=== PATIENT | female | born 1960 ===

== ENCOUNTER 2017-01-06 17:02 | Observation (INO) | payer MEDICARE, MEDICAID ==
[~2017-01-06] VITALS: Ht 175.3 cm; Wt 175.3 kg
[~2017-01-06 17:02] MED LIST: ALBU18HF INH; ARIP20TA10 PO; ARIP30TA PO; DOCU240C41 PO; EPIN0.3P2 IM; FLUT16SP NASAL; FRSM80T PO; HYDR50TA76 PO; INSU100I18 SQ; INSU100V7 SUBQ; IPRA3AMP IH; LAMO200T2 PO; MOME13HF IH; MONT10TA23 PO; NITR0.4T SL; OMEP40CA36 PO; ONDA-53 PO; OXYC1TAB24 PO; PRAM0.5T3 PO; PRAZ1CAP2 PO; PRAZ5CAP3 PO; PRE10 PO; PREG200C PO; PROC10TA PO; SIMV40TA5 PO; SPIR50TA2 PO; TOPI50TA88 PO; TRAZ-115 PO; VENL37.587 PO
[2017-01-06 17:08] VITALS: PULSE 104; RESP 22; O2SAT 100
--- NOTE | 2017-01-06 17:59 | ED.REPORT ---
HPI-Dyspnea / Wheezing Date of Service Jan 06, 2017 ED Provider: Brendan Huang DO A 56 year old female with a medical history including diabetes, COPD, CVA, and sleep apnea on BiPAP presents to the ED with shortness of breath onset just prior to arrival. Associated symptoms include wheeze, cough, chest congestion, chills, nausea, vomiting, and diarrhea. The patient denies fever. She used a double dose of nebulizer at home with no improvement. Nursing Notes Stated Complaint: SHORTNESS OF BREATH Chief Complaint: Respiratory Distress Nursing Notes Reviewed: Yes Allergies: Coded Allergies: Penicillins (Verified Allergy, Severe, Anaphylaxis/SWELLING, 10/12/16) fluoxetine (Verified Allergy, Severe, MOOD ALTERATION, 10/12/16) haloperidol (Verified Allergy, Severe, body jerks, 10/12/16) lithium (Verified Allergy, Severe, SWELLING, 10/12/16) morphine (Verified Allergy, Severe, Hallucinations, 10/12/16) pramipexole (Verified Allergy, Severe, 10/12/16) hypertension propoxyphene (Verified Allergy, Severe, NAUSEA, 10/12/16) sumatriptan (Verified Allergy, Severe, 10/12/16) HIGH BLOOD PRESSURE tyropanic acid (Verified Allergy, Severe, Nausea, 10/12/16) erythromycin base (Verified Allergy, Intermediate, severe abd pain, ) propranolol (Verified Allergy, Intermediate, hypotension, 01/06/17) cephalexin (Verified Allergy, Unknown, 10/12/16) Uncoded Allergies: ASPARAGUS (Allergy, Mild, UNKNOWN, 10/12/16) STRAWBERRIES (Allergy, Unknown, UNKNOWN, 09/22/12) Scheduled Aripiprazole (Aripiprazole) 15 Mg Tablet 15 MG PO DAILY HydrOXYzine HCl (HydrOXYzine HCl) 10 Mg Tablet 50 MG PO HS Insulin Aspart (NovoLOG U100 Insulin Vial) 100 U/Ml U 30-50 UNIT SUBQ TIDAC Insulin Glargine (Lantus U100 Insulin Vial) 100 Unit/Ml Vial 40 SUBQ BID Omeprazole (Omeprazole) 40 Mg Capsule.dr 40 MG PO BID Prazosin (Prazosin) 5 Mg Capsule 5 MG PO HS Pregabalin (Lyrica) 200 Mg Capsule 200 MG PO TID Simvastatin (Simvastatin) 40 Mg Tablet 40 MG PO HS Spironolactone (Spironolactone) 50 Mg Tablet 50 MG PO BID Topiramate (Topiramate) 100 Mg Tablet 100 MG PO BID Trazodone (Trazodone) 50 Mg Tablet 75 MG PO HS Venlafaxine ER (Venlafaxine ER) 75 Mg Tab.er.24 75 MG PO DAILY Scheduled PRN Albuterol Sulfate (Ventolin HFA Inhaler) 200 Puff/18 Gm Inhaler 2 PUFFS INH PRN For Shortness of Breath Epinephrine (Epipen 2-Ipetro) 0.3 Mg/0.3 Ml Auto.injct 0.3 MG IM PRN For Anaphyllaxis Ipratropium/Albuterol Sulfate (Iprat-Albut 0.5-3(2.5) mg/3 mL Inhalant Soln) 3 Ml Ampul.neb 3 ML IH TID-QID PRN PRN For Shortness of Breath Nitroglycerin SL (Nitrostat) 0.4 Mg Tab.subl 0.4 MG SL Q5MIN PRN PRN For Chest Pain oxyCODONE-Acetaminophen 5-325 mg (oxyCODONE-Acetaminophen 5-325 mg) 1 Each Tablet 1 TAB PO QID PRN PRN For Pain Miscellaneous Medications Docusate Sodium (Docusate Sodium) 250 Mg Capsule 500 MG PO General Time Seen by MD: 17:58 Chief Complaint Shortness of breath Hx Obtained From: Patient Arrived By: Walk-in Sudden in Onset?: No Onset Occurred: Just prior to arrival Symptom Duration: Since onset Location: : None Severity: Current: No pain currently Severity: Maximum: No pain Associated with: Reports: Cough, Nausea, Vomiting, Wheeze, Denies: Fever Pertinent Negative: Relieved by nothing Context Related History: Reports: COPD Asthma History: Asthma diagnosed Recent Healthcare: No recent doctor visit Similar Sx Previous: Yes Past Medical History Past Medical History Notes: Past Medical History Fibromyalgia Type 2 diabetes COPD Asthma Restless leg Bipolar disorder Depression CVA Sleep apnea-On BIPAP arthritis GERD Past Surgical History Right ankle ORIF and hardware removal Exostectomy an Achilles tendon lengthening. Left eye surgery. She has a prosthetic left eye. Arthroscopic knee and shoulder surgery. Family History Mother: CHF, CKD, DM, stroke, breast cancer Father: Cardiovascular disease, CKD, alcoholic Brother: Cardiovascular disease (7 stents), alcoholic Smoking History Former Smoker Social History Alcohol Use: "Social" Drug Use: Denies drug use Other Social History: Good social support, Local resident Ambulatory Status Independent Review of Systems Review of Systems Note: + chest congestion Constitutional: Reports: Chills, Denies: Fever Respiratory: Reports: Non-productive cough, Shortness of breath, Wheezing Complete sys rev & neg: except as marked. GI: Reports: Diarrhea, Nausea, Vomiting Physical Exam Initial Vital Signs Vital Signs (First) Date Time Temp Pulse Resp B/P Pulse Ox O2 Delivery O2 Flow Rate FiO2 01/06/17 17:08 37 104 22 100 Room Air Initial VS: Reviewed Head / Eyes: Atraumatic, Normocephalic Skin: Warm, Dry Neurologic: Alert, Oriented, Nonfocal Psychiatric: Mood/affect normal, Behavior normal, Normal thought content General/Constitutional: Awake, Alert Distress / Hydration: Positive: Distress moderate Appearance / Presentation: Positive: Obese Neck: Supple, Full range of motion, No JVD Respiratory / Chest: Breath sounds = bilat Resp Distress / Stridor: Positive: Resp distress moderate Wheezing / Retractions: Positive: Wheezing moderate (Diffuse) Tachypneic Cardiovascular: Regular rhythm, Heart sounds NL Heart Rate / Rhythm: Positive: Tachycardia Lower Ext Edema: Positive: Pitting (Bilateral) Interpretation & Diagnostics INFLUENZA NEGATIVE Lab Results Interpretation Result Diagram: 01/06/178 01/06/178 Test 01/06/17 18:38 White Blood Count 9.0th/mm3 (3.8-10.1) Red Blood Count 4.93mil/mm3 (3.90-5.20) Hemoglobin 13.8g/dL (12.0-15.6) Hematocrit 42.4% (35.0-46.0) Mean Corpuscular Volume 86.0fL (81-100) Mean Corpuscular Hemoglobin 28.0pg (27.0-35.0) Mean Corpuscular Hemoglobin Concent 32.5% (32.0-37.0) Red Cell Distribution Width 13.9% (12.3-15.4) Platelet Count 204bil/L (150-400) Neutrophils (%) (Auto) 66.8% (40-74) Lymphocytes (%) (Auto) 23.0% (14-46) Monocytes (%) (Auto) 7.7% (4-12) Eosinophils (%) (Auto) 1.9% (0-5) Basophils (%) (Auto) 0.3% (0-3) Sodium Level 139mEq/L (134-144) Potassium Level 3.8mEq/L (3.5-5.2) Chloride Level 101mEq/L (97-108) Carbon Dioxide Level 23mmol/L (18-29) Blood Urea Nitrogen 11mg/dL (6-24) Creatinine 0.87mg/dL (0.57-1.00) Estimat Glomerular Filtration Rate 96mL/min (>59) Glucose Level 155mg/dL (60-99) Calcium Level 9.0mg/dL (8.5-10.1) Magnesium Level 2.0mg/dL (1.6-2.6) Total Bilirubin 0.2mg/dL (0.0-1.2) Aspartate Amino Transf (AST/SGOT) 19U/L (0-50) Alanine Aminotransferase (ALT/SGPT) 18U/L (0-32) Alkaline Phosphatase 119U/L (25-150) Troponin T < 0.010ug/L (0.0-0.011) Pro-B-Type Natriuretic Peptide 30.08pg/mL (0-287) Total Protein 7.5g/dL (6.4-8.4) Albumin 4.1g/dL (3.4-5.0) Procalcitonin 0.05ng/mL (0.00-0.08) Hold Byrd Top Tube Received (Received) ECG Interpretation ECG Interpretation: Sinus rhythm rate 91 Time: 18:31 Interpreted by: ED physician X-Ray Chest Interpretation Chest Xray Interpretation: IMPRESSION: No acute cardiopulmonary disease. Dictated by: Oscar Vazquez M.D. on 01/06/2017 at 17:56 View: AP & lat Interpretation / Wet Read by: Interpret - Radiologist Re-Eval/Medical Decision Source of Hx: Old records Re-Evaluation/Progress #1: Time of Eval: 19:07 Patient Status: Condition improved Re-Evaluation/Progress Note: Discussed with patient x-ray and lab results, diagnosis, and plan for admit. Patient agrees with plan for care and all questions were addressed. Re-Evaluation/Progress #2: Time of Eval: 20:14 Patient Status: Condition improved Re-Evaluation/Progress Note: Patient is breathing significantly better but is actively coughing and vomiting in the ED. Consultation : Referral / Consult Name: Jerrod Jerome MD Call Returned at: 20:35 Pegger Dobby Looms: Agrees with eval, Agrees with plan, Accepts admit Counseled Regarding: Diagnosis, Lab results, Need for admission Discharge & Departure Impression: Primary Impression: Respiratory distress Additional Impression: COPD with acute exacerbation Disposition: ADMITTED TO HOSPITAL Discharge Condition All VS Reviewed: Yes Condition: Stable Referrals: David Stephen MD (PCP) Scribe Attestation Portions of this note were transcribed by Kristen Jaime. Dr. Reina Arreguin, personally performed the history, physical exam, and medical decision-making; I reviewed and confirmed the accuracy of the information in the transcribed note. Signed by: Tal Steele, 01/06/2017, 21:47 copies to: David Stephen MD, Todd P DO Jan 06, 2017 17:59 KRISTEN JAIME Jan 06, 2017 18:51 Referrals: David Stephen MD (PCP) Scribe Attestation Portions of this note were transcribed by Kristen Jaime. Dr. Reina Arreguin, personally performed the history, physical exam, and medical decision-making; I reviewed and confirmed the accuracy of the information in the transcribed note. Signed by: Tal Steele, 01/06/2017, 21:47 copies to: David Stephen MD, Todd P DO Jan 06, 2017 17:59 KRISTEN JAIME Jan 06, 2017 18:51
--- NOTE | 2017-01-06 18:03 | DRSVH ---
PROCEDURE: X-RAY CHEST, TWO VIEWS ([id number]) INDICATIONS: 56 year-old female with shortness of breath. TECHNIQUE: 2 views of the chest were acquired. COMPARISON: [facility], CR, XR CHEST 1VW (PORTABLE), 10/12/2016, 8:48. [facility], CR, XR CHEST 2V AP/PA AND LAT, 10/10/2016, 7:43 PM. [facility], CR, XR CHEST 2 V AP/PA AND LAT, 06/10/2016, 7:50 PM. FINDINGS: Surgical changes and devices: Thoracic spine stimulator electrodes are again noted. Lungs and pleura: No pleural effusions or pneumothorax. Lungs are clear. Mediastinum: Mediastinal contours are normal. Heart size is normal. Bones and chest wall: No suspicious bony abnormalities. Soft tissues appear unremarkable. IMPRESSION: No acute cardiopulmonary disease. Dictated by: Oscar Vazquez M.D. on 01/06/2017 at 17:56 Approved by: Oscar Vazquez M.D. on 01/06/2017 at 17:57
[2017-01-06] MEDS ORDERED: Albuterol 2.5 mg/3 mL Inhalation Solution NEB ONE ×2 (18:10→18:25)
[2017-01-06] MEDS ORDERED: Albuterol-Ipratropium 3 mL Inhalation Solution NEB ONE (18:25)
[2017-01-06] MEDS ORDERED: MethylprednisoLONE Sodium Succinate 62.5 mg/mL 2 mL Inj IVPUSH ONE (18:25)
[2017-01-06 18:46] LABS: BASOPHILS % (AUTO) 0.3 % (0-3); EOSINOPHILS % (AUTO) 1.9 % (0-5); MONOCYTES % (AUTO) 7.7 % (4-12); NEUTROPHILS % (AUTO) 66.8 % (40-74); Platelet Count 204 bil/L (150-400)
[2017-01-06 19:18] LABS: TROPONIN T < 0.010 ug/L (0.0-0.011)
[2017-01-06] MEDS ORDERED: Lidocaine PF 2% 5 mL Inhalation Solution INHALATION ONE (19:25)
[2017-01-06 19:33] VITALS: PULSE 100; RESP 22; O2SAT 91
[2017-01-06] MEDS ORDERED: Ondansetron 2 mg/mL 2 mL Inj IVPUSH PRN (20:15)
[2017-01-06] MEDS ORDERED: Doxycycline Inj 100 MG in Dextrose 5% Minibag Plus 100 ML IV ONE (20:30)
[2017-01-06] MEDS ORDERED: Polyethylene Glycol (PEG) 17 Gm Powder PO PRN (20:40)
[2017-01-06] MEDS ORDERED: Alum-Mag Hydrox-Simeth 30 mL Suspension PO PRN (20:40)
[2017-01-06] MEDS ORDERED: Glucose 40% Oral Gel 15 Gm Tube PO PRN (21:05)
[2017-01-06 21:28] VITALS: BP 134/70; PULSE 102; RESP 20; O2SAT 91
[2017-01-06 22:26] VITALS: BP 119/76; PULSE 99; RESP 24; O2SAT 94
[2017-01-06] MEDS: Insulin LISPRO 300 Unit/3 mL Inj SUBQ SCH (23:03)
[2017-01-06] MEDS ORDERED: DOCU250C2 PO (23:59)
[2017-01-07] VITALS (13 sets, daily range): BP systolic 108–143; BP diastolic 51–83; PULSE 67–89; RESP 15–24; O2SAT 90–97
[2017-01-07] MEDS ORDERED: INSU100V7 SUBQ
[2017-01-07] MEDS ORDERED: INSU100C8 SUBQ (00:02)
[2017-01-07] MEDS ORDERED: VENL75TA87 PO (00:05)
[2017-01-07] MEDS ORDERED: HYDR-3605 PO (00:07)
[2017-01-07] MEDS ORDERED: ARIP15TA7 PO (00:09)
[2017-01-07] MEDS ORDERED: TOPI-31 PO (00:12)
[2017-01-07] MEDS ORDERED: 0.9% Sodium Chloride 250 ML ONE (00:25)
[2017-01-07] MEDS: Heparin 5,000 Unit/mL Inj SUBQ SCH ×3 (00:34→17:43)
[2017-01-07] MEDS: Albuterol-Ipratropium 3 mL Inhalation Solution NEB SCH ×6 (01:55→22:02)
[2017-01-07] MEDS: Nystatin 100,000 Unit/Gm 15 Gm Powder TOPICAL SCH ×3 (02:06→21:40)
--- NOTE | 2017-01-07 02:40 | PCM.HPMED ---
Subjective Date of Service Jan 06, 2017 Primary Provider: Admitting Physician: Primary Care Physician: David Stephen MD Attending Physician: Chief Complaint: Acute shortness of breathe History of Present Illness: Janet Pat is a 56 year old female with Diabetes, COPD, Stroke, and sleep apnea on BiPAP presents to [facility] emergency department with shortness of breath onset just prior to arrival. Patient reporting symptoms have been ongoing for 4 days. Associated symptoms include wheeze, dry cough, chest congestion, chills, nausea, vomiting, and diarrhea. The patient denies fever. She used a double dose of nebulizer at home with no improvement earlier today. Her room mate was coughing last week. She continues to smoke Patient was hospitalized for similar issues in September. He had her flu vaccination last year Case discussed with Dr Huang, patient will be admitted with persistent symptoms despite intervention in the ED. Review of Systems: Pertinent positives as noted in HPI. All other systems were reviewed and are negative Allergies Coded Allergies: Penicillins (Verified Allergy, Severe, Anaphylaxis/SWELLING, 10/12/16) fluoxetine (Verified Allergy, Severe, MOOD ALTERATION, 10/12/16) haloperidol (Verified Allergy, Severe, body jerks, 10/12/16) lithium (Verified Allergy, Severe, SWELLING, 10/12/16) morphine (Verified Allergy, Severe, Hallucinations, 10/12/16) pramipexole (Verified Allergy, Severe, 10/12/16) hypertension propoxyphene (Verified Allergy, Severe, NAUSEA, 10/12/16) sumatriptan (Verified Allergy, Severe, 10/12/16) HIGH BLOOD PRESSURE tyropanic acid (Verified Allergy, Severe, Nausea, 10/12/16) erythromycin base (Verified Allergy, Intermediate, severe abd pain, ) propranolol (Verified Allergy, Intermediate, hypotension, 01/06/17) cephalexin (Verified Allergy, Unknown, 10/12/16) Uncoded Allergies: ASPARAGUS (Allergy, Mild, UNKNOWN, 10/12/16) STRAWBERRIES (Allergy, Unknown, UNKNOWN, 09/22/12) Home Medications From [facility], not yet confirmed Janet Pat. [id number] 1960 12/27/2016 04:00 PM 12/03 Abilify 20 mg tablet take 1 tablet by oral route every day albuterol sulfate HFA 90 mcg/actuation aerosol inhaler inhale 2 puff by inhalation route every 4 - 6 hours as needed DuoNeb 0.5 mg-3 mg(2.5 mg base)/3 mL solution for nebulization inhale 1 vial by nebulizer every 3 hours while awake and every 1 hours as needed for shortness of breath EpiPen 0.3 mg/0.3 mL (1:1,000) IM Injector inject (0.3MG) by intramuscular route once as needed for anaphylaxis Fioricet 50 mg-325 mg-40 mg tablet take 1 tablet by oral route every 4 hours as needed not to exceed 6 tablets per 24hrs; no more than 2xweek fluticasone 50 mcg/actuation nasal spray,suspension INHALE 1 SPRAY BY INTRANASAL ROUTE 2 TIMES EVERY DAY IN EACH NOSTRIL Lantus Solostar 100 unit/mL (3 mL) subcutaneous insulin pen inject by subcutaneous route as per insulin protocol 60 units in am and 60 units in pm every day Lasix 80 mg tablet TAKE 2 TABLETS ORALLY TWICE DAILY. lidocaine 5 % topical patch apply 1 patch by transdermal route every day (May wear up to 12hours.) Lyrica 200 mg capsule take 1 capsule by oral route 3 times every day magnesium 250 mg tablet as needed meclizine 25 mg tablet take 1 tablet by oral route 3 times every day as needed melatonin 5 mg capsule 1-2 at bedtime as needed Mirapex 0.5 mg tablet TAKE ONE TABLET BY MOUTH 2-3 HRS BEFORE BEDTIME MONTELUKAST 10MG TABLETS TAKE 1 TABLET BY MOUTH EVERY NIGHT AT BEDTIME Nitrostat 0.[address] 1 tablet by sublingual route at the 1st sign of attack; may repeat every 5 min until relief; if pain persists after 3 tablets in 15 min, prompt medical attention is recommended Novolog Flexpen 100 unit/mL subcutaneous inject by subcutaneous route per prescriber's instructions. Insulin dosing requires individualization. nystatin 100,000 unit/gram topical cream apply by topical route 2 times every day to the affected area(s) omeprazole 40 mg capsule,delayed release Take 1 capsule by mouth every morning about 30 minutes before breakfast and 30 minutes before dinner oxycodone-acetaminophen 5 mg-325 mg tablet take 1 tablet by oral route every 6 hours as needed prochlorperazine maleate 10 mg tablet take 1 tablet for nausea with migraine up to 3 times daily simvastatin 40 mg tablet TAKE ONE TABLET BY MOUTH EACH EVENING for high cholesterol. spironolactone 50 mg tablet TAKE 1 TABLET (50MG) BY ORAL ROUTE TWICE EVERY DAY topiramate 100 mg tablet TAKE 1 TABLET BY ORAL ROUTE 2 TIMES EVERY DAY trazodone 50 mg tablet take 1.5 tablet by oral route every day after meals Vitamin C 1,000 mg tablet Taking 1 tablets daily Vitamin D3 1,000 unit tablet take 2 tablet a day Voltaren 1 % topical gel apply (2G) by topical route 4 times every day to the affected area(s) PMH Fibromyalgia Type 2 diabetes COPD Asthma Restless leg Bipolar disorder Depression CVA Sleep apnea-On BIPAP Arthritis GERD . Surgical History Right ankle ORIF and hardware removal Exostectomy an Achilles tendon lengthening. Left eye surgery. She has a prosthetic left eye. Arthroscopic knee and shoulder surgery. Family History Mother: CHF, CKD, DM, stroke, breast cancer Father: Cardiovascular disease, CKD, alcoholic Brother: Cardiovascular disease (7 stents), alcoholic Social History Hx Alcohol Use: Yes ("occasionally") Hx Substance Use: No Hx Tobacco Use: Yes (10 cigarettes/day) Smoking Status: Former Smoker Living Arrangement: with Friends/Roommate Exam Vital Signs Vital Sign - Last Date Time Temp Pulse Resp B/P Pulse Ox O2 Delivery O2 Flow Rate FiO2 01/06/17 19:33 100 22 91 Room Air 01/06/17 17:08 37 Exam General: Alert, Oriented X3, Cooperative, No acute Distress. Talking full sentences Eyes: PERRLA, Scleral Anicteric Mouth: Mouth Normal, Mucous Membranes Moist/[place] Neck: Supple, no Thyromegaly, trachea central. Chest & Lungs: Expiratory wheezing with decreased breathe sounds at bases Cardiovascular: Normal S1, Normal S2, No Murmurs/Rubs/Gallops, Regular Rate/ Rhythm, (No JVD, no peripheral edema) Pulses: Radial (present and equal), Dorsalis Pedi (present and equal) Abdomen: Soft, Non-tender, Non-distended, Normoactive bowel tones. Musculoskeletal: Unremarkable. Normal range of motion, no swollen or erythematous joints Extremities: No edema, no cyanosis, no clubbing. Skin: No rashes. Warm and dry, no erythematous areas Neurological: Grossly neurologically intact, Normal Speech, Sensation Intact Lymphatic: Lymph nodes Cervical and Axillary not palpable. Lab and Diagnostics Labs Laboratory Tests Test 01/06/17 18:38 White Blood Count 9.0th/mm3 (3.8-10.1) Red Blood Count 4.93mil/mm3 (3.90-5.20) Hemoglobin 13.8g/dL (12.0-15.6) Hematocrit 42.4% (35.0-46.0) Mean Corpuscular Volume 86.0fL (81-100) Mean Corpuscular Hemoglobin 28.0pg (27.0-35.0) Mean Corpuscular Hemoglobin Concent 32.5% (32.0-37.0) Red Cell Distribution Width 13.9% (12.3-15.4) Platelet Count 204bil/L (150-400) Neutrophils (%) (Auto) 66.8% (40-74) Lymphocytes (%) (Auto) 23.0% (14-46) Monocytes (%) (Auto) 7.7% (4-12) Eosinophils (%) (Auto) 1.9% (0-5) Basophils (%) (Auto) 0.3% (0-3) Sodium Level 139mEq/L (134-144) Potassium Level 3.8mEq/L (3.5-5.2) Chloride Level 101mEq/L (97-108) Carbon Dioxide Level 23mmol/L (18-29) Blood Urea Nitrogen 11mg/dL (6-24) Creatinine 0.87mg/dL (0.57-1.00) Estimat Glomerular Filtration Rate 96mL/min (>59) Glucose Level 155mg/dL (60-99) Calcium Level 9.0mg/dL (8.5-10.1) Magnesium Level 2.0mg/dL (1.6-2.6) Total Bilirubin 0.2mg/dL (0.0-1.2) Aspartate Amino Transf (AST/SGOT) 19U/L (0-50) Alanine Aminotransferase (ALT/SGPT) 18U/L (0-32) Alkaline Phosphatase 119U/L (25-150) Troponin T < 0.010ug/L (0.0-0.011) Pro-B-Type Natriuretic Peptide 30.08pg/mL (0-287) Total Protein 7.5g/dL (6.4-8.4) Albumin 4.1g/dL (3.4-5.0) Hold Byrd Top Tube Received (Received) Microbiology 01/06/17 Blood Culture, Received Pending 01/06/17 Influenza Screen - Final, Complete Result Diagram: 01/06/17183701/06/171837 X-Rays, CTs and MRIs X-RAY CHEST, TWO VIEWS 01/06 IMPRESSION: No acute cardiopulmonary disease. Dictated by: Oscar Vazquez M.D. on 01/06/2017 at 17:56 Approved by: Oscar Vazquez M.D. on 01/06/2017 at 17:57 Assessment & Plan Janet Pat is a 56 year old female with Diabetes, COPD, Stroke, and sleep apnea on BiPAP presents to [facility] emergency department with shortness of breath 1. COPD with acute exacerbation. Present on admission. Chest X ray showed no infiltrates and procalcitonin not elevated. I doubt patient has a bacterial infection and therefore does not need antibiotics. Patient also has history of Asthma and its difficult to say if the patient also has Asthma attack as well. Last September an echo showed no evidence to suggest patient has Heart failure. With the flu season in full swing a viral PCR will be obtained - Prednisone 40 mg daily x 5 days - DuoNeb scheduled - continue Singulair - continue Fluticasone and Dulera 2. Diabetes Type 2, insulin using with diabetic neuropathy Anticipating some steroid induced hyperglycemia - continue Lantus 60 BID and Lyrica - Lispro medium correction algorithm 3 Obstructive Sleep apnea - On BIPAP for sleep at home. Continue BiPAP at night 4 Asthma - Continue home montelukast 5. Nicotine dependence. ongoing Counseled patient concerning cessation and benefits - Nicotine patch as needed 6. Restless leg syndrome - Continue home Mirapex 7 Hyperlipidemia - Continue home simvastatin - Acetaminophen as needed for mild pain/fever/headache - Bowel regimen as needed - Antiemetic as needed Patient admitted under inpatient status with expected length of stay > 2 midnights for severity of present symptoms, complexities of treatment plan and risk for adverse event . Resuscitation Status: CPR: Attempt Resuscitation Jerrod Jerome MD Jan 06, 2017 20:46
[2017-01-07] MEDS: oxyCODONE-Acetamin 5-325 mg Tablet PO PRN ×2 (03:40→18:19)
--- NOTE | 2017-01-07 06:03 | NUR ---
Progress Note PT was admitted to the floor from the ED around 2300 last [facility]. She presented to ED with SOB and cough. MD reports at bedside it is believed to be viral. CXRAY was negative. She also has a hx of COPD and asthma contributing. She is on 1lNC and sats are in low 90's. Her lung sanchez are extremely tight t/o with audible wheezes noted. We administered IV doxycycline. She was medicated once with prn percocet for chronic pain related issues. SHe has spinal stenosis and a spinal stimulator, resulting in BLE weakness and severe pain. Good relief with medication. She uses a cpap at [facility]. PT also diabetic. BG in 200's. SHe is obese, but able to ambulate with a walker and 1 person SBA. Her skin is grossly intact aside from redness under her bilateral breasts where miconazole was applied. Tessalon pearls given once with good relief of cough. Will CTM. Addendum: 01/07/17 at 0609 by VANESA FERNÁNDEZ RN She is in NSR in the 80's.
[2017-01-07] MEDS: Venlafaxine XR 75 mg ER24 Capsule PO SCH (08:30)
[2017-01-07] MEDS: Pantoprazole 40 mg ER24 Tablet PO SCH ×2 (09:36→21:38)
[2017-01-07] MEDS: predniSONE 20 mg Tablet PO SCH (09:36)
--- NOTE | 2017-01-07 09:37 | NUR ---
Social Work: Initial Assessment D: Per EMR review, pt is a 56 year old female admitted for Acute Exacerbation of COPD. Pt is Medicare with [facility] supplement; pt has no LTC insurance or VA benefits. PCP is David Stephen MD. NOK is Jocelynn Sifuentes, s/o, . Advanced directive and DPOA ppw on file from 2009- pt states to [employer] that this current AD and DPOA is no longer valid and would like it removed from her medical record. Pt provided with a blank copy as she would like to have her s/o named as DPOA. [employer] contacted Medical Records to have 2010 AD and DPOA ppw removed from the pt's EMR, per pt's request. Readmit score is not entered at this time. DATA [employer]NER met with pt at bedside. Sw role explained. See initial assessment. Pt lives at home, is [place]aila [place] with her s/o. Pt states she uses a walker for ambulation in the home and uses an electric scooter for ambulation in the community. Pt also has a Bipap and Nebulizer supplied through [employer]. Pt denies ever having HH but had a short stay at [facility] several years ago. [employer] reviewed possible HH as a discharge referral. Pt can not commit to homebound status and states she would prefer to do outpatient PT if necessary. Pt states that her s/o will transport her home when ready. A: Pt who lives at home with her s/o. P: Anticipate pt to discharge home via POV; Pt declined HH- is not homebound. No social work needs identified at this time. [employer] to continue to follow. PRIYANK Tang Addendum: 01/07/17 at 0946 by CORDELL SANTIAGO SS Amended: Links added.
[2017-01-07] MEDS: Insulin LISPRO 300 Unit/3 mL Inj SUBQ SCH ×4 (10:05→21:41)
[2017-01-07] MEDS: Insulin GLARgine 100 Unit/mL Syringe SUBQ SCH ×2 (10:08→21:51)
--- NOTE | 2017-01-07 12:34 | NUR ---
Coughing Patient at side of bed coughing intermittently, this RN administered Tessalon Pearls. Patient stated it helped, visiting with significant other while sitting on side of bed. Care continues.
--- NOTE | 2017-01-07 12:58 | NUR ---
Case Management: Clarification of patient status: observation per MD order. Ania Ramirez RN
--- NOTE | 2017-01-07 13:27 | NUR ---
Discharge Patient discharged at approximately 1310 to home with son. Patient given discharge packet to include: Two new prescriptions, next dose to be taken for medications clearly written and dated, educational material for Community Acquired Pneumonia and follow up appointment scheduled. Patient's IV's DC'd with both catheters intact, tele DC'd youth nutritional monitor notified. Patient left with all belongings, escorted by DIRECTOR OF PSYCHIATRY in wheelchair with son to the door. Addendum: 01/07/17 at 1525 by SUSU PARKER RN Wrong patient
--- NOTE | 2017-01-07 14:16 | PCM.PNMED ---
Subjective Date of Service Jan 07, 2017 Subjective Patient was examined at bedside today. Patient denies any chest pain, nausea, vomiting, diarrhea. Patient still complains of cough and shortness of breath however she states that this is significantly improved. Exam Vital Signs Vital Sign - Last Date Time Temp Pulse Resp B/P Pulse Ox O2 Delivery O2 Flow Rate FiO2 01/07/17 13:31 88 18 92 Aerosol Mask 01/07/17 12:04 143/71 01/07/17 09:10 36.5 01/07/17 04:07 21 Intake and Output 01/06/17 01/06/17 01/07/17 Cumulative From/Thru 15:00 23:00 07:00 01/06/17 17:08 - 01/07/17 06:20 Intake Total 737 ml 737 ml Output Total 600 ml 600 ml Balance 137 ml 137 ml Intake Oral 637 ml 637 ml IV Total 100 ml 100 ml Output Urine Total 600 ml 600 ml # Voids 2 2 Exam Physical Exam: GEN: Patient was awake, alert, responding appropriately to questions HEENT: PERRLA, EOMI, Neck soft supple, trachea midline, nomocephalic/atraumatic CV: +S1/S2, RRR, no murmurs auscultated Respiratory: Coarse breath sounds, positive wheezing, no rales or rhonchi GI: +bowel sounds x4, soft, compressible, non TTP, obese EXT: no c/c/e Neuro: CN II-XII grossly intact Psych: mood and affect were appropriate IVs and Medications Medications Reviewed: Medications were reviewed in detail Medications Current Medications Ondansetron HCl 4 mg Q15M PRN IVPUSH Last administered on 01/06/17 20:19; Admin Dose 4 MG; Start 01/06/17 at 20:15 Heparin Sodium (Porcine) 5,000 unit Q8 SUBQ Last administered on 01/07/17 10:07 ; Admin Dose 5,000 UNIT; Start 01/07/17 at 00:30 Al Hydrox/Mg Hydrox/Simethicone 30 ml Q6H PRN PO; Start 01/06/17 at 20:40 Senna 17.2 mg BID PRN PO; Start 01/06/17 at 20:40 Polyethylene Glycol 17 gm DAILY PRN PO; Start 01/06/17 at 20:40 Acetaminophen 650 mg Q4H PRN PO; Start 01/06/17 at 20:40 Prednisone 40 mg DAILYWM PO Last administered on 01/07/17 09:36; Admin Dose 40 MG; Start 01/07/17 at 08:00 Albuterol/ Ipratropium 3 ml Q4 NEB Last administered on 01/07/17 13:28; Admin Dose 3 ML; Start 01/07/17 at 00:30 Insulin Human Lispro Nutritional Dose to be given pr... [facility] SUBQ Last administered on 01/07/17 12:41; Admin Dose 1 UNIT; Start 01/06/17 at 22:00 Benzonatate 100 mg TID PRN PO Last administered on 01/07/17 10:08; Admin Dose 100 MG; Start 01/06/17 at 22:30 Nystatin 1 applic BID TOPICAL Last administered on 01/07/17 10:10; Admin Dose 1 APPLIC; Start 01/07/17 at 00:30 Aripiprazole 15 mg DAILY PO Last administered on 01/07/17 09:37; Admin Dose 15 MG; Start 01/07/17 at 08:30 Docusate Sodium 500 mg DAILY PO Last administered on 01/07/17 09:38; Admin Dose 500 MG; Start 01/07/17 at 08:30 Insulin Glargine 60 unit BID SUBQ Last administered on 01/07/17 10:08; Admin Dose 60 UNIT; Start 01/07/17 at 08:30 Nitroglycerin 0.4 mg Q5MIN PRN SL; Start 01/07/17 at 00:30 Oxycodone/ Acetaminophen 1 tab QID PRN PO Last administered on 01/07/17 03:40 ; Admin Dose 1 TAB; Start 01/07/17 at 00:30 Prazosin HCl 5 mg HS PO; Start 01/07/17 at 21:00 Topiramate 100 mg BID PO Last administered on 01/07/17 09:37; Admin Dose 100 MG ; Start 01/07/17 at 08:30 Trazodone HCl 75 mg HS PO; Start 01/07/17 at 21:00 Hydroxyzine HCl 50 mg HS PO; Start 01/07/17 at 21:00 Pantoprazole 40 mg BID PO Last administered on 01/07/17 09:36; Admin Dose 40 MG ; Start 01/07/17 at 08:30 Pregabalin 200 mg TID PO Last administered on 01/07/17 10:08; Admin Dose 200 MG ; Start 01/07/17 at 08:30 Atorvastatin Calcium 20 mg HS PO; Start 01/07/17 at 21:00 Spironolactone 50 mg BID PO Last administered on 01/07/17 09:38; Admin Dose 50 MG; Start 01/07/17 at 08:30 Venlafaxine HCl 75 mg DAILY PO Last administered on 01/07/17 08:30; Admin Dose 75 MG; Start 01/07/17 at 08:30 Lab and Diagnostics Result Diagram: 01/06/17 1838 01/06/17 1838 X-Rays, CTs and MRIs X-RAY CHEST, TWO VIEWS 01/06 IMPRESSION: No acute cardiopulmonary disease. Dictated by: Oscar Vazquez M.D. on 01/06/2017 at 17:56 Approved by: Oscar Vazquez M.D. on 01/06/2017 at 17:57 Assessment & Plan Janet Pat is a 56 year old female with Diabetes, COPD, Stroke, and sleep apnea on BiPAP presents to [facility] emergency department with shortness of breath COPD with acute exacerbation. Present on admission. Chest X ray showed no infiltrates and procalcitonin not elevated. I doubt patient has a bacterial infection and therefore does not need antibiotics. Patient also has history of Asthma and its difficult to say if the patient also has Asthma attack as well. Last September an echo showed no evidence to suggest patient has Heart failure. With the flu season in full swing a viral PCR will be obtained - Prednisone 40 mg daily x 5 days - DuoNeb scheduled - continue Singulair - continue Fluticasone and Dulera -Flu negative - PCR positive for RSV Diabetes Type 2, insulin using with diabetic neuropathy Anticipating some steroid induced hyperglycemia - continue Lantus 60 BID and Lyrica - Lispro medium correction algorithm Obstructive Sleep apnea - On BIPAP for sleep at home. Continue BiPAP at night Asthma - Continue home montelukast Nicotine dependence. ongoing Counseled patient concerning cessation and benefits - Nicotine patch as needed Restless leg syndrome - Continue home Mirapex Hyperlipidemia - Continue home simvastatin - Acetaminophen as needed for mild pain/fever/headache - Bowel regimen as needed - Antiemetic as needed Disposition: Patient is currently progressing well and her oxygen needs are decreasing. Patient has tested positive for RSV and this is most likely precipitated the patient's COPD exacerbation. We will continue with supportive care and if the patient continues to progress well she may be able to be discharged home tomorrow. Resuscitation Status: CPR: Attempt Resuscitation Aydee Donaldson DO Jan 07, 2017 14:16
--- NOTE | 2017-01-07 15:24 | NUR ---
Case Management: Provided Medicare BRYAN information with explanation at 1445- signed by patient and placed in chart. Copy to patient. Ania Ramirez RN
--- NOTE | 2017-01-07 18:37 | NUR ---
Sleepy/SOB Patient sleeping most of day with CPAP machine on after SO left. Patient tachypneic while moving from sitting on edge of bed to lying flat. SPO2 at 94% RA during exertion. Provided 1L NC for comfort for pt. Pt resting comfortably. Care continues.
[2017-01-08] VITALS (7 sets, daily range): BP systolic 113–114; BP diastolic 57–58; PULSE 66–80; RESP 16–18; O2SAT 92–95
[2017-01-08] MEDS: Heparin 5,000 Unit/mL Inj SUBQ SCH ×2 (00:56→08:26)
[2017-01-08] MEDS: Albuterol-Ipratropium 3 mL Inhalation Solution NEB SCH ×3 (01:09→08:35)
--- NOTE | 2017-01-08 01:46 | NUR ---
Positive Blood Culture Lab called to report blood culture positive for gram positive cocci MD italo notified. All vitals stable, pt afebrile, tele SR 70sk, pt appears to be sleeping comfortably between care interventions.
[2017-01-08] MEDS: oxyCODONE-Acetamin 5-325 mg Tablet PO PRN (04:08)
[2017-01-08 05:06] LABS: Mean Corpuscular Hemoglobin 27.9 pg (27.0-35.0); Mean Corpuscular Volume 86.9 fL (81-100)
--- NOTE | 2017-01-08 05:43 | NUR ---
Pain At start of shift pt stated pain at 6/10 in lower back but preferred to wait on additional pain medication after HS meds given. Pt slept very well for most of night and when woken for 4am vitals stated pain was at 7/10, given PRN Percocet which brought pain down to 5/10, pain also located in head w/ congestion. Pt then given Tylenol and is currently sleeping and appears comfortable.
[2017-01-08] MEDS: Insulin LISPRO 300 Unit/3 mL Inj SUBQ SCH (08:00)
[2017-01-08] MEDS: Insulin GLARgine 100 Unit/mL Syringe SUBQ SCH (08:25)
[2017-01-08] MEDS: predniSONE 20 mg Tablet PO SCH (08:26)
[2017-01-08] MEDS: Venlafaxine XR 75 mg ER24 Capsule PO SCH (08:27)
[2017-01-08] MEDS: Pantoprazole 40 mg ER24 Tablet PO SCH (08:27)
[2017-01-08] MEDS: Nystatin 100,000 Unit/Gm 15 Gm Powder TOPICAL SCH (08:27)
--- NOTE | 2017-01-08 10:41 | PCM.DIMED ---
Discharge Instructions Date of Service Jan 08, 2017 Dates of Hospitalization Jan 06, 2017 at 20:58 Discharge Diagnosis Discharge Diagnosis COPD exacerbation Asthma exacerbation RSV positive Diabetes type II Diet Heart Healthy, Diabetic Activity Other (gradually return to normal daily activities) Call your provider Fever or Chills, Shortness of breath, Bleeding, Chest pain, Vomitting, Weakness (unilateral) Patient Instructions Follow-up Provider: David Stephen MD Follow-up with PCP in: 1 week (if an appointment has not already been made please call to make appointment) Aydee Donaldson DO Jan 08, 2017 10:41
[2017-01-08] MEDS ORDERED: BENZ100C8 PO (10:44)
[2017-01-08] MEDS ORDERED: PRED-508 PO (10:44)
--- NOTE | 2017-01-08 10:48 | PCM.DC.MED ---
Discharge Summary Date of Service Jan 08, 2017 Dates of Hospitalization Date of Hospital Admission Jan 06, 2017 at 20:58 Date of Discharge: Jan 08, 2017 Providers: Admitting Physician: Jerrod Jerome MD Primary Care Physician: David Stephen MD Attending Physician: Jerrod Jerome MD Diagnosis at Time of Discharge Diagnosis at Time of Discharge COPD exacerbation Asthma exacerbation RSV positive Diabetes type II Procedures XRay, CTs & MRIs X-RAY CHEST, TWO VIEWS 01/06 IMPRESSION: No acute cardiopulmonary disease. Dictated by: Oscar Vazquez M.D. on 01/06/2017 at 17:56 Approved by: Oscar Vazquez M.D. on 01/06/2017 at 17:57 Brief History Janet Pat is a 56 year old female with Diabetes, COPD, Stroke, and sleep apnea on BiPAP presents to [facility] emergency department with shortness of breath onset just prior to arrival. Patient reporting symptoms have been ongoing for 4 days. Associated symptoms include wheeze, dry cough, chest congestion, chills, nausea, vomiting, and diarrhea. The patient denies fever. She used a double dose of nebulizer at home with no improvement earlier today. Her room mate was coughing last week. She continues to smoke Patient was hospitalized for similar issues in September. He had her flu vaccination last year Case discussed with Dr Huang, patient will be admitted with persistent symptoms despite intervention in the ED. Hospital Course Janet Pat is a 56 year old female with Diabetes, COPD, Stroke, and sleep apnea on BiPAP presents to [facility] emergency department with shortness of breath Patient was admitted to the hospital with a COPD exacerbation and URI symptoms. Patient was found to be RSV positive. Patient seemed to respond well to oxygen therapy, steroids, and supportive care. Azithromycin was not started on this patient as she does have an allergy to this medication. Patient seems to be progressing well and is currently satting at 92% or greater. Patient is to resume the use of her CPAP machine. The patient is being discharged home in stable condition. Ex COPD with acute exacerbation. Present on admission. Chest X ray showed no infiltrates and procalcitonin not elevated. I doubt patient has a bacterial infection and therefore does not need antibiotics. Patient also has history of Asthma and its difficult to say if the patient also has Asthma attack as well. Last September an echo showed no evidence to suggest patient has Heart failure. With the flu season in full swing a viral PCR will be obtained - Prednisone 40 mg daily x 5 days - DuoNeb scheduled - continue Singulair - continue Fluticasone and Dulera -Flu negative - PCR positive for RSV Diabetes Type 2, insulin using with diabetic neuropathy Anticipating some steroid induced hyperglycemia - continue Lantus 60 BID and Lyrica - Lispro medium correction algorithm Obstructive Sleep apnea - On BIPAP for sleep at home. Continue BiPAP at night Asthma - Continue home montelukast Nicotine dependence. ongoing Counseled patient concerning cessation and benefits - Nicotine patch as needed Restless leg syndrome - Continue home Mirapex Hyperlipidemia - Continue home simvastatin - Acetaminophen as needed for mild pain/fever/headache - Bowel regimen as needed - Antiemetic as needed Exam Vital Signs (Last) Date Time Temp Pulse Resp B/P Pulse Ox O2 Delivery O2 Flow Rate FiO2 01/08/17 08:45 80 01/08/17 08:35 18 92 Aerosol Mask 01/08/17 08:11 36.5 113/57 01/08/17 01:09 21 Exam Physical Exam: GEN: Patient was awake, alert, responding appropriately to questions HEENT: PERRLA, EOMI, Neck soft supple, trachea midline, nomocephalic/atraumatic CV: +S1/S2, RRR, no murmurs auscultated Respiratory: Significant wheezing and rhonchi no rales, coarse breath sounds GI: +bowel sounds x4, soft, compressible, non TTP, obese EXT: no c/c/e Neuro: CN II-XII grossly intact Psych: mood and affect were appropriate Test 01/06/17 18:38 01/08/17 04:44 Neutrophils (%) (Auto) 66.8% (40-74) Lymphocytes (%) (Auto) 23.0% (14-46) Monocytes (%) (Auto) 7.7% (4-12) Eosinophils (%) (Auto) 1.9% (0-5) Basophils (%) (Auto) 0.3% (0-3) Magnesium Level 2.0mg/dL (1.6-2.6) Total Bilirubin 0.2mg/dL (0.0-1.2) Aspartate Amino Transf (AST/SGOT) 19U/L (0-50) Alanine Aminotransferase (ALT/SGPT) 18U/L (0-32) Alkaline Phosphatase 119U/L (25-150) Troponin T < 0.010ug/L (0.0-0.011) Pro-B-Type Natriuretic Peptide 30.08pg/mL (0-287) Total Protein 7.5g/dL (6.4-8.4) Albumin 4.1g/dL (3.4-5.0) Procalcitonin 0.05ng/mL (0.00-0.08) Hold Byrd Top Tube Received (Received) White Blood Count 9.1th/mm3 (3.8-10.1) Red Blood Count 4.88mil/mm3 (3.90-5.20) Hemoglobin 13.6g/dL (12.0-15.6) Hematocrit 42.4% (35.0-46.0) Mean Corpuscular Volume 86.9fL (81-100) Mean Corpuscular Hemoglobin 27.9pg (27.0-35.0) Mean Corpuscular Hemoglobin Concent 32.1% (32.0-37.0) Red Cell Distribution Width 14.3% (12.3-15.4) Platelet Count 210bil/L (150-400) Sodium Level 141mEq/L (134-144) Potassium Level 4.0mEq/L (3.5-5.2) Chloride Level 104mEq/L (97-108) Carbon Dioxide Level 25mmol/L (18-29) Blood Urea Nitrogen 20mg/dL (6-24) Creatinine 0.78mg/dL (0.57-1.00) Estimat Glomerular Filtration Rate 109mL/min (>59) Glucose Level 130mg/dL (60-99) Calcium Level 8.8mg/dL (8.5-10.1) Discharge Medications Discharge Medications Aripiprazole (Aripiprazole) 15 Mg Tablet 15 MG PO DAILY (Reported) HydrOXYzine HCl (HydrOXYzine HCl) 10 Mg Tablet 50 MG PO HS (Reported) Insulin Aspart (NovoLOG U100 Insulin Vial) 100 U/Ml U 30-50 UNIT SUBQ TIDAC ( Reported) Insulin Glargine (Lantus U100 Insulin Vial) 100 Unit/Ml Vial 40 SUBQ BID ( Reported) Omeprazole (Omeprazole) 40 Mg Capsule.dr 40 MG PO BID (Reported) Prazosin (Prazosin) 5 Mg Capsule 5 MG PO HS (Reported) Prednisone (Deltasone) 20 Mg Tablet 40 MG PO DAILYWM Prescribed by: MIKE WATTS DO Pregabalin (Lyrica) 200 Mg Capsule 200 MG PO TID (Reported) Simvastatin (Simvastatin) 40 Mg Tablet 40 MG PO HS (Reported) Spironolactone (Spironolactone) 50 Mg Tablet 50 MG PO BID (Reported) Topiramate (Topiramate) 100 Mg Tablet 100 MG PO BID (Reported) Trazodone (Trazodone) 50 Mg Tablet 75 MG PO HS (Reported) Venlafaxine ER (Venlafaxine ER) 75 Mg Tab.er.24 75 MG PO DAILY (Reported) As needed Albuterol Sulfate (Ventolin HFA Inhaler) 200 Puff/18 Gm Inhaler 2 PUFFS INH PRN For Shortness of Breath (Reported) Benzonatate (Benzonatate) 100 Mg Capsule 100 MG PO TID PRN PRN For Cough Prescribed by: MIKE WATTS DO Epinephrine (Epipen 2-Pietro) 0.3 Mg/0.3 Ml Auto.injct 0.3 MG IM PRN For Anaphyllaxis (Reported) Ipratropium/Albuterol Sulfate (Iprat-Albut 0.5-3(2.5) mg/3 mL Inhalant Soln) 3 Ml Ampul.neb 3 ML IH TID-QID PRN PRN For Shortness of Breath (Reported) Nitroglycerin SL (Nitrostat) 0.4 Mg Tab.subl 0.4 MG SL Q5MIN PRN PRN For Chest Pain (Reported) oxyCODONE-Acetaminophen 5-325 mg (oxyCODONE-Acetaminophen 5-325 mg) 1 Each Tablet 1 TAB PO QID PRN PRN For Pain (Reported) Miscellaneous Medications Docusate Sodium (Docusate Sodium) 250 Mg Capsule 500 MG PO (Reported) Followup Plan Discharge Diet: Heart Healthy, Diabetic Discharge Activity: Other (gradually return to normal daily activities) Follow-up Provider: David Stephen MD Follow-up with PCP in: 1 week (if an appointment has not already been made please call to make appointment) copies to: David Stephen MD, Precious L DO Jan 08, 2017 10:48
--- NOTE | 2017-01-08 11:31 | NUR ---
Discharge Pt D/Cd home in stable condition with family. Discharge instructions/Rx/med list and follow up appt reviewed with patient. No questions at this time. TELE and PIV D/Cd intact. Copies of Rx and discharge papers in chart.
== END 2017-01-08 11:47 | disposition home or self-care (01) ==
LOC: SED 17:02 → INTOOBSV 20:58 → PCC 20:58
PROVIDERS: ADMIT Hospitalist; ATTEND Hospitalist
DX: J44.1 Chronic obstructive pulmonary disease with (acute) exacerbation (principal); J45.901 Unspecified asthma with (acute) exacerbation; B97.4 Respiratory syncytial virus as the cause of diseases classified elsewhere; J22 Unspecified acute lower respiratory infection; Z87.891 Personal history of nicotine dependence; E11.9 Type 2 diabetes mellitus without complications; Z79.4 Long term (current) use of insulin; G47.33 Obstructive sleep apnea (adult) (pediatric); Z86.73 Personal history of transient ischemic attack (TIA), and cerebral infarction without residual deficits; Z79.52 Long term (current) use of systemic steroids
CPT/HCPCS: 36415; 71020; 80048; 80053; 82308; 83735; 83880; 84484; 85025; 85027; 87040; 87077; 87186; 87633; 87804; 93005; 94640; 94664; 96374; 96375; 99285; G0378; J1644; J1815; J2405; J2930; J7050; J7613; J7620; Q0177

== ENCOUNTER 2017-01-14 16:02 | Emergency (ER) | payer MEDICARE, MEDICAID ==
[~2017-01-14 16:02] MED LIST changes: +ARIP15TA7 PO; -ARIP20TA10 PO; -ARIP30TA PO; +BENZ100C8 PO; -DOCU240C41 PO; +DOCU250C2 PO; -FLUT16SP NASAL; -FRSM80T PO; +HYDR-3605 PO; -HYDR50TA76 PO; +INSU100C8 SUBQ; -INSU100I18 SQ; -LAMO200T2 PO; -MOME13HF IH; -MONT10TA23 PO; -ONDA-53 PO; -PRAM0.5T3 PO; -PRAZ1CAP2 PO; -PRE10 PO; +PRED-508 PO; -PROC10TA PO; +TOPI-31 PO; -TOPI50TA88 PO; -VENL37.587 PO; +VENL75TA87 PO
[2017-01-14 16:24] VITALS: BP 130/72; PULSE 88; RESP 22; O2SAT 96
[2017-01-14 17:28] LABS: BASOPHILS % (AUTO) 0.2 % (0-3); MONOCYTES % (AUTO) 5.7 % (4-12); Mean Corpuscular Hemoglobin 28.2 pg (27.0-35.0); Mean Corpuscular Volume 84.4 fL (81-100); NEUTROPHILS % (AUTO) 62.6 % (40-74); Platelet Count 236 bil/L (150-400)
--- NOTE | 2017-01-14 17:58 | DRSVH ---
PROCEDURE: X-RAY CHEST ONE VIEW, PORTABLE ([id number]) INDICATIONS: copd TECHNIQUE: One view of the chest was acquired. COMPARISON: [facility], CR, XR CHEST 2VW, 01/06/2017, 17:45. FINDINGS: Surgical changes and devices: Thoracic spine stimulator is unchanged. Lungs and pleura: No pleural effusions or pneumothorax. Lungs are clear. Mediastinum: Mediastinal contours appear normal. Heart size is normal. Bones and chest wall: No suspicious bony lesions. Overlying soft tissues appear unremarkable. IMPRESSION: No acute pulmonary process. Dictated by: Carmen Sanford M.D. on 01/14/2017 at 17:56 Approved by: Carmen Sanford M.D. on 01/14/2017 at 17:56
[2017-01-14 17:59] LABS: TROPONIN T < 0.010 ug/L (0.0-0.011)
--- NOTE | 2017-01-14 18:18 | ED.REPORT ---
HPI-Dyspnea / Wheezing Date of Service Jan 14, 2017 ED Provider: Dulce Maria MontenegroO. A 56 year old female with a medical history including diabetes, COPD, asthma, and sleep apnea on BiPAP presents to the the ED via EMS with worsening shortness of breath and chest pain onset four days ago. The pain is rated 5/10 and exacerbated with deep breathing. Associated symptoms include wheeze, subjective fever, and productive cough. The patient denies hemoptysis. EMS found her with normal vital signs. She was administered 0.4mg Nitro SL and 324mg ASA PO en route with moderate relief. The patient was recently admitted to the hospital for two days on January 06, 2017 with a COPD exacerbation and RSV infection. Nursing Notes Stated Complaint: SOB Chief Complaint: Chest Pain Nursing Notes Reviewed: Yes Allergies: Coded Allergies: Penicillins (Verified Allergy, Severe, Anaphylaxis/SWELLING, 10/12/16) fluoxetine (Verified Allergy, Severe, MOOD ALTERATION, 10/12/16) haloperidol (Verified Allergy, Severe, body jerks, 10/12/16) lithium (Verified Allergy, Severe, SWELLING, 10/12/16) morphine (Verified Allergy, Severe, Hallucinations, 10/12/16) pramipexole (Verified Allergy, Severe, 10/12/16) hypertension propoxyphene (Verified Allergy, Severe, NAUSEA, 10/12/16) sumatriptan (Verified Allergy, Severe, 10/12/16) HIGH BLOOD PRESSURE tyropanic acid (Verified Allergy, Severe, Nausea, 10/12/16) erythromycin base (Verified Allergy, Intermediate, severe abd pain, ) propranolol (Verified Allergy, Intermediate, hypotension, 01/06/17) cephalexin (Verified Allergy, Unknown, 10/12/16) Uncoded Allergies: ASPARAGUS (Allergy, Mild, UNKNOWN, 10/12/16) STRAWBERRIES (Allergy, Unknown, UNKNOWN, 09/22/12) Scheduled Aripiprazole (Aripiprazole) 15 Mg Tablet 15 MG PO DAILY HydrOXYzine HCl (HydrOXYzine HCl) 10 Mg Tablet 50 MG PO HS Insulin Aspart (NovoLOG U100 Insulin Vial) 100 U/Ml U 30-50 UNIT SUBQ TIDAC Insulin Glargine (Lantus U100 Insulin Vial) 100 Unit/Ml Vial 40 SUBQ BID Omeprazole (Omeprazole) 40 Mg Capsule.dr 40 MG PO BID Prazosin (Prazosin) 5 Mg Capsule 5 MG PO HS Prednisone (Deltasone) 20 Mg Tablet 40 MG PO DAILYWM Pregabalin (Lyrica) 200 Mg Capsule 200 MG PO TID Simvastatin (Simvastatin) 40 Mg Tablet 40 MG PO HS Spironolactone (Spironolactone) 50 Mg Tablet 50 MG PO BID Topiramate (Topiramate) 100 Mg Tablet 100 MG PO BID Trazodone (Trazodone) 50 Mg Tablet 75 MG PO HS Venlafaxine ER (Venlafaxine ER) 75 Mg Tab.er.24 75 MG PO DAILY Scheduled PRN Albuterol Sulfate (Ventolin HFA Inhaler) 200 Puff/18 Gm Inhaler 2 PUFFS INH PRN For Shortness of Breath Benzonatate (Benzonatate) 100 Mg Capsule 100 MG PO TID PRN PRN For Cough Epinephrine (Epipen 2-Pietro) 0.3 Mg/0.3 Ml Auto.injct 0.3 MG IM PRN For Anaphyllaxis Ipratropium/Albuterol Sulfate (Iprat-Albut 0.5-3(2.5) mg/3 mL Inhalant Soln) 3 Ml Ampul.neb 3 ML IH TID-QID PRN PRN For Shortness of Breath Nitroglycerin SL (Nitrostat) 0.4 Mg Tab.subl 0.4 MG SL Q5MIN PRN PRN For Chest Pain oxyCODONE-Acetaminophen 5-325 mg (oxyCODONE-Acetaminophen 5-325 mg) 1 Each Tablet 1 TAB PO QID PRN PRN For Pain Miscellaneous Medications Docusate Sodium (Docusate Sodium) 250 Mg Capsule 500 MG PO General Time Seen by MD: 18:17 Chief Complaint Chest pain, Shortness of breath Hx Obtained From: Patient, EMS Arrived By: Ambulance Sudden in Onset?: No Onset Occurred: 4 days ago Symptom Duration: Since onset Location: : Chest left: Chest right Quality: Painful, Pleuritic Severity: Current: Moderate Severity: Maximum: Moderate Associated with: Reports: Cough, Fever (Subjective), Wheeze, Denies: Hemoptysis Exacerbated by: Deep breath Relieved by: Nitro SL Context Related History: Reports: COPD Asthma History: Asthma diagnosed Recent Healthcare: Recent doctor visit, Recent hospitalization Similar Sx Previous: Yes Past Medical History Past Medical History Notes: Past Medical History Fibromyalgia Type 2 diabetes COPD Asthma Restless leg Bipolar disorder Depression CVA Sleep apnea-On BIPAP Arthritis GERD Past Surgical History Right ankle ORIF and hardware removal Exostectomy an Achilles tendon lengthening. Left eye surgery. She has a prosthetic left eye. Arthroscopic knee and shoulder surgery. Family History Mother: CHF, CKD, DM, stroke, breast cancer Father: Cardiovascular disease, CKD, alcoholic Brother: Cardiovascular disease (7 stents), alcoholic Smoking History Former Smoker Social History Alcohol Use: "Social" Drug Use: Denies drug use Other Social History: Good social support, Local resident Ambulatory Status Independent Review of Systems Review of Systems Note: + Productive cough Basic Review of Systems GI: No vomiting Constitutional: Reports: Fever (Subjective) Respiratory: Reports: Pleuritic pain, Shortness of breath, Wheezing, Denies: Hemoptysis Cardiovascular: Reports: Chest pain Complete sys rev & neg: except as marked. GI: Denies: Vomiting Physical Exam Initial Vital Signs Vital Signs (First) Date Time Temp Pulse Resp B/P Pulse Ox O2 Delivery O2 Flow Rate FiO2 01/14/17 16:24 36.8 88 22 130/72 96 Nasal Cannula Initial VS: Reviewed Head / Eyes: Atraumatic, Normocephalic ENT: Conjunctiva normal, No scleral icterus Skin: Warm, Dry, No cyanosis Neurologic: Alert, Oriented, Nonfocal Psychiatric: Mood/affect normal, Behavior normal, Normal thought content General/Constitutional: Awake, Alert Distress / Hydration: Positive: Distress mild Neck: Supple, Full range of motion Respiratory / Chest: Breath sounds = bilat Wheezing / Retractions: Positive: Wheezing expiratory (Diffuse) Cardiovascular: Heart rate NL, Regular rhythm, Heart sounds NL Interpretation & Diagnostics Lab Results Interpretation Result Diagram: 01/14/17 1630 01/14/17 1630 Test 01/14/17 16:30 01/14/17 21:17 White Blood Count 13.3th/mm3 (3.8-10.1) Red Blood Count 5.32mil/mm3 (3.90-5.20) Hemoglobin 15.0g/dL (12.0-15.6) Hematocrit 44.9% (35.0-46.0) Mean Corpuscular Volume 84.4fL (81-100) Mean Corpuscular Hemoglobin 28.2pg (27.0-35.0) Mean Corpuscular Hemoglobin Concent 33.4% (32.0-37.0) Red Cell Distribution Width 13.9% (12.3-15.4) Platelet Count 236bil/L (150-400) Neutrophils (%) (Auto) 62.6% (40-74) Lymphocytes (%) (Auto) 29.3% (14-46) Monocytes (%) (Auto) 5.7% (4-12) Eosinophils (%) (Auto) 2.0% (0-5) Basophils (%) (Auto) 0.2% (0-3) Hold Purple Top Tube Received (Received) D-Dimer < 0.5mg/L (<0.50) Hold Blue Top Tube Received (Received) Sodium Level 138mEq/L (134-144) Potassium Level 4.2mEq/L (3.5-5.2) Chloride Level 100mEq/L (97-108) Carbon Dioxide Level 23mmol/L (18-29) Blood Urea Nitrogen 9mg/dL (6-24) Creatinine 0.86mg/dL (0.57-1.00) Estimat Glomerular Filtration Rate 97mL/min (>59) Glucose Level 148mg/dL (60-99) Calcium Level 9.1mg/dL (8.5-10.1) Magnesium Level 2.0mg/dL (1.6-2.6) Total Bilirubin 0.3mg/dL (0.0-1.2) Aspartate Amino Transf (AST/SGOT) 19U/L (0-50) Alanine Aminotransferase (ALT/SGPT) 21U/L (0-32) Alkaline Phosphatase 111U/L (25-150) Total Protein 7.3g/dL (6.4-8.4) Albumin 4.1g/dL (3.4-5.0) Hold Red Top Tube Received (Received) Hold Jefferson Top Tube Received (Received) Troponin T 0.010ug/L (0.0-0.011) Pulse Oximetry Interpretation Pulse Oximetry Interpretation: On recheck at 22:28 Pulse Oximetry: Pulse Ox normal (97%), On room air ECG Interpretation ECG Interpretation: Sinus rhythm rate [address] segment changes Unchanged from 01/06/17 Time: 17:50 Interpreted by: ED physician X-Ray Chest Interpretation Chest Xray Interpretation: IMPRESSION: No acute pulmonary process. Dictated by: Carmen Sanford M.D. on 01/14/2017 at 17:56 View: Portable, 1 view Interpretation / Wet Read by: Interpret - Radiologist Re-Eval/Medical Decision Med Decision/Clinical Course Ms. Pat did great. Her bronchospasm was aggressively treated and she was discharged with clear lungs. Acute myocardial infarction ruled out based on history, physical examination and serial troponins. EKG is also reassuring. Pulmonary emboli seems very unlikely based on history, physical and diagnostics. Ms. Pat did not feel like she wanted to be admitted to the hospital and I think this is an agreeable plan Her lungs are clear. She looks really good. She will follow-up closely. Re-Evaluation/Progress : Time of Eval: 22:28 )( Re-Eval Resp / Chest: Breath sounds normal Patient Status: Condition improved Re-Evaluation/Progress Note: Patient is much improved after breathing treatment. Discussed with patient x-ray and lab results, diagnosis, and plan for discharge. Follow-up and return to the ER instructions given. Patient agrees with plan for care and all questions were addressed. Counseled Regarding: Diagnosis, Lab results, Need for follow-up, When/why to return to ED Discharge & Departure Shift Change Sign-Out Response to Therapy: Improved Impression: Primary Impression: COPD with acute exacerbation Additional Impressions: Chest pain Chest pain type: chest pain on breathing Qualified Code: R07.1 - Chest pain on breathing Bronchitis Disposition: Home Discharge Condition All VS Reviewed: Yes Condition: Stable Patient Instructions: Acute Bronchitis (ED), Chest Pain (ED) Additional Instructions: Your EKG, heart blood tests, and blood clot test were normal. Your chest x-ray is reassuring. Heart attack, blood clot, and pneumonia seem unlikely. I suspect that you are suffering with bronchitis as well as COPD. Take doxycycline twice daily for 7 days. This is for a lung infection. Take prednisone daily for 3 days. Use your inhalers as instructed. I would like you to call your primary care physician tomorrow morning to set up a follow-up. If tomorrow you have any difficulty breathing or if you develop any new or worsening symptoms come right back to the emergency department. Do not drive tonight as you received sedating medications. Do not take any other sedating medications. It was very nice seeing you again. I think you are going to do very well but do not hesitate to return if any problems or worsening symptoms. Referrals: David Stephen MD (PCP) Scribe Attestation Portions of this note were transcribed by Kristen Jaime. I, Dr. Huang, personally performed the history, physical exam, and medical decision-making; I reviewed and confirmed the accuracy of the information in the transcribed note. Signed by: Tal Steele, 01/14/2017, 23:05 copies to: David Stephen MD, Todd P DO Jan 14, 2017 18:18 KRISTEN JAIME Jan 14, 2017 18:35
[2017-01-14] MEDS ORDERED: MethylprednisoLONE Sodium Succinate 62.5 mg/mL 2 mL Inj IVPUSH ONE (18:50)
[2017-01-14] MEDS ORDERED: Albuterol 2.5 mg/3 mL Inhalation Solution NEB ONE (18:50)
[2017-01-14] MEDS: HYDROmorphone 0.5 mg/0.5 mL iSecure Syringe IVPUSH PRN ×3 (19:28→21:59)
[2017-01-14 19:36] VITALS: PULSE 71; RESP 21; O2SAT 99
[2017-01-14 21:00] VITALS: BP 129/61; RESP 16; O2SAT 98
[2017-01-14 23:07] VITALS: BP 129/61; PULSE 71; RESP 16; O2SAT 98
== END 2017-01-14 22:45 | disposition home or self-care (01) ==
LOC: EDBD 16:02 → SED 16:02 → EDUNIT# 16:02 → SED 22:45
DX: J44.0 Chronic obstructive pulmonary disease with (acute) lower respiratory infection (principal); R07.1 Chest pain on breathing; E11.9 Type 2 diabetes mellitus without complications; Z87.891 Personal history of nicotine dependence; Z79.4 Long term (current) use of insulin; Z79.51 Long term (current) use of inhaled steroids; Z88.0 Allergy status to penicillin; Z88.5 Allergy status to narcotic agent; Z88.8 Allergy status to other drugs, medicaments and biological substances; Z88.1 Allergy status to other antibiotic agents
CPT/HCPCS: 36415; 71010; 80053; 83735; 84484; 85025; 85379; 93005; 94644; 96374; 96375; 96376; 99285; G0463; J1170; J2930; J7613

== ENCOUNTER 2017-03-03 19:45 | Emergency (ER) | payer MEDICARE, MEDICAID ==
[~2017-03-03] VITALS: Ht 175.3 cm; Wt 181.0 kg
[2017-03-03 20:24] VITALS: BP 153/87; PULSE 76; RESP 22; O2SAT 96
--- NOTE | 2017-03-03 21:05 | ED.REPORT ---
HPI-Extremity Problem Lower Date of Service Mar 03, 2017 ED Provider: Radha Edmondson MD 56 year old morbidly obese female with a history of fibromyalgia and type 2 diabetes presents to the ER complaining of worsening right foot pain onset a week ago. Pain is localized in the lateral aspect of the right foot, and is exacerbated with any movement or weightbearing. She denies any known mechanism of injury, fever, chills, loss of function of the right lower extremity. Patient is prescribed oxycodone 5/325 for chronic back pain. Nursing Notes Stated Complaint: RIGHT FOOT PAIN/INJURY Chief Complaint: Extremity Trauma Nursing Notes Reviewed: Yes Allergies: Coded Allergies: Penicillins (Verified Allergy, Severe, Anaphylaxis/SWELLING, 10/12/16) fluoxetine (Verified Allergy, Severe, MOOD ALTERATION, 10/12/16) haloperidol (Verified Allergy, Severe, body jerks, 10/12/16) lithium (Verified Allergy, Severe, SWELLING, 10/12/16) morphine (Verified Allergy, Severe, Hallucinations, 10/12/16) pramipexole (Verified Allergy, Severe, 10/12/16) hypertension propoxyphene (Verified Allergy, Severe, NAUSEA, 10/12/16) sumatriptan (Verified Allergy, Severe, 10/12/16) HIGH BLOOD PRESSURE tyropanic acid (Verified Allergy, Severe, Nausea, 10/12/16) erythromycin base (Verified Allergy, Intermediate, severe abd pain, ) propranolol (Verified Allergy, Intermediate, hypotension, 01/06/17) cephalexin (Verified Allergy, Unknown, 10/12/16) Uncoded Allergies: ASPARAGUS (Allergy, Mild, UNKNOWN, 10/12/16) STRAWBERRIES (Allergy, Unknown, UNKNOWN, 09/22/12) Scheduled Aripiprazole (Aripiprazole) 15 Mg Tablet 15 MG PO DAILY HydrOXYzine HCl (HydrOXYzine HCl) 10 Mg Tablet 50 MG PO HS Insulin Aspart (NovoLOG U100 Insulin Vial) 100 U/Ml U 30-50 UNIT SUBQ TIDAC Insulin Glargine (Lantus U100 Insulin Vial) 100 Unit/Ml Vial 40 SUBQ BID Omeprazole (Omeprazole) 40 Mg Capsule.dr 40 MG PO BID Prazosin (Prazosin) 5 Mg Capsule 5 MG PO HS Prednisone (Deltasone) 20 Mg Tablet 40 MG PO DAILYWM Pregabalin (Lyrica) 200 Mg Capsule 200 MG PO TID Simvastatin (Simvastatin) 40 Mg Tablet 40 MG PO HS Spironolactone (Spironolactone) 50 Mg Tablet 50 MG PO BID Topiramate (Topiramate) 100 Mg Tablet 100 MG PO BID Trazodone (Trazodone) 50 Mg Tablet 75 MG PO HS Venlafaxine ER (Venlafaxine ER) 75 Mg Tab.er.24 75 MG PO DAILY Scheduled PRN Albuterol Sulfate (Ventolin HFA Inhaler) 200 Puff/18 Gm Inhaler 2 PUFFS INH PRN For Shortness of Breath Benzonatate (Benzonatate) 100 Mg Capsule 100 MG PO TID PRN PRN For Cough Epinephrine (Epipen 2-Pietro) 0.3 Mg/0.3 Ml Auto.injct 0.3 MG IM PRN For Anaphyllaxis Ipratropium/Albuterol Sulfate (Iprat-Albut 0.5-3(2.5) mg/3 mL Inhalant Soln) 3 Ml Ampul.neb 3 ML IH TID-QID PRN PRN For Shortness of Breath Nitroglycerin SL (Nitrostat) 0.4 Mg Tab.subl 0.4 MG SL Q5MIN PRN PRN For Chest Pain oxyCODONE-Acetaminophen 5-325 mg (oxyCODONE-Acetaminophen 5-325 mg) 1 Each Tablet 1 TAB PO QID PRN PRN For Pain Miscellaneous Medications Docusate Sodium (Docusate Sodium) 250 Mg Capsule 500 MG PO General Time Seen by MD: 21:04 Chief Complaint Foot injury right Hx Obtained From: Patient Arrived By: Walk-in Onset Occurred: 1 week ago Symptom Duration: Since onset Location: : Foot right Quality: Painful Severity: Current: Mild Severity: Maximum: Moderate Associated with: Reports: Numb extremities, Denies: Fever Pertinent Negative: Pt denies other symptoms Exacerbated by: Range of motion, Movement Pertinent Negative: Relieved by nothing Similar Sx Previous: No Past Medical History Past Medical History Fibromyalgia Type 2 diabetes COPD Asthma Restless leg Bipolar disorder Depression CVA Sleep apnea-On BIPAP Arthritis GERD Past Surgical History Right ankle ORIF and hardware removal Exostectomy an Achilles tendon lengthening. Left eye surgery. She has a prosthetic left eye. Arthroscopic knee and shoulder surgery. Family History Mother: CHF, CKD, DM, stroke, breast cancer Father: Cardiovascular disease, CKD, alcoholic Brother: Cardiovascular disease (7 stents), alcoholic Smoking History Former Smoker Social History Alcohol Use: "Social" Drug Use: Denies drug use Other Social History: Good social support, Local resident Ambulatory Status Independent Review of Systems Constitutional: Denies: Chills, Fever Musculoskeletal: Reports: Extremity pain (Right Foot), Denies: Back pain, Extremity swelling, Joint pain, Lumbar pain, Neck pain, Thoracic pain Neurologic: Reports: Numbness (Right foot) Complete sys rev & neg: except as marked. Physical Exam Initial Vital Signs Vital Signs (First) Date Time Temp Pulse Resp B/P Pulse Ox O2 Delivery O2 Flow Rate FiO2 03/03/17 20:24 36.7 76 22 153/87 96 Room Air Initial VS: Reviewed Head / Eyes: Atraumatic, Normocephalic Neck: Supple, Non-tender, Full range of motion Respiratory: Breath sounds normal, Clear to auscultation, No respiratory distress Cardiovascular: Regular rate & rhythm, Heart sounds normal, Intact distal pulses Upper Extremities: Vascular intact, Neuro intact, No swelling, No tenderness Skin: Warm, Dry, No cyanosis Neurologic: Alert, Oriented, Nonfocal Lower Extremity / Pelvis / MS: Atraumatic, Inspection NL, Full range of motion , No swelling, Non-tender, No erythema, No deformity, Neurologic intact, Vascular intact, No edema Ankle / Foot: Full range of motion, Neurologic intact, Vascular intact 2+ DP PT pulses Tenderness of the Right 3rd/4th metatarsals, dorsal and plantar surfaces. General/Constitutional: Awake, Alert, Well developed Appearance / Presentation: Positive: Obese, morbidly Interpretation & Diagnostics X-Ray Interpretation Xray Interpretation: IMPRESSION: 1. No acute bony abnormality. Dictated by: Bull Saleem M.D. on 03/03/2017 at 21:54 Approved by: Bull Saleem M.D. on 03/03/2017 at 21:55 X-Ray Ordered: Foot right Interpretation / Wet Read by: Interpret - Radiologist Procedures Splint Application - Fx Mgt Time: 22:09 Procedure Performed by: ED physician, Senior Qualitative Researcher Precise Anatomic Location: Right foot Hard sole shoe Definitive Fracture Care: Splint Post-Procedure / Complications: Cap refill normal, Post splint vascular nl, Post splint neuro nl, Condition improved, Tolerated procedure well, Patient stable Splint Post-Application Eval Extremity Condition: Cap refill < 2 sec, Distal sensation intact, Distal motor Intact, No compartment syndrome Re-Eval/Medical Decision Med Decision/Clinical Course 56-year-old female with past medical history of obesity and diabetes center by her primary care physician to rule out foot fracture. Patient has been having right foot pain which is worse with weightbearing. Differential diagnosis includes but is not limited to fracture versus dislocation versus contusion versus plantar fasciitis. Patient's x-ray was negative. She was given a hard soled shoe for comfort and referred back to her primary care physician for further workup. She is aware and amenable to discharge and has been given very strict return precautions. Re-Evaluation/Progress : Time of Eval: 22:09 Re-Evaluation/Progress Note: Discussed imaging results and plan to discharge. Patient is amenable to the plan. Return precautions given. All other questions addressed. Counseled Regarding: Diagnosis, Need for follow-up, When/why to return to ED Discharge & Departure Impression: Primary Impression: Foot pain, right Disposition: Home Discharge Condition All VS Reviewed: Yes Condition: Stable Patient Instructions: Foot Contusion (ED) Additional Instructions: Your evaluation was reassuring. The x-ray of your foot did not show any signs of a fracture. Continue your home medications. Call your primary care provider to arrange a follow-up appointment for next week. Return to the ER if you develop any worsening or concerning symptoms. Referrals: David Stephen MD (PCP) Scribe Attestation Portions of this note were transcribed by Noemi Huitron. I, Dr. Edmondson, personally performed the history, physical exam and medical decision-making; I reviewed and confirmed the accuracy of the information in the transcribed note. Signed by: Tal Maxwell. 03/03/2017 - 22:36 copies to: David Stephen MD, Rebecca A MD Mar 03, 2017 21:05 NOEMI HUITRON Mar 03, 2017 21:25
--- NOTE | 2017-03-03 21:56 | DRSVH ---
PROCEDURE: X-RAY RIGHT FOOT COMPLETE, MINIMUM THREE VIEWS ([id number]) INDICATIONS: pain TECHNIQUE: 3 views of the foot were acquired. COMPARISON: None. FINDINGS: Bones: No fractures or dislocations. No suspicious bony lesions. Soft tissues: No suspicious soft tissue calcifications. IMPRESSION: 1. No acute bony abnormality. Dictated by: Bull Saleem M.D. on 03/03/2017 at 21:54 Approved by: Bull Saleem M.D. on 03/03/2017 at 21:55
[2017-03-03 22:42] VITALS: BP 126/77; PULSE 70; RESP 18; O2SAT 96
== END 2017-03-03 22:41 | disposition home or self-care (01) ==
LOC: SED 19:45
DX: M79.671 Pain in right foot (principal); E11.9 Type 2 diabetes mellitus without complications; J44.9 Chronic obstructive pulmonary disease, unspecified; J45.909 Unspecified asthma, uncomplicated; K21.9 Gastro-esophageal reflux disease without esophagitis; Z88.0 Allergy status to penicillin; Z88.8 Allergy status to other drugs, medicaments and biological substances; Z87.891 Personal history of nicotine dependence; Z86.73 Personal history of transient ischemic attack (TIA), and cerebral infarction without residual deficits; Z88.5 Allergy status to narcotic agent; Z79.4 Long term (current) use of insulin

== ENCOUNTER 2017-03-15 14:50 | Emergency (ER) | payer MEDICARE, MEDICAID ==
[~2017-03-15] VITALS: Ht 175.3 cm; Wt 182.0 kg
[2017-03-15 14:51] VITALS: BP 155/114; PULSE 96; RESP 20; O2SAT 96
--- NOTE | 2017-03-15 15:06 | ED.REPORT ---
HPI-Abd Pain F 40 and Over Date of Service Mar 15, 2017 ED Provider: Domo Ulloa MD 56 year old female with a history of diabetes presents to the ER via EMS complaining of diffuse abdominal pain onset yesterday. Patient was seen at [facility] for similar yesterday, at which time she was diagnosed with UTI, prescribed nitrofurantoin and told to go to the emergency room if pain worsened. Today she developed fever (101F), headache, nausea, vomiting, and diarrhea, which brings her to the department today. She also mentions new onset dizziness and confusion. Nursing Notes Stated Complaint: ABDOMINAL PAIN Chief Complaint: Female Abdominal Pain Nursing Notes Reviewed: Yes Allergies: Coded Allergies: Penicillins (Verified Allergy, Severe, Anaphylaxis/SWELLING, 10/12/16) fluoxetine (Verified Allergy, Severe, MOOD ALTERATION, 10/12/16) haloperidol (Verified Allergy, Severe, body jerks, 10/12/16) lithium (Verified Allergy, Severe, SWELLING, 10/12/16) morphine (Verified Allergy, Severe, Hallucinations, 10/12/16) pramipexole (Verified Allergy, Severe, 10/12/16) hypertension propoxyphene (Verified Allergy, Severe, NAUSEA, 10/12/16) sumatriptan (Verified Allergy, Severe, 10/12/16) HIGH BLOOD PRESSURE tyropanic acid (Verified Allergy, Severe, Nausea, 10/12/16) erythromycin base (Verified Allergy, Intermediate, severe abd pain, ) propranolol (Verified Allergy, Intermediate, hypotension, 01/06/17) acetaminophen (Unverified Allergy, Unknown, 03/15/17) cephalexin (Verified Allergy, Unknown, 10/12/16) Uncoded Allergies: ASPARAGUS (Allergy, Mild, UNKNOWN, 10/12/16) STRAWBERRIES (Allergy, Unknown, UNKNOWN, 09/22/12) Scheduled Aripiprazole (Aripiprazole) 15 Mg Tablet 15 MG PO DAILY Ciprofloxacin (Ciprofloxacin) 500 Mg Tablet 500 MG PO BID HydrOXYzine HCl (HydrOXYzine HCl) 10 Mg Tablet 50 MG PO HS Insulin Aspart (NovoLOG U100 Insulin Vial) 100 U/Ml U 30-50 UNIT SUBQ TIDAC Insulin Glargine (Lantus U100 Insulin Vial) 100 Unit/Ml Vial 40 SUBQ BID Omeprazole (Omeprazole) 40 Mg Capsule.dr 40 MG PO BID Prazosin (Prazosin) 5 Mg Capsule 5 MG PO HS Prednisone (Deltasone) 20 Mg Tablet 40 MG PO DAILYWM Pregabalin (Lyrica) 200 Mg Capsule 200 MG PO TID Simvastatin (Simvastatin) 40 Mg Tablet 40 MG PO HS Spironolactone (Spironolactone) 50 Mg Tablet 50 MG PO BID Topiramate (Topiramate) 100 Mg Tablet 100 MG PO BID Trazodone (Trazodone) 50 Mg Tablet 75 MG PO HS Venlafaxine ER (Venlafaxine ER) 75 Mg Tab.er.24 75 MG PO DAILY Scheduled PRN Albuterol Sulfate (Ventolin HFA Inhaler) 200 Puff/18 Gm Inhaler 2 PUFFS INH PRN For Shortness of Breath Benzonatate (Benzonatate) 100 Mg Capsule 100 MG PO TID PRN PRN For Cough Epinephrine (Epipen 2-Pietro) 0.3 Mg/0.3 Ml Auto.injct 0.3 MG IM PRN For Anaphyllaxis Ipratropium/Albuterol Sulfate (Iprat-Albut 0.5-3(2.5) mg/3 mL Inhalant Soln) 3 Ml Ampul.neb 3 ML IH TID-QID PRN PRN For Shortness of Breath Nitroglycerin SL (Nitrostat) 0.4 Mg Tab.subl 0.4 MG SL Q5MIN PRN PRN For Chest Pain oxyCODONE-Acetaminophen 5-325 mg (oxyCODONE-Acetaminophen 5-325 mg) 1 Each Tablet 1 TAB PO QID PRN PRN For Pain Miscellaneous Medications Docusate Sodium (Docusate Sodium) 250 Mg Capsule 500 MG PO General Time Seen by MD: 15:03 Chief Complaint Abdominal pain Hx Obtained From: Patient Arrived By: Ambulance Sudden in Onset?: No Onset Occurred: Yesterday Symptom Duration: Since onset Location: : Diffuse Quality: Painful Severity: Current: Moderate Severity: Maximum: Moderate Associated with: Reports: Diarrhea, Fever, Nausea, Vomiting Recent Healthcare: Recent doctor visit Similar Sx Previous: Yes Past Medical History Past Medical History Fibromyalgia Type 2 diabetes COPD Asthma Restless leg Bipolar disorder Depression CVA Sleep apnea-On BIPAP Arthritis GERD Past Surgical History Right ankle ORIF and hardware removal Exostectomy an Achilles tendon lengthening. Left eye surgery. She has a prosthetic left eye. Arthroscopic knee and shoulder surgery. Family History Mother: CHF, CKD, DM, stroke, breast cancer Father: Cardiovascular disease, CKD, alcoholic Brother: Cardiovascular disease (7 stents), alcoholic Smoking History Former Smoker Social History Alcohol Use: "Social" Drug Use: Denies drug use Other Social History: Good social support, Local resident Ambulatory Status Independent Review of Systems Constitutional: Reports: Fever Respiratory: Denies: Non-productive cough, Shortness of breath GI: Reports: Abdominal pain, Diarrhea, Nausea, Vomiting, Denies: Constipation, Hematemesis, Hematochezia Female: Denies: Vaginal bleeding - abnl, Vaginal discharge Complete sys rev & neg: except as marked. Neurologic: Reports: Confusion, Dizziness, Headache Physical Exam Vital Signs Vital Signs (First) Date Time Temp Pulse Resp B/P Pulse Ox O2 Delivery O2 Flow Rate FiO2 03/15/17 14:51 38.9 96 20 155/114 96 Room Air Initial VS: Reviewed Head / Eyes: Atraumatic, Normocephalic Neck: Supple, Non-tender, Full range of motion Extremities: Vascular intact, Neuro intact, No swelling, No tenderness Skin: Warm, Dry, No cyanosis Neurologic: Alert, Oriented, Nonfocal General/Constitutional: Awake, Alert, Well developed Appearance / Presentation: Positive: Obese, morbidly Respiratory / Chest: Breath sounds NL, Breath sounds = bilat, No respiratory distress, No rales, No rhonchi, No wheezing, No stridor Cardiovascular: Heart rate NL, Regular rhythm, Heart sounds NL, Peripheral circulation NL Abdomen: Soft, No guarding, No rebound Tenderness/Guarding/Rebound: Positive: Tender diffuse Interpretation & Diagnostics Lab Results Interpretation Result Diagram: 03/15/17 1505 03/15/17 1505 Test 03/15/17 15:05 03/15/17 16:00 White Blood Count 12.3th/mm3 (3.8-10.1) Red Blood Count 4.50mil/mm3 (3.90-5.20) Hemoglobin 12.8g/dL (12.0-15.6) Hematocrit 39.4% (35.0-46.0) Mean Corpuscular Volume 87.6fL (81-100) Mean Corpuscular Hemoglobin 28.4pg (27.0-35.0) Mean Corpuscular Hemoglobin Concent 32.5% (32.0-37.0) Red Cell Distribution Width 14.1% (12.3-15.4) Platelet Count 169bil/L (150-400) Neutrophils (%) (Auto) 78.8% (40-74) Lymphocytes (%) (Auto) 12.7% (14-46) Monocytes (%) (Auto) 7.0% (4-12) Eosinophils (%) (Auto) 1.1% (0-5) Basophils (%) (Auto) 0.2% (0-3) Sodium Level 136mEq/L (134-144) Potassium Level 3.7mEq/L (3.5-5.2) Chloride Level 99mEq/L (97-108) Carbon Dioxide Level 23mmol/L (18-29) Blood Urea Nitrogen 15mg/dL (6-24) Creatinine 1.11mg/dL (0.57-1.00) Estimat Glomerular Filtration Rate 73mL/min (>59) Glucose Level 144mg/dL (60-99) Lactic Acid Level 1.3mmol/L (0.4-2.0) Calcium Level 9.1mg/dL (8.5-10.1) Magnesium Level 1.9mg/dL (1.6-2.6) Total Bilirubin 0.8mg/dL (0.0-1.2) Aspartate Amino Transf (AST/SGOT) 36U/L (0-50) Alanine Aminotransferase (ALT/SGPT) 22U/L (0-32) Alkaline Phosphatase 110U/L (25-150) Total Protein 7.2g/dL (6.4-8.4) Albumin 3.6g/dL (3.4-5.0) Lipase 10U/L (13-60) Hold Byrd Top Tube Received (Received) Urine Color Yellow (YELLOW) Urine Appearance Clear (CLEAR,HAZY) Urine pH 5.5 (5.0-8.0) Urine Specific [place] 1.010 (1.003-1.035) Urine Protein Tracemg/dL (NEG,TRACE) Urine Glucose (UA) Negativemg/dL (NEGATIVE) Urine Ketones Negativemg/dL (NEGATIVE) Urine Occult Blood Small (NEGATIVE) Urine Nitrite Negative (NEGATIVE) Urine Bilirubin Negative (NEGATIVE) Urine Urobilinogen 4.0mg/dL (NORMAL) Urine Leukocyte Esterase Small (NEGATIVE) Urine RBC 0-2/hpf (0-2) Urine WBC 6-10/hpf (0-5) Urine Epithelial Cells Few/hpf (NONE-MOD) Urine Crystals None seen (NONE SEEN) Urine Bacteria Few/hpf (NONE-FEW) Urine Hyaline Casts None/lpf (NONE) Urine Granular Casts None seen (NONE SEEN) Urine Waxy Casts None seen (NONE SEEN) Urine Red Blood Cell Casts None seen (NONE SEEN) Urine White Blood Cell Casts None seen (NONE SEEN) Urine Mucus Present (None Seen) Urine Trichomonas None seen (NONE SEEN) Urine Yeast None (NONE SEEN) Urinalysis Comment None Urine Culture Reflexed Indicated CT Abd / Pelvis Interpretation CT KUB IMPRESSION: 1. No obstructing or nonobstructing radiopaque renal or ureteral calculi. 2. Heterogeneous appearance of the right kidney with corresponding prominence of the right ureter and mild hydronephrosis may be related to a nonvisualized radiolucent stone. However, this appearance is suspicious for a urinary tract infection and clinical correlation to exclude an ascending urinary tract infection is recommended. Other etiologies such as renal infarct, contusion, or tumor infiltration of the kidney cannot be excluded, particularly if the patient is not demonstrating clinical signs/symptoms of a UTI. In the absence of UTI symptoms, please consider obtaining a dedicated contrast enhanced CT urogram. 3. Hepatic steatosis. Dictated by: Smooth Gr M.D. on 03/15/2017 at 15:01 Approved by: Smooth Gr M.D. on 03/15/2017 at 15:11 Study type: Abdominal CT no contrast Interpretation / Wet Read by: Interpret - Radiologist Re-Eval/Medical Decision Med Decision/Clinical Course 56-year-old female history of diabetes presenting with dysuria and nausea. She is being treated for UTI diagnosed at outside facility yesterday with Macrobid. White blood cell count mildly elevated 12,000. Lactate is normal. CT shows possible ascending UTI no clear kidney stones. Patient felt much better after IV fluids. She was given dose of ciprofloxacin IV. She is tolerating by mouth. She has UTI versus developing pyelonephritis is stable at this time and discussed with patient and will try outpatient treatment. Change her antibiotic to ciprofloxacin twice a day. Recommended follow-up with primary doctor tomorrow. Return precautions given regarding new or worsening abdominal pain, fevers, nausea vomiting, any other new or worsening symptoms. Source of Hx: Old records Re-Evaluation/Progress : Time of Eval: 16:35 Re-Evaluation/Progress Note: Discussed lab and imaging results and plan to discharge. Patient is amenable to the plan. Return precautions given. All other questions addressed. Counseled Regarding: Diagnosis, Lab results, Need for follow-up, When/why to return to ED Discharge & Departure Primary Impression: UTI (urinary tract infection) Disposition: Home Discharge Condition All VS Reviewed: Yes Condition: Stable Patient Instructions: Urinary Tract Infection in Men (GEN) Additional Instructions: You have a UTI. Take the ciprofloxacin as prescribed. It is important that you complete the entire course of this antibiotic medication. Tylenol or ibuprofen as directed for pain/fever. Return to the ER if you develop worsening or uncontrollable pain/fever, back pain, pain with urination, blood in your urine, nausea, vomiting, or any other concerning symptoms. Referrals: David Stephen MD (PCP) [place] Attestation Portions of this note were transcribed by Noemi Huitron. I, Dr. Ulloa, personally performed the history, physical exam and medical decision-making; I reviewed and confirmed the accuracy of the information in the transcribed note. Signed by: Tal Maxwell, 03/15/2017 at 16:34 copies to: David Stephen MD, Ben M MD Mar 15, 2017 15:06 NOEMI HUITRON Mar 15, 2017 15:10
[2017-03-15 15:21] LABS: BASOPHILS % (AUTO) 0.2 % (0-3); EOSINOPHILS % (AUTO) 1.1 % (0-5); Mean Corpuscular Hemoglobin 28.4 pg (27.0-35.0); Mean Corpuscular Volume 87.6 fL (81-100); NEUTROPHILS % (AUTO) 78.8 % (40-74); Platelet Count 169 bil/L (150-400)
[2017-03-15] MEDS ORDERED: 0.9% Sodium Chloride 1,000 ML IV ONE (15:24)
[2017-03-15 15:41] LABS: Magnesium 1.9 mg/dL (1.6-2.6)
[2017-03-15] MEDS: Ondansetron 2 mg/mL 2 mL Inj IVPUSH PRN ×2 (16:10→18:04)
--- NOTE | 2017-03-15 16:13 | DRSVH ---
PROCEDURE: CT KUB ([id number]) INDICATIONS: abd pain h/o kidney stones TECHNIQUE: Noncontrast 5 mm thick sections acquired from the diaphragms to the symphysis. 5 mm thick coronal an d sagittal reformats were then performed. For radiation dose reduction, the following was used: aut omated exposure control, adjustment of mA and/or kV according to patient size. COMPARISON: [facility], CT, CT ABD PELVIS W CON, 03/13/2016, 1:39. [facility], CT, ABD/PELVIS W/CON (PNL), 06/17/2010, 21:59. [facility], CT, KUB - CT ([facility] [place]), 05/29, 16:22. FINDINGS: Image quality: Diagnostic Lung bases: Lung bases are clear. Heart size is normal. Urinary system: The right kidney is moderately heterogeneous demonstrating variable degrees of parenc hymal density. There is mild perinephric stranding on the right. Mild hydronephrosis on the right i s noted with prominence of the right ureter. There is no definite right renal calculus, however. Th e left kidney is within normal limits without hydronephrosis or hydroureter. No obstructing or nonob structing renal or ureteral calculi are appreciated. The urinary bladder is prominently distended. No definite bladder calculi are appreciated. The uterus and ovaries are not enlarged. Other solid organs: The liver is moderately hypodense when compared to the spleen, suggesting hepatic steatosis. Areas of fatty sparing are present centrally within the region of the liver and along th e gallbladder fossa. The spleen, adrenals, and pancreas are within normal limits. Bowel: The stomach, duodenum, and remainder of the small bowel loops are nondilated. The appendix is well-visualized and normal. Mild colonic diverticulosis is present without surrounding inflammation to suggest acute diverticulitis. There is no bowel obstruction. No free fluid, loculated fluid col lection or free air is evident. A small fat containing periumbilical hernia similar to prior studies . Nodes and vessels: No retroperitoneal or mesenteric adenopathy by size criteria. Aorta and inferior vena cava are normal in caliber. Pelvic soft tissues: No free pelvic fluid. No inguinal hernias or adenopathy. No loculated fluid c ollections are evident. Bones: No suspicious bony lesions. No vertebral body compression fractures. A spinal stimulator ap paratus is identified with the tip positioned on the dorsal epidural soft tissues of the mid thoracic spine (T8). The leads appear grossly intact. Moderate degenerative changes of the lumbosacral spin e are most pronounced at L5-S1. There are mild degenerative changes of the bilateral hips and sacroi liac joints. IMPRESSION: 1. No obstructing or nonobstructing radiopaque renal or ureteral calculi. 2. Heterogeneous appearance of the right kidney with corresponding prominence of the right ureter an d mild hydronephrosis may be related to a nonvisualized radiolucent stone. However, this appearance is suspicious for a urinary tract infection and clinical correlation to exclude an ascending urinary tract infection is recommended. Other etiologies such as renal infarct, contusion, or tumor infiltra tion of the kidney cannot be excluded, particularly if the patient is not demonstrating clinical sign s/symptoms of a UTI. In the absence of UTI symptoms, please consider obtaining a dedicated contrast enhanced CT urogram. 3. Hepatic steatosis. Dictated by: Smooth Gr M.D. on 03/15/2017 at 15:01 Approved by: Smooth Gr M.D. on 03/15/2017 at 15:11
[2017-03-15] MEDS ORDERED: Ciprofloxacin Inj 400 MG in IV Premix 1 EACH IV ONE (16:20)
[2017-03-15] MEDS ORDERED: CIPR-198 PO (16:29)
[2017-03-15 16:46] LABS: APPEARANCE,URINE CLEAR (CLEAR,HAZY); COLOR,URINE YELLOW (YELLOW); OCCULT BLOOD,URINE SMALL (NEGATIVE); PH,URINE 5.5 (5.0-8.0)
[2017-03-15 18:36] VITALS: BP 124/57; PULSE 93; RESP 16; O2SAT 96
== END 2017-03-15 18:36 | disposition home or self-care (01) ==
LOC: SED 14:50
DX: N39.0 Urinary tract infection, site not specified (principal); J45.909 Unspecified asthma, uncomplicated; K21.9 Gastro-esophageal reflux disease without esophagitis; M79.7 Fibromyalgia; J44.9 Chronic obstructive pulmonary disease, unspecified; E11.9 Type 2 diabetes mellitus without complications; Z86.73 Personal history of transient ischemic attack (TIA), and cerebral infarction without residual deficits; Z79.4 Long term (current) use of insulin; Z87.891 Personal history of nicotine dependence; Z88.0 Allergy status to penicillin; Z88.1 Allergy status to other antibiotic agents; Z88.5 Allergy status to narcotic agent; Z88.8 Allergy status to other drugs, medicaments and biological substances
CPT/HCPCS: 36415; 74176; 80053; 81000; 83605; 83690; 83735; 85025; 87040; 87077; 87086; 87088; 87147; 87186; 96365; 96375; 96376; 99285; J0744; J1885; J2405; J7030

== ENCOUNTER 2017-03-25 09:53 | Emergency (ER) | payer MEDICARE, MEDICAID ==
[~2017-03-25] VITALS: Ht 175.3 cm; Wt 181.8 kg
[~2017-03-25 09:53] MED LIST changes: +CIPR-198 PO
[2017-03-25 10:07] VITALS: BP 132/83; PULSE 72; RESP 20; O2SAT 99
--- NOTE | 2017-03-25 11:35 | ED.REPORT ---
HPI-Psychiatric Illness Date of Service Mar 25, 2017 ED Provider: Beau Mendoza PA-C Cherie is a 56-year-old female with history of bipolar disorder, fibromyalgia, diabetes, angina, asthma, COPD confined to a wheelchair who presents with a chief complaint of suicidal ideation. Patient reports overwhelmed with life, like life is out of control.. "It is like I am stuck in a maze with no way out. I cannot handle it." She reports difficulty concentrating, reduced appetite, visual hallucinations consisting of silhouettes of animals. She reports a history of visual hallucinations similar to these, but not for several years. She presents with a family member who states that she has been "self-destructive" and talking about "taking her wheelchair into the street and seeing what happens." She reports "I cannot guarantee my safety." Also complains of a left-sided headache has been present for days. She was assessed for this at [facility] yesterday, including CT scan. It remains stable. Patient reports that her medications were changed several weeks ago. Hydroxyzine and Abilify were discontinued and she was started on invega. She reports a recent history of UTI, which has been treated with Macrobid. She states that when she had her UTI she became quite confused, thinking she was outside at times when she was not and forgetting how to drive her wheelchair. Nursing Notes Stated Complaint: MENTAL EVAL Chief Complaint: Psychiatric Complaint Nursing Notes Reviewed: Yes Allergies: Coded Allergies: Penicillins (Verified Allergy, Severe, Anaphylaxis/SWELLING, 10/12/16) fluoxetine (Verified Allergy, Severe, MOOD ALTERATION, 10/12/16) haloperidol (Verified Allergy, Severe, body jerks, 10/12/16) lithium (Verified Allergy, Severe, SWELLING, 10/12/16) morphine (Verified Allergy, Severe, Hallucinations, 10/12/16) propoxyphene (Verified Allergy, Severe, NAUSEA, 10/12/16) sumatriptan (Verified Allergy, Severe, 10/12/16) HIGH BLOOD PRESSURE tyropanic acid (Verified Allergy, Severe, Nausea, 10/12/16) erythromycin base (Verified Allergy, Intermediate, severe abd pain, ) propranolol (Verified Allergy, Intermediate, hypotension, 01/06/17) cephalexin (Verified Allergy, Unknown, 10/12/16) Uncoded Allergies: ASPARAGUS (Allergy, Mild, UNKNOWN, 10/12/16) STRAWBERRIES (Allergy, Unknown, UNKNOWN, 09/22/12) Scheduled Aripiprazole (Aripiprazole) 15 Mg Tablet 15 MG PO DAILY Ciprofloxacin (Ciprofloxacin) 500 Mg Tablet 500 MG PO BID HydrOXYzine HCl (HydrOXYzine HCl) 10 Mg Tablet 50 MG PO HS Insulin Aspart (NovoLOG U100 Insulin Vial) 100 U/Ml U 30-50 UNIT SUBQ TIDAC Insulin Glargine (Lantus U100 Insulin Vial) 100 Unit/Ml Vial 40 SUBQ BID Omeprazole (Omeprazole) 40 Mg Capsule.dr 40 MG PO BID Prazosin (Prazosin) 5 Mg Capsule 5 MG PO HS Prednisone (Deltasone) 20 Mg Tablet 40 MG PO DAILYWM Pregabalin (Lyrica) 200 Mg Capsule 200 MG PO TID Simvastatin (Simvastatin) 40 Mg Tablet 40 MG PO HS Spironolactone (Spironolactone) 50 Mg Tablet 50 MG PO BID Topiramate (Topiramate) 100 Mg Tablet 100 MG PO BID Trazodone (Trazodone) 50 Mg Tablet 75 MG PO HS Venlafaxine ER (Venlafaxine ER) 75 Mg Tab.er.24 75 MG PO DAILY Scheduled PRN Albuterol Sulfate (Ventolin HFA Inhaler) 200 Puff/18 Gm Inhaler 2 PUFFS INH PRN For Shortness of Breath Benzonatate (Benzonatate) 100 Mg Capsule 100 MG PO TID PRN PRN For Cough Epinephrine (Epipen 2-Pietro) 0.3 Mg/0.3 Ml Auto.injct 0.3 MG IM PRN For Anaphyllaxis Ipratropium/Albuterol Sulfate (Iprat-Albut 0.5-3(2.5) mg/3 mL Inhalant Soln) 3 Ml Ampul.neb 3 ML IH TID-QID PRN PRN For Shortness of Breath Nitroglycerin SL (Nitrostat) 0.4 Mg Tab.subl 0.4 MG SL Q5MIN PRN PRN For Chest Pain oxyCODONE-Acetaminophen 5-325 mg (oxyCODONE-Acetaminophen 5-325 mg) 1 Each Tablet 1 TAB PO QID PRN PRN For Pain Miscellaneous Medications Docusate Sodium (Docusate Sodium) 250 Mg Capsule 500 MG PO General Time Seen by MD: 11:13 Chief Complaint Suicidal ideation Risk-Psychiatric Illness Suicide Risk Stratification Suicide Risk Factors - Adult: : Previous attemptNo: Alcohol use, Substance abuse RF Statements: Risk factors reviewed Past Medical History Past Medical History Fibromyalgia Type 2 diabetes COPD Asthma Restless leg Bipolar disorder Depression CVA Sleep apnea-On BIPAP Arthritis GERD Past Surgical History Right ankle ORIF and hardware removal Exostectomy an Achilles tendon lengthening. Left eye surgery. She has a prosthetic left eye. Arthroscopic knee and shoulder surgery. Family History Mother: CHF, CKD, DM, stroke, breast cancer Father: Cardiovascular disease, CKD, alcoholic Brother: Cardiovascular disease (7 stents), alcoholic Smoking History Former Smoker Social History Alcohol Use: "Social" Drug Use: Denies drug use Other Social History: Good social support, Local resident Ambulatory Status Independent Review of Systems General: Denies fever, chills, malaise. HEENT: Admits headache, denies congestion, sore throat Respiratory: Admits cough, wheezing. Denies shortness of breath. Cardiovascular: Denies chest pain, palpitations. Gastrointestinal: Denies vomiting, diarrhea, abdominal pain. Genitourinary: Denies frequency, urgency, dysuria, hematuria. Otherwise as noted in HPI. Physical Exam General: Well appearing, well developed, well nourished, no acute distress. Morbidly obese woman sitting in wheelchair, wrapped in blankets. Head: Atraumatic, normocephalic. Eyes: No scleral icterus or injection. No discharge. Vision grossly intact. ENT: Voice clear, hearing grossly intact. Respiratory: Regular rate and rhythm. Breath sounds present, and equal bilaterally. Very mild wheezes in all sanchez. No respiratory distress. No increased work of breathing, speaks in complete sentences. Cardiovascular: Regular rate and rhythm, without murmur, gallop or rub. Trace pedal edema. Gastrointestinal: Obese abdomen mildly tender left upper quadrant without guarding or rebound. Bowel sounds normoactive. Skin: Warm and dry. Back: Negative CVA tenderness Neurological: Grossly nonfocal. Psychological: Alert and oriented. Speech appropriate, linear and logical. Behavior appropriate. Initial Vital Signs Vital Signs (First) Date Time Temp Pulse Resp B/P Pulse Ox O2 Delivery O2 Flow Rate FiO2 03/25/17 10:07 36.2 72 20 132/83 99 Room Air Initial VS: Vital signs normal Interpretation & Diagnostics Lab Results Interpretation Result Diagram: 03/25/17 1151 03/25/17 1151 Test 03/25/17 11:51 03/25/17 12:54 White Blood Count 11.3th/mm3 (3.8-10.1) Red Blood Count 4.86mil/mm3 (3.90-5.20) Hemoglobin 13.8g/dL (12.0-15.6) Hematocrit 42.2% (35.0-46.0) Mean Corpuscular Volume 86.8fL (81-100) Mean Corpuscular Hemoglobin 28.4pg (27.0-35.0) Mean Corpuscular Hemoglobin Concent 32.7% (32.0-37.0) Red Cell Distribution Width 14.3% (12.3-15.4) Platelet Count 300bil/L (150-400) Neutrophils (%) (Auto) 66.0% (40-74) Lymphocytes (%) (Auto) 27.3% (14-46) Monocytes (%) (Auto) 4.6% (4-12) Eosinophils (%) (Auto) 1.3% (0-5) Basophils (%) (Auto) 0.4% (0-3) Sodium Level 138mEq/L (134-144) Potassium Level 4.3mEq/L (3.5-5.2) Chloride Level 100mEq/L (97-108) Carbon Dioxide Level 20mmol/L (18-29) Blood Urea Nitrogen 11mg/dL (6-24) Creatinine 0.85mg/dL (0.57-1.00) Estimat Glomerular Filtration Rate 99mL/min (>59) Glucose Level 240mg/dL (60-99) Calcium Level 9.3mg/dL (8.5-10.1) Total Bilirubin 0.2mg/dL (0.0-1.2) Aspartate Amino Transf (AST/SGOT) 16U/L (0-50) Alanine Aminotransferase (ALT/SGPT) 16U/L (0-32) Alkaline Phosphatase 121U/L (25-150) Total Protein 6.8g/dL (6.4-8.4) Albumin 4.1g/dL (3.4-5.0) Thyroid Stimulating Hormone (TSH) 1.610uIU/mL (0.450-4.500) Hold Byrd Top Tube Received (Received) Hold Urine Received (Received) Re-Eval/Medical Decision Med Decision/Clinical Course 56-year-old female presents chief complaint depression, suicidal ideation, anxiety. Presents with social media developer. Reports feeling overwhelmed, considering role in her wheelchair into traffic and "seeing what happens." Speech appears unpressured and grounded in reality, she appears to be fully alert and oriented. Admits visual hallucinations which she has had before and does not find upsetting. Physical examination reveals an obese woman confined to a wheelchair. Otherwise benign. U tox positive only for oxycodone which she is prescribed. CBC reveals a mild leukocytosis possibly consistent with her recent UTI and blood glucose at 240. Unfortunately there was a very long wait to be seen by social media developer and patient grew impatient. She departed abruptly, but having reassured for nurse that she has no suicidal intentions. We do not believe she is a threat to herself or others or gravely disabled. Discharge & Departure Departure Notes Estella departed prior to being evaluated by the social media developer. Stated that she do longer wanted to wait in emergency room. She promised her nurse that she would be safe and departed abruptly. She did not receive discharge instructions. I do not feel that she is a threat to herself or others or gravely disabled. I believe she is competent to make this decision. Impression: Primary Impression: Anxiety Referrals: David Stephen MD (PCP) EDSupervising Provider for APC: Sonia Das MD copies to: David Stephen MD, Seth PA-C Mar 25, 2017 11:35
[2017-03-25 12:16] LABS: BASOPHILS % (AUTO) 0.4 % (0-3); EOSINOPHILS % (AUTO) 1.3 % (0-5); MONOCYTES % (AUTO) 4.6 % (4-12); Mean Corpuscular Hemoglobin 28.4 pg (27.0-35.0); Mean Corpuscular Volume 86.8 fL (81-100); Platelet Count 300 bil/L (150-400)
[2017-03-25] MEDS ORDERED: hydrOXYzine Pamoate 25 mg Capsule PO ONE (13:50)
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
== END 2017-03-25 18:49 | disposition home or self-care (01) ==
LOC: SED 09:53
DX: F41.9 Anxiety disorder, unspecified (principal); F31.9 Bipolar disorder, unspecified; K21.9 Gastro-esophageal reflux disease without esophagitis; J44.9 Chronic obstructive pulmonary disease, unspecified; J45.909 Unspecified asthma, uncomplicated; E11.9 Type 2 diabetes mellitus without complications; M79.7 Fibromyalgia; Z86.73 Personal history of transient ischemic attack (TIA), and cerebral infarction without residual deficits; Z79.4 Long term (current) use of insulin; Z87.891 Personal history of nicotine dependence; Z88.0 Allergy status to penicillin; Z88.1 Allergy status to other antibiotic agents; Z88.5 Allergy status to narcotic agent; Z88.8 Allergy status to other drugs, medicaments and biological substances
CPT/HCPCS: 36415; 80053; 81002; 82075; 82948; 84443; 85025; 99284; Q0177

== ENCOUNTER 2017-03-28 19:47 | Emergency (ER) | payer MEDICARE, MEDICAID ==
[~2017-03-28] VITALS: Ht 175.3 cm; Wt 181.8 kg
[2017-03-28 20:02] VITALS: BP 147/50; PULSE 87; RESP 18; O2SAT 97
--- NOTE | 2017-03-28 21:37 | ED.REPORT ---
HPI-Psychiatric Illness Date of Service March 28, 2017 ED Provider: Benjamin Macias MD Pt is a 56 y.o. female with a hx of Bipolar disorder, depression, DM, fibromyalgia, CVA, and CONSUELO on bi-pap who presents to the ED c/o suicidal ideation onset 4 days ago. Pt states that she has "lots of plans in her head" and claims that she was taken off of her anxiety medication, hydroxyzine, approximately 2 weeks ago. She states her PCP stopped prescribing her hydroxyzine as they believed it wasn't helping her, the pt states it "obviously was". Pt denies drug and ETOH use. Nursing Notes Stated Complaint: NOT SAFE AT HOME,SENT BY Chief Complaint: Psychiatric Complaint Nursing Notes Reviewed: Yes Allergies: Coded Allergies: Penicillins (Verified Allergy, Severe, Anaphylaxis/SWELLING, 03/28/17) fluoxetine (Verified Allergy, Severe, MOOD ALTERATION, 03/28/17) haloperidol (Verified Allergy, Severe, body jerks, 03/28/17) lithium (Verified Allergy, Severe, SWELLING, 03/28/17) morphine (Verified Allergy, Severe, Hallucinations, 03/28/17) propoxyphene (Verified Allergy, Severe, NAUSEA, 03/28/17) sumatriptan (Verified Allergy, Severe, 03/28/17) HIGH BLOOD PRESSURE tyropanic acid (Verified Allergy, Severe, Nausea, 03/28/17) erythromycin base (Verified Allergy, Intermediate, severe abd pain, 03/28/17 ) propranolol (Verified Allergy, Intermediate, hypotension, 03/28/17) cephalexin (Verified Allergy, Unknown, 03/28/17) Uncoded Allergies: ASPARAGUS (Allergy, Mild, UNKNOWN, 10/12/16) STRAWBERRIES (Allergy, Unknown, UNKNOWN, 09/22/12) Scheduled Aripiprazole (Aripiprazole) 15 Mg Tablet 15 MG PO DAILY Ciprofloxacin (Ciprofloxacin) 500 Mg Tablet 500 MG PO BID HydrOXYzine HCl (HydrOXYzine HCl) 10 Mg Tablet 50 MG PO HS Insulin Aspart (NovoLOG U100 Insulin Vial) 100 U/Ml U 30-50 UNIT SUBQ TIDAC Insulin Glargine (Lantus U100 Insulin Vial) 100 Unit/Ml Vial 40 SUBQ BID Omeprazole (Omeprazole) 40 Mg Capsule.dr 40 MG PO BID Prazosin (Prazosin) 5 Mg Capsule 5 MG PO HS Prednisone (Deltasone) 20 Mg Tablet 40 MG PO DAILYWM Pregabalin (Lyrica) 200 Mg Capsule 200 MG PO TID Simvastatin (Simvastatin) 40 Mg Tablet 40 MG PO HS Spironolactone (Spironolactone) 50 Mg Tablet 50 MG PO BID Topiramate (Topiramate) 100 Mg Tablet 100 MG PO BID Trazodone (Trazodone) 50 Mg Tablet 75 MG PO HS Venlafaxine ER (Venlafaxine ER) 75 Mg Tab.er.24 75 MG PO DAILY Scheduled PRN Albuterol Sulfate (Ventolin HFA Inhaler) 200 Puff/18 Gm Inhaler 2 PUFFS INH PRN For Shortness of Breath Benzonatate (Benzonatate) 100 Mg Capsule 100 MG PO TID PRN PRN For Cough Epinephrine (Epipen 2-Pietro) 0.3 Mg/0.3 Ml Auto.injct 0.3 MG IM PRN For Anaphyllaxis Ipratropium/Albuterol Sulfate (Iprat-Albut 0.5-3(2.5) mg/3 mL Inhalant Soln) 3 Ml Ampul.neb 3 ML IH TID-QID PRN PRN For Shortness of Breath Nitroglycerin SL (Nitrostat) 0.4 Mg Tab.subl 0.4 MG SL Q5MIN PRN PRN For Chest Pain oxyCODONE-Acetaminophen 5-325 mg (oxyCODONE-Acetaminophen 5-325 mg) 1 Each Tablet 1 TAB PO QID PRN PRN For Pain Miscellaneous Medications Docusate Sodium (Docusate Sodium) 250 Mg Capsule 500 MG PO General Time Seen by MD: 21:34 Chief Complaint Suicidal ideation Hx Obtained From: Patient Arrived By: Walk-in Onset Occurred: 4 days ago Symptom Duration: Since onset Severity: Current: No pain currently Severity: Maximum: No pain Risk-Psychiatric Illness Suicide Risk Stratification Suicide Risk Factors - Adult: No: Alcohol use, Substance abuse RF Statements: Risk factors reviewed Past Medical History Past Medical History Fibromyalgia Type 2 diabetes COPD Asthma Restless leg Bipolar disorder Depression CVA Sleep apnea-On BIPAP Arthritis GERD Past Surgical History Right ankle ORIF and hardware removal Exostectomy an Achilles tendon lengthening. Left eye surgery. She has a prosthetic left eye. Arthroscopic knee and shoulder surgery. Family History Mother: CHF, CKD, DM, stroke, breast cancer Father: Cardiovascular disease, CKD, alcoholic Brother: Cardiovascular disease (7 stents), alcoholic Smoking History Current Every Day Smoker (1/2 PPD) Social History Alcohol Use: "Social" Drug Use: Denies drug use Other Social History: Good social support, Local resident Ambulatory Status Independent Review of Systems Psychiatric: Reports: Anxiety, Depression, Suicidal ideation, Denies: Hallucinations, auditory, Hallucinations, visual, Homicidal ideation Complete sys rev & neg: except as marked. Physical Exam Initial Vital Signs Vital Signs (First) Date Time Temp Pulse Resp B/P Pulse Ox O2 Delivery O2 Flow Rate FiO2 03/28/17 20:02 36.2 87 18 147/50 97 Room Air Initial VS: Reviewed Head / Eyes: Atraumatic, Normocephalic, PERRL Respiratory: Breath sounds normal, No respiratory distress Cardiovascular: Regular rate & rhythm, Intact distal pulses Abdomen / GI: No distention Extremities: Vascular intact, Neuro intact Skin: Warm, Dry, No cyanosis General/Constitutional: Awake, Alert, Well appearing, Well developed, Well hydrated, Well nourished, Not toxic appearing Appearance / Presentation: Positive: Obese Neurologic: Oriented X3, Speech NL, No motor deficits Psychiatric: Not homicidal, No hallucinations Abnormal Mood/Affect: Positive: Anxious, Depressed Abnormal Thinking / Perception: Positive: Suicidal, with plan ("lots of plans") Interpretation & Diagnostics Lab Results Interpretation Result Diagram: 03/28/170 03/28/17 2250 Test 03/28/17 22:50 03/29/17 00:57 White Blood Count 13.2th/mm3 (3.8-10.1) Red Blood Count 4.70mil/mm3 (3.90-5.20) Hemoglobin 13.3g/dL (12.0-15.6) Hematocrit 40.5% (35.0-46.0) Mean Corpuscular Volume 86.2fL (81-100) Mean Corpuscular Hemoglobin 28.3pg (27.0-35.0) Mean Corpuscular Hemoglobin Concent 32.8% (32.0-37.0) Red Cell Distribution Width 14.1% (12.3-15.4) Platelet Count 270bil/L (150-400) Neutrophils (%) (Auto) 63.3% (40-74) Lymphocytes (%) (Auto) 29.0% (14-46) Monocytes (%) (Auto) 5.3% (4-12) Eosinophils (%) (Auto) 1.7% (0-5) Basophils (%) (Auto) 0.4% (0-3) Sodium Level 137mEq/L (134-144) Potassium Level 4.3mEq/L (3.5-5.2) Chloride Level 100mEq/L (97-108) Carbon Dioxide Level 23mmol/L (18-29) Blood Urea Nitrogen 14mg/dL (6-24) Creatinine 0.99mg/dL (0.57-1.00) Estimat Glomerular Filtration Rate 83mL/min (>59) Glucose Level 181mg/dL (60-99) Calcium Level 8.9mg/dL (8.5-10.1) Magnesium Level 1.7mg/dL (1.6-2.6) Total Bilirubin 0.2mg/dL (0.0-1.2) Aspartate Amino Transf (AST/SGOT) 15U/L (0-50) Alanine Aminotransferase (ALT/SGPT) 15U/L (0-32) Alkaline Phosphatase 109U/L (25-150) Total Protein 6.7g/dL (6.4-8.4) Albumin 3.7g/dL (3.4-5.0) Thyroid Stimulating Hormone (TSH) 2.070uIU/mL (0.450-4.500) Hold Byrd Top Tube Received (Received) Hold Urine Received (Received) Re-Eval/Medical Decision Med Decision/Clinical Course 86-year-old female with a history of bipolar illness presents with declining functional ability and increasing depression and suicidal ideation. She says she has many plans in her head. She recently stopped her hydroxyzine thinking that it was not helping but then got much worse. She was sent in by her therapist. She was initially evaluated and given hydroxyzine so she could sleep. Her care is now bearing turned over at change of shift for the day doctor to evaluate her for voluntary admission. Source of Hx: Old records Re-Evaluation/Progress : Time of Eval: 05:12 Re-Evaluation/Progress Note: Pt is resting comfortably. Counseled Regarding: Diagnosis, Lab results, Need for follow-up, When/why to return to ED Discharge & Departure Shift Change Sign-Out Patient Care Transferred: Yes (Dr. Ulloa) Discussed Complaint(s): Yes Response to Therapy: Improved Impression: Primary Impression: Acute situational disturbance )( Condition at Discharge: No danger to others, No homicidal ideation Disposition: Home Discharge Condition All VS Reviewed: Yes Condition: Improved Referrals: David Stephen MD (PCP) Care Transferred to: Dr. Ulloa Care Transferred at: 06:00 Scribe Attestation Portions of this note were transcribed by Jen Castro. I, personally performed the history, physical exam and medical decision-making; I reviewed and confirmed the accuracy of the information in the transcribed note. Signed by: Tal Altman, 03/29/17 and 0514. copies to: David Stephen MD, Howard L MD March 28, 2017 21:37 JEN CASTRO March 28, 2017 22:15
[2017-03-28 22:58] LABS: BASOPHILS % (AUTO) 0.4 % (0-3); EOSINOPHILS % (AUTO) 1.7 % (0-5); MONOCYTES % (AUTO) 5.3 % (4-12); Mean Corpuscular Hemoglobin 28.3 pg (27.0-35.0); Mean Corpuscular Volume 86.2 fL (81-100); NEUTROPHILS % (AUTO) 63.3 % (40-74); Platelet Count 270 bil/L (150-400)
[2017-03-28 23:31] LABS: Magnesium 1.7 mg/dL (1.6-2.6)
[2017-03-29 03:01] VITALS: BP 129/81; PULSE 74; RESP 22; O2SAT 97
[2017-03-29 08:03] VITALS: PULSE 68; RESP 14; O2SAT 97
[2017-03-29 08:15] VITALS: BP 132/57; PULSE 66; RESP 14; O2SAT 96
[2017-03-29 10:27] LABS: APPEARANCE,URINE CLEAR (CLEAR,HAZY); COLOR,URINE YELLOW (YELLOW); OCCULT BLOOD,URINE NEGATIVE (NEGATIVE); UROBILINOGEN,URINE NORMAL (NORMAL)
[2017-03-29] MEDS ORDERED: HYDR50TA76 PO (10:41)
[2017-03-29 11:14] VITALS: BP 145/78; PULSE 80; RESP 18; O2SAT 97
== END 2017-03-29 11:17 | disposition home or self-care (01) ==
LOC: SED 19:47
DX: F43.0 Acute stress reaction (principal); E11.9 Type 2 diabetes mellitus without complications; K21.9 Gastro-esophageal reflux disease without esophagitis; F31.9 Bipolar disorder, unspecified; F17.200 Nicotine dependence, unspecified, uncomplicated; Z79.4 Long term (current) use of insulin; Z79.899 Other long term (current) drug therapy; Z86.73 Personal history of transient ischemic attack (TIA), and cerebral infarction without residual deficits; Z88.0 Allergy status to penicillin; Z88.1 Allergy status to other antibiotic agents; Z88.8 Allergy status to other drugs, medicaments and biological substances; Z91.018 Allergy to other foods
CPT/HCPCS: 36415; 80053; 81000; 81002; 82075; 82948; 83735; 84443; 85025; 87086; 87088; 99284; Q0177

== ENCOUNTER 2017-04-08 17:17 | Inpatient (IN) | payer MEDICARE, MEDICAID ==
[~2017-04-08] VITALS: Ht 175.3 cm; Wt 176.6 kg
[~2017-04-08 17:17] MED LIST changes: +HYDR50TA76 PO
--- NOTE | 2017-04-08 19:21 | ED.REPORT ---
HPI-Abd Pain F 40 and Over Date of Service April 08, 2017 ED Provider: Brendan Huang DO A 56 year old female with a medical history including DM, COPD, asthma, CVA, GERD, and fibromyalgia presents to the ED from Urgent Care reporting LLQ abdominal pain onset this morning. The pain is exacerbated with movement. The patient also reports mild nausea. She denies vomiting, diarrhea, fever, or other symptoms. Nursing Notes Stated Complaint: ABDOMINAL PAIN Nursing Notes Reviewed: Yes Allergies: Coded Allergies: Penicillins (Verified Allergy, Severe, Anaphylaxis/SWELLING, 03/28/17) fluoxetine (Verified Allergy, Severe, MOOD ALTERATION, 03/28/17) haloperidol (Verified Allergy, Severe, body jerks, 03/28/17) lithium (Verified Allergy, Severe, SWELLING, 03/28/17) morphine (Verified Allergy, Severe, Hallucinations, 03/28/17) propoxyphene (Verified Allergy, Severe, NAUSEA, 03/28/17) sumatriptan (Verified Allergy, Severe, 03/28/17) HIGH BLOOD PRESSURE tyropanic acid (Verified Allergy, Severe, Nausea, 03/28/17) erythromycin base (Verified Allergy, Intermediate, severe abd pain, 03/28/17 ) propranolol (Verified Allergy, Intermediate, hypotension, 03/28/17) cephalexin (Verified Allergy, Unknown, 03/28/17) Uncoded Allergies: ASPARAGUS (Allergy, Mild, UNKNOWN, 10/12/16) STRAWBERRIES (Allergy, Unknown, UNKNOWN, 09/22/12) Scheduled Aripiprazole (Aripiprazole) 15 Mg Tablet 15 MG PO DAILY Ciprofloxacin (Ciprofloxacin) 500 Mg Tablet 500 MG PO BID HydrOXYzine HCl (HydrOXYzine HCl) 10 Mg Tablet 50 MG PO HS Insulin Aspart (NovoLOG U100 Insulin Vial) 100 U/Ml U 30-50 UNIT SUBQ TIDAC Insulin Glargine (Lantus U100 Insulin Vial) 100 Unit/Ml Vial 40 SUBQ BID Omeprazole (Omeprazole) 40 Mg Capsule.dr 40 MG PO BID Prazosin (Prazosin) 5 Mg Capsule 5 MG PO HS Prednisone (Deltasone) 20 Mg Tablet 40 MG PO DAILYWM Pregabalin (Lyrica) 200 Mg Capsule 200 MG PO TID Simvastatin (Simvastatin) 40 Mg Tablet 40 MG PO HS Spironolactone (Spironolactone) 50 Mg Tablet 50 MG PO BID Topiramate (Topiramate) 100 Mg Tablet 100 MG PO BID Trazodone (Trazodone) 50 Mg Tablet 75 MG PO HS Venlafaxine ER (Venlafaxine ER) 75 Mg Tab.er.24 75 MG PO DAILY Scheduled PRN Albuterol Sulfate (Ventolin HFA Inhaler) 200 Puff/18 Gm Inhaler 2 PUFFS INH PRN For Shortness of Breath Benzonatate (Benzonatate) 100 Mg Capsule 100 MG PO TID PRN PRN For Cough Epinephrine (Epipen 2-Pietro) 0.3 Mg/0.3 Ml Auto.injct 0.3 MG IM PRN For Anaphyllaxis Hydroxyzine HCl (HydrOXYzine Hcl) 50 Mg Tablet 50 MG PO HS PRN PRN For Itching Ipratropium/Albuterol Sulfate (Iprat-Albut 0.5-3(2.5) mg/3 mL Inhalant Soln) 3 Ml Ampul.neb 3 ML IH TID-QID PRN PRN For Shortness of Breath Nitroglycerin SL (Nitrostat) 0.4 Mg Tab.subl 0.4 MG SL Q5MIN PRN PRN For Chest Pain oxyCODONE-Acetaminophen 5-325 mg (oxyCODONE-Acetaminophen 5-325 mg) 1 Each Tablet 1 TAB PO QID PRN PRN For Pain Miscellaneous Medications Docusate Sodium (Docusate Sodium) 250 Mg Capsule 500 MG PO General Time Seen by MD: 19:13 Chief Complaint Abdominal pain Hx Obtained From: Patient Arrived By: Walk-in Sudden in Onset?: No Onset Occurred: 5 - 8 hours ago Symptom Duration: Since onset Location: : LLQ Quality: Painful Severity: Current: Moderate Severity: Maximum: Moderate Exacerbated by: Movement Pertinent Negative: Relieved by nothing Context Related History: Reports: GERD Recent Healthcare: Recent doctor visit Past Medical History Past Medical History Fibromyalgia Type 2 diabetes COPD Asthma Restless leg Bipolar disorder Depression CVA Sleep apnea-On BIPAP Arthritis GERD Chronic back pain Past Surgical History Right ankle ORIF and hardware removal Exostectomy and Achilles tendon lengthening. Left eye surgery. She has a prosthetic left eye. Arthroscopic knee and shoulder surgery. Family History Mother: CHF, CKD, DM, stroke, breast cancer Father: Cardiovascular disease, CKD, alcoholic Brother: Cardiovascular disease (7 stents), alcoholic Smoking History Current Every Day Smoker Social History Alcohol Use: "Social" Drug Use: Denies drug use Other Social History: Good social support, Local resident Ambulatory Status Independent Review of Systems Constitutional: Denies: Fever Respiratory: Denies: Non-productive cough, Shortness of breath GI: Reports: Abdominal pain (LLQ), Nausea, Denies: Diarrhea, Vomiting Complete sys rev & neg: except as marked. Physical Exam Vital Signs SEE PAPER CHART Initial VS: Reviewed Head / Eyes: Atraumatic, Normocephalic ENT: Conjunctiva normal, No scleral icterus Neck: Supple, Full range of motion Skin: Warm, Dry, No cyanosis Neurologic: Alert, Oriented, Nonfocal Psychiatric: Mood/affect normal, Behavior normal, Normal thought content General/Constitutional: Awake, Alert Distress / Hydration: Positive: Distress moderate (Due to pain) Respiratory / Chest: Breath sounds NL, Breath sounds = bilat, No respiratory distress Cardiovascular: Heart rate NL, Regular rhythm, Heart sounds NL Abdomen: Soft Tenderness/Guarding/Rebound: Positive: Tender LLQ... Interpretation & Diagnostics URINE DIPSTICK: Bedside Urine Specific [place] * 1.000 Bedside Urine pH * 6 Bedside Urine Leukocyte Esterase * Negative Bedside Urine Nitrite * Negative Bedside Urine Protein * Negative Bedside Urine Glucose * 250mg/dl Bedside Urine Ketones * Negative Bedside Urine Urobilinogen * Normal Bedside Urine Bilirubin * Negative Bedside Urine Occult Blood * Negative Urine to Lab * Yes Lab Results Interpretation Result Diagram: 04/08/17 1755 04/08/17 1755 Test 04/08/17 17:55 04/08/17 18:00 White Blood Count 13.0th/mm3 (3.8-10.1) Red Blood Count 4.91mil/mm3 (3.90-5.20) Hemoglobin 14.3g/dL (12.0-15.6) Hematocrit 41.6% (35.0-46.0) Mean Corpuscular Volume 85fL (81-100) Mean Corpuscular Hemoglobin 29.1pg (27.0-35.0) Mean Corpuscular Hemoglobin Concent 34.4% (32.0-37.0) Red Cell Distribution Width 14.6% (12.3-15.4) Platelet Count 232bil/L (150-400) Neutrophils (%) (Auto) 69% (40-74) Lymphocytes (%) (Auto) 22% (14-46) Monocytes (%) (Auto) 7% (4-12) Eosinophils (%) (Auto) 2% (0-5) Basophils (%) (Auto) 0% (0-3) Urine Color Yellow (YELLOW) Urine Appearance Clear (CLEAR,HAZY) Urine pH 6.5 (5.0-8.0) Urine Specific [place] 1.013 (1.003-1.035) Urine Protein Negativemg/dL (NEG,TRACE) Urine Glucose (UA) 250mg/dL (NEGATIVE) Urine Ketones Negativemg/dL (NEGATIVE) Urine Occult Blood Negative (NEGATIVE) Urine Nitrite Negative (NEGATIVE) Urine Bilirubin Negative (NEGATIVE) Urine Urobilinogen Normalmg/dL (NORMAL) Urine Leukocyte Esterase Negative (NEGATIVE) Urine RBC 0-2/hpf (0-2) Urine WBC 0-5/hpf (0-5) Urine Epithelial Cells Moderate/hpf (NONE-MOD) Urine Crystals None seen (NONE SEEN) Urine Bacteria None/hpf (NONE-FEW) Urine Hyaline Casts None/lpf (NONE) Urine Granular Casts None seen (NONE SEEN) Urine Waxy Casts None seen (NONE SEEN) Urine Red Blood Cell Casts None seen (NONE SEEN) Urine White Blood Cell Casts None seen (NONE SEEN) Urine Mucus None seen (None Seen) Urine Trichomonas None seen (NONE SEEN) Urine Yeast None (NONE SEEN) Urine Culture Reflexed Not indicated Sodium Level 134mEq/L (134-144) Potassium Level 4.0mEq/L (3.5-5.2) Chloride Level 93mEq/L (97-108) Carbon Dioxide Level 25mmol/L (18-29) Blood Urea Nitrogen 15mg/dL (6-24) Creatinine 0.85mg/dL (0.57-1.00) Estimat Glomerular Filtration Rate 99mL/min (>59) Glucose Level 239mg/dL (60-99) Calcium Level 9.4mg/dL (8.5-10.1) Total Bilirubin 0.4mg/dL (0.0-1.2) Aspartate Amino Transf (AST/SGOT) 22U/L (0-50) Alanine Aminotransferase (ALT/SGPT) 20U/L (0-32) Alkaline Phosphatase 110U/L (25-150) Total Protein 7.6g/dL (6.4-8.4) Albumin 4.0g/dL (3.4-5.0) Lipase 20U/L (13-60) Lactic Acid Level 1.9mmol/L (0.4-2.0) CT Abd / Pelvis Interpretation IMPRESSION: 1. Diverticulitis of the distal descending colon without evidence of abscess or macroscopic free air. 2. Stable small left adrenal adenoma. 3. Hepatic steatosis. Dictated by: Bull Saleem M.D. on 04/08/2017 at 19:48 Study type: Abdominal CT IV contrast Interpretation / Wet Read by: Interpret - Radiologist Re-Eval/Medical Decision Med Decision/Clinical Course Tender abdomen with leukocytosis and acute diverticulitis. She is a poor surgical candidate so we will be aggressive in treating her with IV antibiotics and hospital admission. Re-Evaluation/Progress : Time of Eval: 20:05 Patient Status: Condition improved Re-Evaluation/Progress Note: Discussed with patient CT and lab results, diagnosis, and plan for admit. Patient agrees with plan for care and all questions were addressed. Consultation : Referral / Consult Name: Eden Mcleod DO Consulted With: Hospitalist Call Returned at: 20:48 Conveyor Installer: Agrees with eval, Agrees with plan, Accepts admit Counseled Regarding: Diagnosis, Lab results, Need for admission Discharge & Departure Primary Impression: Diverticulitis Diverticulitis site: large intestine Diverticulitis bleeding: without bleeding Diverticulitis complication: without perforation or abscess Qualified Code: K57.32 - Diverticulitis of large intestine without perforation or abscess without bleeding Disposition: ADMITTED TO HOSPITAL Discharge Condition All VS Reviewed: Yes Condition: Improved Referrals: David Stephen MD (PCP) [place] Attestation Portions of this note were transcribed by Kristen Jaime. I, Dr. Huang, personally performed the history, physical exam, and medical decision-making; I reviewed and confirmed the accuracy of the information in the transcribed note. Signed by: Tal Steele, 04/08/2017, 21:47 copies to: David Stephen MD, Todd P DO April 08, 2017 19:21 KRISTEN JAIME April 08, 2017 19:33
[2017-04-08] MEDS ORDERED: Ondansetron 2 mg/mL 2 mL Inj ONE (19:31)
[2017-04-08] MEDS ORDERED: HYDROmorphone 0.5 mg/0.5 mL iSecure Syringe ONE ×3 (19:31→21:15)
[2017-04-08 19:37] LABS: BASOPHILS % (AUTO) 0 % (0-3); EOSINOPHILS % (AUTO) 2 % (0-5); MONOCYTES % (AUTO) 7 % (4-12); Mean Corpuscular Hemoglobin 29.1 pg (27.0-35.0); Mean Corpuscular Volume 85 fL (81-100); NEUTROPHILS % (AUTO) 69 % (40-74); Platelet Count 232 bil/L (150-400)
[2017-04-08 19:45] LABS: APPEARANCE,URINE CLEAR (CLEAR,HAZY); COLOR,URINE YELLOW (YELLOW); OCCULT BLOOD,URINE NEGATIVE (NEGATIVE); PH,URINE 6.5 (5.0-8.0); UROBILINOGEN,URINE NORMAL (NORMAL)
[2017-04-08] MEDS ORDERED: levoFLOXacin Inj 750 MG in IV Premix 1 EACH IV ONE (20:00)
[2017-04-08] MEDS ORDERED: metroNIDAZOLE Inj 500 MG in IV Premix 1 EACH IV ONE (20:00)
[2017-04-08] MEDS ORDERED: Polyethylene Glycol (PEG) 17 Gm Powder PO PRN (21:55)
[2017-04-08] MEDS ORDERED: Alum-Mag Hydrox-Simeth 30 mL Suspension PO PRN (21:55)
[2017-04-08 22:21] VITALS: BP 127/64; PULSE 52; RESP 18; O2SAT 95
--- NOTE | 2017-04-08 22:55 | PCM.HPMED ---
Subjective Date of Service April 08, 2017 Primary Provider: Admitting Physician: Eden Mcleod DO Primary Care Physician: David Stephen MD Attending Physician: Eden Mcleod DO Admit Status: From the Emergency Department Chief Complaint: abdominal pain History of Present Illness: Janet Pat is a 56 year old female with Diabetes, COPD, Stroke, and sleep apnea on BiPAP admitted with abdominal pain and imaging consistent with diverticulitis. The morning of 04/08 patient began having abdominal pain which increased throughout the morning into the afternoon at which time she rated it as dull 8/ 10 abdominal pain in the LLQ radiating to her umbilicus and left upper quadrant. Abdominal pain was associated with nausea but no emesis, lightheadedness, dizziness and some dyspnea which she attributes to increased pain. She denies changes in bowel movements, melena, hematochezia, chest pain, chest tightness. Her pain is different from previous abdominal pain and she denies any history of diverticulitis in the past. On presentation T 37.2, HR 52, RR 18, BP 127/64, 95% on RA. WBC elevated at 13 , glucose was elevated at 239. CT scan as per ED report with impression of diverticulitis of the distal descending colon without evidence of abscess or macroscopic free air. Review of Systems: complete review of systems obtained. positive as per hpi otherwise negative Allergies Coded Allergies: Penicillins (Verified Allergy, Severe, Anaphylaxis/SWELLING, 03/28/17) fluoxetine (Verified Allergy, Severe, MOOD ALTERATION, 03/28/17) haloperidol (Verified Allergy, Severe, body jerks, 03/28/17) lithium (Verified Allergy, Severe, SWELLING, 03/28/17) morphine (Verified Allergy, Severe, Hallucinations, 03/28/17) propoxyphene (Verified Allergy, Severe, NAUSEA, 03/28/17) sumatriptan (Verified Allergy, Severe, 03/28/17) HIGH BLOOD PRESSURE tyropanic acid (Verified Allergy, Severe, Nausea, 03/28/17) erythromycin base (Verified Allergy, Intermediate, severe abd pain, 03/28/17 ) propranolol (Verified Allergy, Intermediate, hypotension, 03/28/17) cephalexin (Verified Allergy, Unknown, 03/28/17) Uncoded Allergies: ASPARAGUS (Allergy, Mild, UNKNOWN, 10/12/16) STRAWBERRIES (Allergy, Unknown, UNKNOWN, 09/22/12) Home Medications medication list from discharge summary on 01/08/2017, med rec pending Discharge Medications Aripiprazole (Aripiprazole) 15 Mg Tablet 15 MG PO DAILY (Reported) HydrOXYzine HCl (HydrOXYzine HCl) 10 Mg Tablet 50 MG PO HS (Reported) Insulin Aspart (NovoLOG U100 Insulin Vial) 100 U/Ml U 30-50 UNIT SUBQ TIDAC ( Reported) Insulin Glargine (Lantus U100 Insulin Vial) 100 Unit/Ml Vial 40 SUBQ BID ( Reported) Omeprazole (Omeprazole) 40 Mg Capsule.dr 40 MG PO BID (Reported) Prazosin (Prazosin) 5 Mg Capsule 5 MG PO HS (Reported) Prednisone (Deltasone) 20 Mg Tablet 40 MG PO DAILYWM Prescribed by: MIKE WATTS DO Pregabalin (Lyrica) 200 Mg Capsule 200 MG PO TID (Reported) Simvastatin (Simvastatin) 40 Mg Tablet 40 MG PO HS (Reported) Spironolactone (Spironolactone) 50 Mg Tablet 50 MG PO BID (Reported) Topiramate (Topiramate) 100 Mg Tablet 100 MG PO BID (Reported) Trazodone (Trazodone) 50 Mg Tablet 75 MG PO HS (Reported) Venlafaxine ER (Venlafaxine ER) 75 Mg Tab.er.24 75 MG PO DAILY (Reported) As needed Albuterol Sulfate (Ventolin HFA Inhaler) 200 Puff/18 Gm Inhaler 2 PUFFS INH PRN For Shortness of Breath (Reported) Benzonatate (Benzonatate) 100 Mg Capsule 100 MG PO TID PRN PRN For Cough Prescribed by: MIKE WATTS DO Epinephrine (Epipen 2-Pietro) 0.3 Mg/0.3 Ml Auto.injct 0.3 MG IM PRN For Anaphyllaxis (Reported) Ipratropium/Albuterol Sulfate (Iprat-Albut 0.5-3(2.5) mg/3 mL Inhalant Soln) 3 Ml Ampul.neb 3 ML IH TID-QID PRN PRN For Shortness of Breath (Reported) Nitroglycerin SL (Nitrostat) 0.4 Mg Tab.subl 0.4 MG SL Q5MIN PRN PRN For Chest Pain (Reported) oxyCODONE-Acetaminophen 5-325 mg (oxyCODONE-Acetaminophen 5-325 mg) 1 Each Tablet 1 TAB PO QID PRN PRN For Pain (Reported) Miscellaneous Medications Docusate Sodium (Docusate Sodium) 250 Mg Capsule 500 MG PO (Reported) PMH Fibromyalgia Type 2 diabetes COPD Asthma Restless leg Bipolar disorder Depression CVA Sleep apnea-On BIPAP Arthritis GERD Chronic back pain Surgical History Right ankle ORIF and hardware removal Exostectomy and Achilles tendon lengthening. Left eye surgery. She has a prosthetic left eye. Arthroscopic knee and shoulder surgery. Family History Mother: CHF, CKD, DM, stroke, breast cancer Father: Cardiovascular disease, CKD, alcoholic Brother: Cardiovascular disease (7 stents), alcoholic Social History Hx Alcohol Use: Yes ("occasionally") Hx Substance Use: No Hx Tobacco Use: Yes (10 cigarettes/day) Smoking Status: Current Every Day Smoker Exam Vital Signs Vital Sign - Last Date Time Temp Pulse Resp B/P Pulse Ox O2 Delivery O2 Flow Rate FiO2 04/08/17 22:21 37.2 52 18 127/64 95 Room Air Exam General: Alert, Oriented X3, Cooperative, No acute Distress. Talking full sentences with bipap on Eyes: PERRLA, Scleral Anicteric Mouth: Mouth Normal, Mucous Membranes Moist/[place] Neck: Supple, no Thyromegaly, trachea central. Chest & Lungs: CTA bilateral with no rhonchi wheezes or rales (anterior) Cardiovascular: Normal S1, Normal S2, No Murmurs/Rubs/Gallops, Regular Rate/ Rhythm, (unable to assess JVD, trace peripheral edema) Pulses: Radial (present and equal), Dorsalis Pedi (present and equal) Abdomen: Soft, diffusely tender with focal point in the llq, no rebound tenderness, obese, Normoactive bowel tones. Musculoskeletal: Unremarkable. Normal range of motion, no swollen or erythematous joints Extremities: No edema, no cyanosis, no clubbing. Skin: No rashes. Warm and dry, no erythematous areas Neurological: Grossly neurologically intact, Normal Speech, Sensation Intact Lymphatic: Lymph nodes Cervical and Axillary not palpable. Lab and Diagnostics Result Diagram: 04/08/[id number] X-Rays, CTs and MRIs CT Abd / Pelvis Interpretation - per ED documentation IMPRESSION: 1. Diverticulitis of the distal descending colon without evidence of abscess or macroscopic free air. 2. Stable small left adrenal adenoma. 3. Hepatic steatosis. Dictated by: Bull Saleem M.D. on 04/08/2017 at 19:48 Study type: Abdominal CT IV contrast Interpretation / Wet Read by: Interpret - Radiologist Assessment & Plan Janet Pat is a 56 year old female with Diabetes, COPD, Stroke, and sleep apnea on BiPAP admitted with abdominal pain and imaging consistent with diverticulitis. Sepsis, acute POA -T38.8, HR >90, WBC >12 documented in ED, EMR system down on patient presentation so not recorded -source intraabdominal, diverticulitis -treatment as below Diverticulitis, acute, POA -NPO following admission until proven stable without need for surgical intervention -mIVF, will advance diet in am with clinical improvement -levofloxacin / metronidazole given abx allergies -low threshold to complete additional CT to assess for perforation with clinical decline Bipolar / depression -continue home medications -psych consult may be needed as patient has been self harming since prior to admission -she is not suicidal but may need adjustments on psychiatric medications COPD. Present on admission. -continue home inhalers Diabetes Type 2, insulin using with diabetic neuropathy - continue Lantus 20 BID (half dose while NPO) and Lyrica - Lispro medium correction algorithm Obstructive Sleep apnea - On BIPAP for sleep at home. Continue BiPAP at night Asthma - Continue home montelukast Nicotine dependence. ongoing Counseled patient concerning cessation and benefits, she is ready to quit - Nicotine patch as needed Restless leg syndrome - Continue home Mirapex Hyperlipidemia - Continue home simvastatin - Acetaminophen as needed for mild pain/fever/headache - Bowel regimen as needed when taking PO - Antiemetic as needed Patient admitted under inpatient status with expected length of stay > 2 midnights for severity of present symptoms, complexities of treatment plan and risk for adverse event . Resuscitation Status: CPR: Attempt Resuscitation Pain Evaluation: Adequate Pain Control VTE Prophylaxis: Sub-Q Heparin (Unfractionated) Resuscitation Status: CPR: Attempt Resuscitation Eden Mcleod DO April 08, 2017 22:55
[2017-04-08] MEDS: HYDROmorphone 0.5 mg/0.5 mL iSecure Syringe IVPUSH PRN (23:15)
[2017-04-09] MEDS ORDERED: HYDR50TA76 PO (00:21)
[2017-04-09] MEDS ORDERED: PALI3TAB5 PO (00:21)
[2017-04-09] MEDS ORDERED: MONT10TA23 PO (00:21)
[2017-04-09] MEDS ORDERED: TIZA2TAB3 PO (00:21)
[2017-04-09] MEDS ORDERED: FLUT1BLS IH (00:21)
[2017-04-09] MEDS ORDERED: TOPI50TA88 PO (00:21)
[2017-04-09] MEDS ORDERED: TIOT4MIS5 IH (00:21)
[2017-04-09] MEDS ORDERED: TIZA4TAB4 PO (00:23)
[2017-04-09] MEDS ORDERED: FLUT15.88 NS (00:23)
[2017-04-09] MEDS ORDERED: BUTA1CAP41 PO (00:23)
[2017-04-09] MEDS ORDERED: LORA10CA PO (00:23)
[2017-04-09] MEDS ORDERED: FRSM80T PO (00:25)
[2017-04-09] MEDS ORDERED: DOCU-41 PO (00:28)
[2017-04-09 00:39] VITALS: PULSE 81
[2017-04-09] MEDS ORDERED: Glucose 40% Oral Gel 15 Gm Tube PO PRN (00:45)
[2017-04-09] MEDS ORDERED: Albuterol 2.5 mg/3 mL Inhalation Solution NEB PRN (00:57)
[2017-04-09] MEDS ORDERED: hydrOXYzine Pamoate 25 mg Capsule PO PRN (01:00)
[2017-04-09] MEDS ORDERED: HYDROmorphone 0.5 mg/0.5 mL iSecure Syringe IVPUSH ONE (01:50)
[2017-04-09] MEDS: Insulin Human REGular 300 Unit/3 mL Inj SUBQ SCH ×4 (02:23→20:30)
--- NOTE | 2017-04-09 02:36 | NUR ---
Admit pt arrived to [facility] room 1023 at 2215. she was able to walk from the gurney to the bed with minimal assistance. since being here pt has walked into the bathroom to void and was steady on her feet. she says she has a history of dizziness and falling to the ground so she has been asked to call for assistance before getting up. she is alert and oriented x3. pt oxygen level does well when she is sitting up but laying down she needs to wear her bipap machine or she can become severely SOB. VSS and afebrile. pt has complained of pain in her LLQ of her abdomen 8/10 in intensity. she has been receiving 0.5mg of IV dilaudid, which she says "takes the edge off" and makes the pain tolerable. she is NPO. admit complete, med rec completed by pharmacist. care continues.
--- NOTE | 2017-04-09 02:49 | NUR ---
Psych pt reports that she has had multiple suicide attempts in the past but denies any suicide attempts for the past several years and says she has no current suicidal ideation. she does however report recent self harm. she has a scabbed over abrasion on her L arm that she says was self inflicted. all objects that could she could use to harm herself with have been removed from the room. pt has signed a no harm contract. she appears willing to be open and honest about how she is feeling and agrees to alert staff if she feels the urge to self harm. she is interested in obtaining further psychological help. frequent rounding and observation being done. care continues.
[2017-04-09 04:42] VITALS: BP 150/79; PULSE 75; RESP 20; O2SAT 96
[2017-04-09] MEDS: HYDROmorphone 0.5 mg/0.5 mL iSecure Syringe IVPUSH PRN ×6 (04:47→22:41)
[2017-04-09] MEDS: 0.9% Sodium Chloride 1,000 ML IV SCH ×2 (05:01→16:13)
[2017-04-09 05:57] LABS: BASOPHILS % (AUTO) 0.2 % (0-3); EOSINOPHILS % (AUTO) 2.7 % (0-5); Mean Corpuscular Hemoglobin 28.4 pg (27.0-35.0); Mean Corpuscular Volume 86.5 fL (81-100); Platelet Count 205 bil/L (150-400)
--- NOTE | 2017-04-09 07:31 | NUR ---
Pain This AM pt had an increase in pain in her abdomen that she said was moving farther up her side. dilaudid was administered but did not help. MD was made aware and she ordered a CT w/o contrast of abdomen STAT. pt was taken to CT in her bed 0530. she has been brought back to her room. she is more comfortable in a sitting position then laying down. she is currently sitting up in bed watching tv. she still has abdominal pain but says sitting up it is more tolerable then when she was laying. awaiting results from CT and MD orders. Care continues.
[2017-04-09] MEDS: oxyCODONE-Acetamin 5-325 mg Tablet PO SCH ×4 (08:08→21:30)
[2017-04-09] MEDS ORDERED: PALIPERIDONE 3 MG PO SCH (08:30)
[2017-04-09 08:43] VITALS: BP 126/73; PULSE 69; RESP 21; O2SAT 95
[2017-04-09] MEDS: Ondansetron 2 mg/mL 2 mL Inj IVPUSH PRN (09:04)
[2017-04-09] MEDS: metroNIDAZOLE Inj 1,000 MG in IV Premix 1 EACH IV SCH ×2 (09:06→20:31)
[2017-04-09] MEDS: Heparin 5,000 Unit/mL Inj SUBQ SCH ×2 (09:20→17:35)
[2017-04-09] MEDS: Pantoprazole 40 mg ER24 Tablet PO SCH ×2 (09:22→17:35)
[2017-04-09] MEDS: Tiotropium 18mcg/Cap 5 Capsule Inhaler Kit INHALATION SCH (09:26)
[2017-04-09] MEDS: Fluticasone-Salmeterol 500-50 Inhaler INHALATION SCH ×2 (09:29→20:22)
[2017-04-09] MEDS: Insulin GLARgine 100 Unit/mL Syringe SUBQ SCH ×2 (10:45→22:39)
[2017-04-09 10:59] VITALS: PULSE 70
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
[2017-04-09] MEDS: risperiDONE 1 mg Tablet PO SCH (12:43)
[2017-04-09 13:27] VITALS: BP 97/62; PULSE 65; RESP 20; O2SAT 97
--- NOTE | 2017-04-09 13:42 | DRSVH ---
PROCEDURE: CT ABDOMEN AND PELVIS WITHOUT CONTRAST ([id number]) INDICATIONS: abd pain increase, free air? TECHNIQUE: Noncontrast 5 mm thick sections acquired from the diaphragms to the symphysis. 5 mm coronal and sagi ttal reformats were then performed. For radiation dose reduction, the following was used: automated exposure control, adjustment of mA and/or kV according to patient size. COMPARISON: [facility], CT, CT ABD PELVIS W CON, 04/08/2017, 19:27. FINDINGS: Image quality: Motion degraded examination. ABDOMEN: Lung bases: Lung bases are clear. Heart size is normal. Solid organs: There is hepatic steatosis with relative sparing around the gallbladder fossa, otherwis e liver and spleen are normal in appearance. Gallbladder grossly unremarkable. Pancreas is normal i n contours. No adrenal nodules. Kidneys are normal in size, without hydronephrosis or nephrolithias is. Peritoneum and bowel: There is redemonstration of acute diverticulitis involving the distal descendin g colon as before. No abscess or definite free air is seen. Overall appearance is grossly unchanged s zoe yesterday. No free fluid. Appendix appears normal. The rectum is decompressed otherwise unremarkable. Nodes and vessels: No retroperitoneal or mesenteric adenopathy by size criteria. Aorta and inferior vena cava are normal in caliber. Miscellaneous: No ventral hernias. PELVIS: Genitourinary: Bladder wall thickness is normal. Miscellaneous: No inguinal hernias or adenopathy. Bones: No suspicious bony lesions. No vertebral body compression fractures. IMPRESSION: Overall, stable examination since yesterday. No evidence of free air. Motion degradation of the study . Dictated by: Manuel Sandoval M.D. on 04/09/2017 at 13:36 Approved by: Manuel Sandoval M.D. on 04/09/2017 at 13:40
--- NOTE | 2017-04-09 15:33 | PCM.PNMED ---
Subjective Date of Service April 09, 2017 Subjective Still having substantial abdominal pain. Denying nausea and vomiting or dyspnea and chest pain Exam Vital Signs Vital Sign - Last Date Time Temp Pulse Resp B/P Pulse Ox O2 Delivery O2 Flow Rate FiO2 04/09/17 13:27 36.9 65 20 97/62 97 CPAP Intake and Output 04/08/17 04/08/17 04/09/17 Cumulative From/Thru 15:00 23:00 07:00 04/08/17 22:21 - 04/09/17 05:54 Intake Total 0 ml 0 ml Balance 0 ml 0 ml Intake Oral 0 ml 0 ml # Voids 2 2 Exam Gen.- no apparent distress. Morbidly obese female sleeping on her left side with CPAP on later she just sitting up in bed in mild distress except when she will Eyes-open, conjunctivae clear, no drainage ENT- ears normal, nose normal, hearing intact Neck- supple/trach midline CVS- RRR no murmur or gallop auscultated heart sounds distant Lungs-regular, CTA GI-generous pannus, NABS, tenderness particularly left lower quadrant with rebound hard to assess guarding given body habitus Musc- moving 4 no obvious deformity Neuro- cranial nerves II through XII intact to gross examination, nonfocal Skin- warm and dry, no rashes/lesions/wounds noted Psych-pleasant and appropriate Lab and Diagnostics Result Diagram: 04/09/17 0453 04/09/17 0453 X-Rays, CTs and MRIs CT Abd / Pelvis Interpretation - per ED documentation IMPRESSION: 1. Diverticulitis of the distal descending colon without evidence of abscess or macroscopic free air. 2. Stable small left adrenal adenoma. 3. Hepatic steatosis. Dictated by: Bull Saleem M.D. on 04/08/2017 at 19:48 Study type: Abdominal CT IV contrast Interpretation / Wet Read by: Interpret - Radiologist Assessment & Plan 56 year old female with Diabetes, COPD, Stroke, and sleep apnea on BiPAP admitted with abdominal pain and imaging consistent with diverticulitis. 04/09 patient labs/rads look good, clinically patient and his in a lot of pain. She has received 2 CT scans and if I had not seen that I was ready to order her third. We discussed the AIRCRAFT POWERPLANT REPAIRER but because of her sleep apnea we elected to leave the nurse in charge of pain medication so we do not risk her falling asleep without her CPAP on and she knows how badly she needs it. No changes to medical management today on this medically complex patient at high risk for complications. Diverticulitis, acute, POA -giving patient sips and chips she has got ongoing severe pain -levofloxacin / metronidazole 04/08 given abx allergies -low threshold to complete additional CT to assess for perforation with clinical decline, keep in mind patient got a CT scan 04/08 and 04/09 early a.m. Bipolar / depression -continue home medications -psych consult may be needed as patient has been self harming since prior to admission -she is not suicidal but may need adjustments on psychiatric medications COPD. Present on admission. -continue home inhalers Diabetes Type 2, insulin using with diabetic neuropathy - continue Lantus 20 BID (half dose while NPO) and Lyrica - Lispro medium correction algorithm Obstructive Sleep apnea - On BIPAP for sleep at home. Continue BiPAP at night Asthma - Continue home montelukast Nicotine dependence. ongoing Counseled patient concerning cessation and benefits, she is ready to quit - Nicotine patch as needed Restless leg syndrome - Continue home Mirapex Hyperlipidemia - Continue home simvastatin - Acetaminophen as needed for mild pain/fever/headache - Bowel regimen as needed when taking PO - Antiemetic as needed Patient admitted under inpatient status with expected length of stay > 2 midnights for severity of present symptoms, complexities of treatment plan and risk for adverse event . Resuscitation Status: CPR: Attempt Resuscitation VTE Prophylaxis: Sub-Q Heparin (Unfractionated) VTE Mechanical Devices: Intermittant Pneumatic CD Resuscitation Status: CPR: Attempt Resuscitation Gal Keating MD April 09, 2017 15:33
--- NOTE | 2017-04-09 18:35 | NUR ---
Pain patient with left lower quadrant pain rated fro 5-10/10 today. Pt given Dilaudid ivp for pain control refused Percocet as said does not work for pain control. Patient had catscan scan today and results showing diverticulitis. Patient medicated this am for nausea x1. Pt up with sba to bathroom did get dizzy and slightly wobbly x1. Pt knows not to be up independently and is using call light appropriately.
[2017-04-09 19:57] VITALS: BP 144/79; PULSE 69; RESP 19; O2SAT 97
[2017-04-09] MEDS: levoFLOXacin Inj 750 MG in IV Premix 1 EACH IV SCH (22:42)
[2017-04-10] VITALS (9 sets, daily range): BP systolic 115–142; BP diastolic 70–91; PULSE 60–77; RESP 16–21; O2SAT 96–99
[2017-04-10] MEDS: HYDROmorphone 0.5 mg/0.5 mL iSecure Syringe IVPUSH PRN ×10 (00:47→23:09)
[2017-04-10] MEDS: Heparin 5,000 Unit/mL Inj SUBQ SCH ×3 (00:47→16:08)
[2017-04-10] MEDS: 0.9% Sodium Chloride 1,000 ML IV SCH ×2 (00:53→14:19)
[2017-04-10] MEDS: Insulin Human REGular 300 Unit/3 mL Inj SUBQ SCH ×5 (02:30→22:27)
--- NOTE | 2017-04-10 03:53 | NUR ---
Pain Pt continued to c/o pain 7-07/07 all shift. Requesting PRN dilaudid q2hrs with + effects. Pain isolated to LLQ. increases with movement. Pt did not have any dizziness when getting up to BR this shift, using call appropriately,Care continues
[2017-04-10] MEDS: oxyCODONE-Acetamin 5-325 mg Tablet PO SCH ×4 (06:16→22:19)
[2017-04-10 08:25] LABS: BASOPHILS % (AUTO) 0.2 % (0-3); Mean Corpuscular Hemoglobin 28.8 pg (27.0-35.0); Mean Corpuscular Volume 87.6 fL (81-100); Platelet Count 183 bil/L (150-400)
[2017-04-10] MEDS: Pantoprazole 40 mg ER24 Tablet PO SCH ×2 (08:43→16:24)
[2017-04-10] MEDS: risperiDONE 1 mg Tablet PO SCH (08:44)
[2017-04-10] MEDS: Tiotropium 18mcg/Cap 5 Capsule Inhaler Kit INHALATION SCH (08:44)
[2017-04-10] MEDS: Insulin GLARgine 100 Unit/mL Syringe SUBQ SCH ×2 (08:44→22:27)
[2017-04-10] MEDS: Fluticasone-Salmeterol 500-50 Inhaler INHALATION SCH ×2 (08:45→22:09)
[2017-04-10] MEDS: metroNIDAZOLE Inj 1,000 MG in IV Premix 1 EACH IV SCH ×2 (08:46→22:06)
[2017-04-10] MEDS: Ondansetron 2 mg/mL 2 mL Inj IVPUSH PRN ×3 (09:04→23:25)
[2017-04-10 09:18] LABS: Phosphorus 3.4 mg/dL (2.5-4.9)
--- NOTE | 2017-04-10 10:00 | NUR ---
Off Unit to Xray at 0915, left via w/c. A&Ox3, SAI, MADAY patent and infusing Flagyl, Tele on - tech aware of transport. Returned to unit just prior to ~1000. Back in recliner.
--- NOTE | 2017-04-10 10:07 | NUR ---
Social Work- Readiness for Discharge Data: EMR reviewed. Pt is on day 2 of hospitalization for acute diverticulitis per H&P. Pt is not medically ready for discharge, anticipate 1-2 more days. Pt to have her diet advanced today. Pt to discharge home with Lavern ANGULO RN PT STRAIGHT LINE EDGER and [facility] caregivers, SO to transport. Signed F2F in folder, copy in hard chart. SW will continue to follow. Assessment: Pt for whom La[facility] ANGULO RN PT is medically necessary. Plan: Pt to discharge home with Lavern ANGULO RN PT STRAIGHT LINE EDGER and CHRISTINE caregivers, SO to transport. Signed F2F in folder, copy in hard chart. SW will continue to follow. Renita Stuart MSW
--- NOTE | 2017-04-10 10:20 | DRSVH ---
PROCEDURE: X-RAY LEFT SHOULDER, MINIMUM TWO VIEWS ([id number]) INDICATIONS: shoulder pain TECHNIQUE: 3 views of the shoulder were acquired. COMPARISON: [facility], , SHOULDER MIN 2VW (LT), 04/04/2014, 15:06. FINDINGS: Bones: No fractures or dislocations. There is minimal acromioclavicular joint degeneration. No susp icious bony lesions. Visualized ribs appear intact. Soft tissues: No suspicious soft tissue calcifications. IMPRESSION: 1. Minimal acromioclavicular joint degeneration. Dictated by: Bull Saleem M.D. on 04/10/2017 at 10:13 Approved by: Bull Saleem M.D. on 04/10/2017 at 10:13
--- NOTE | 2017-04-10 10:38 | DRSVH ---
PROCEDURE: X-RAY CERVICAL SPINE, 2 OR 3 VIEWS INDICATIONS: shoulder pain TECHNIQUE: 4 views of the cervical spine were acquired. COMPARISON: None. FINDINGS: Bones: No definite fractures or dislocations to the C7 level with evaluation limited inferior to C5- C6. The lateral masses of C1 appear intact on the odontoid view. There is mild disc space narrowing in the lower cervical spine. No suspicious bony lesions. Soft tissues: No prevertebral soft tissue swelling. IMPRESSION: 1. No definite fracture or dislocation. 2. Mild degenerative disc disease in the lower cervical spine. Dictated by: Bull Saleem M.D. on 04/10/2017 at 10:29 Approved by: Bull Saleem M.D. on 04/10/2017 at 10:31
--- NOTE | 2017-04-10 12:02 | NUR ---
JULIAN signed by pt at bedside. Renita Stuart, MARKETING PRODUCTION COORDINATOR
--- NOTE | 2017-04-10 12:38 | PCM.PNMED ---
Subjective Date of Service April 10, 2017 Subjective feels hungry, no n/v, diarrhea c/o severe shoulder pain, cannot lift up, had aches in the past, now it became really severe sharp pain, travled from her neck denied weakness on arms, tingling, numbness Exam Vital Signs Vital Sign - Last Date Time Temp Pulse Resp B/P Pulse Ox O2 Delivery O2 Flow Rate FiO2 04/10/17 06:11 36.5 65 18 130/75 99 Non-Rebreather Intake and Output 04/09/17 04/09/17 04/10/17 Cumulative From/Thru 15:00 23:00 07:00 04/08/17 22:21 - 04/10/17 06:48 Intake Total 200 ml 3474 ml 3674 ml Output Total 1150 ml 1500 ml 2650 ml Balance -950 ml 1974 ml 1024 ml Intake Oral 200 ml 900 ml 1100 ml IV Total 2574 ml 2574 ml Output Urine Total 1150 ml 1500 ml 2650 ml # Voids 2 Exam NAD, comfortably laying down on the bed no JVD, MMM, no LAD RRR, nl s1, s2 no mrg CTAB, no w,c S,ND,mild ttp on LLQ, normoactiveBS++ warm, no edema, pulses 2/2 MSK: LROM due to pain on shoulder J, with active/passive movement, no effusion spurling test neg IVs and Medications Medications Reviewed: Medications were reviewed in detail Lab and Diagnostics Result Diagram: 04/10/17 0756 04/09/17 0453 X-Rays, CTs and MRIs CT Abd / Pelvis Interpretation - per ED documentation IMPRESSION: 1. Diverticulitis of the distal descending colon without evidence of abscess or macroscopic free air. 2. Stable small left adrenal adenoma. 3. Hepatic steatosis. Dictated by: Bull Saleem M.D. on 04/08/2017 at 19:48 Study type: Abdominal CT IV contrast Interpretation / Wet Read by: Interpret - Radiologist Assessment & Plan 56 year old female with Diabetes, COPD, Stroke, and sleep apnea on BiPAP admitted with abdominal pain and imaging consistent with diverticulitis. 04/09 patient labs/rads look good, clinically patient and his in a lot of pain. She has received 2 [address] scans and if I had not seen that I was ready to order her third. We discussed the REIMBURSEMENT SPEC but because of her sleep apnea we elected to leave the nurse in charge of pain medication so we do not risk her falling asleep without her CPAP on and she knows how badly she needs it. No changes to medical management today on this medically complex patient at high risk for complications. acute, active Diverticulitis, acute, POA, CT scan 04/08 and 04/09 unchanged, no complications such as perforation, abscess -pt clinically improving with better pain controlled -continue levofloxacin / metronidazole 04/08 given abx allergies -advance diet today Shoulder pain, POA, worsened from baseline, shoulder/cervical spine xray showed mild DJD on C-spines, AC joint. no signs of cord involvement. -follow up with rehab, orthopedic, pain clinic, possibly needs steroid injection for better pain control chronic, stable Bipolar / depression -continue home medications -psych consult may be needed as patient has been self harming since prior to admission -she is not suicidal but may need adjustments on psychiatric medications COPD. Present on admission. -continue home inhalers Diabetes Type 2, insulin using with diabetic neuropathy - continue Lantus 20 BID (half dose while NPO) and Lyrica - Lispro medium correction algorithm Obstructive Sleep apnea - On BIPAP for sleep at home. Continue BiPAP at night Asthma - Continue home montelukast Nicotine dependence. ongoing Counseled patient concerning cessation and benefits, she is ready to quit - Nicotine patch as needed Restless leg syndrome - Continue home Mirapex Hyperlipidemia - Continue home simvastatin - Acetaminophen as needed for mild pain/fever/headache - Bowel regimen as needed when taking PO - Antiemetic as needed dispo: likely tomorrow if clinically remains stable . Resuscitation Status: CPR: Attempt Resuscitation VTE Prophylaxis: Sub-Q Heparin (Unfractionated) VTE Mechanical Devices: Intermittant Pneumatic CD Resuscitation Status: CPR: Attempt Resuscitation Time spent 35min Naveed Ray MD April 10, 2017 08:44
--- NOTE | 2017-04-10 20:11 | NUR ---
Pain Pt continues to require Q2h 0.5mg IVP Dilaudid dosing. In afternoon, pt tearful and trying to talk herself through the pain she was having. MD made aware and received increased dosage of Percocet from 5mg to 10mg. In addition to her Q2h doses. Appears to have made pain more manageable but increased pain continues with activity. Continuing to ice shoulder. Pt has been cooperative with care - no issues. Care continues.
[2017-04-10] MEDS: levoFLOXacin Inj 750 MG in IV Premix 1 EACH IV SCH (23:16)
[2017-04-11 00:20] VITALS: BP 122/79; PULSE 60; RESP 16; O2SAT 99
[2017-04-11] MEDS: Heparin 5,000 Unit/mL Inj SUBQ SCH ×2 (00:21→08:37)
[2017-04-11] MEDS: HYDROmorphone 0.5 mg/0.5 mL iSecure Syringe IVPUSH PRN ×4 (01:12→06:41)
[2017-04-11] MEDS: 0.9% Sodium Chloride 1,000 ML IV SCH ×2 (01:47→07:45)
--- NOTE | 2017-04-11 03:38 | NUR ---
Pain Pt. has had moderate to severe pain. Pt. reports that the IV Dilaudid is effective for lowering her pain. Pt. reports that her pain increases at times to about 8/10 due to increased pain during ambulation. Ice applied on shoulder. Will continue to monitor.
[2017-04-11 04:10] VITALS: BP 118/75; PULSE 58; RESP 18; O2SAT 98
[2017-04-11 06:22] LABS: BASOPHILS % (AUTO) 0.3 % (0-3); EOSINOPHILS % (AUTO) 4.1 % (0-5); Mean Corpuscular Hemoglobin 28.4 pg (27.0-35.0); Mean Corpuscular Volume 88.5 fL (81-100); NEUTROPHILS % (AUTO) 57.2 % (40-74); Platelet Count 179 bil/L (150-400)
[2017-04-11] MEDS: oxyCODONE-Acetamin 5-325 mg Tablet PO SCH ×2 (06:41→11:04)
[2017-04-11 06:44] LABS: Phosphorus 3.6 mg/dL (2.5-4.9)
[2017-04-11] MEDS ORDERED: METR500T PO (08:04)
[2017-04-11] MEDS ORDERED: LEVO750T9 PO (08:04)
[2017-04-11 08:23] VITALS: PULSE 64; RESP 16; O2SAT 98
[2017-04-11] MEDS: Fluticasone-Salmeterol 500-50 Inhaler INHALATION SCH (08:25)
[2017-04-11] MEDS: Tiotropium 18mcg/Cap 5 Capsule Inhaler Kit INHALATION SCH (08:26)
[2017-04-11] MEDS: risperiDONE 1 mg Tablet PO SCH (08:27)
[2017-04-11] MEDS: Pantoprazole 40 mg ER24 Tablet PO SCH (08:28)
[2017-04-11] MEDS: metroNIDAZOLE Inj 1,000 MG in IV Premix 1 EACH IV SCH (08:35)
[2017-04-11] MEDS: Insulin Human REGular 300 Unit/3 mL Inj SUBQ SCH ×2 (08:42→12:19)
[2017-04-11] MEDS: Insulin GLARgine 100 Unit/mL Syringe SUBQ SCH (08:43)
[2017-04-11 08:45] VITALS: BP 145/84; PULSE 63; RESP 18; O2SAT 97
--- NOTE | 2017-04-11 09:21 | PCM.DIMED ---
Discharge Instructions Date of Service April 11, 2017 Dates of Hospitalization April 08, 2017 at 20:51 Discharge Diagnosis Discharge Diagnosis acute diverticulitis involving the distal descending colon degenerative joint disease on Acromioclavicular joint Medication Instructions Please continue to take Flagyl 1000mg every 12hrs, Levaquin 750mg daily for 11more days Diet No restrictions, Low fat, Low Sodium Activity No restrictions Patient Instructions You were hospitalized with abdominal pain, nausea, found to have diverticulitis , inflammation of your colon. You were treated supportively with IV fluid and antibiotics. Your symptoms were greatly improved. Please follow up with your doctor in 2weeks Please consider repeat images on your shoulder and your neck given your persistent pain Follow-up Provider: David Stephen MD Follow-up with PCP in: 2 weeks Naveed Ray MD April 11, 2017 09:21
[2017-04-11 10:22] VITALS: PULSE 61
--- NOTE | 2017-04-11 10:29 | NUR ---
NUTRITION CONSULT RN requested consult re diverticulitis diet. Educated pt on diverticulitis diet and appropriate foods. Please see RD Teaching record under care activity.
--- NOTE | 2017-04-11 11:24 | NUR ---
Social Work: Discharge Data: EMR reviewed. Pt is on day 3 of hospitalization for acute diverticulitis per H&P. Pt is medically ready to discharge today. Pt to discharge home with Lavern ANGULO RN PT MAINTAINER OPERATOR and CHRISTINE caregivers, SO to transport. Signed F2F in folder, copy in hard chart. PUSHPA called Lavern ANGULO to confirm discharge orders have been entered. SW met with pt to confirm discharge plan. Pt is agreeable to discharge plan. SW will continue to follow. Assessment: Pt for whom ADELE RN PT has been deemed medically necessary. Plan: Pt to discharge home with Lavern ANGULO RN PT MAINTAINER OPERATOR and CHRISTINE caregivers, SO to transport. Signed F2F in folder, copy in hard chart. SW will continue to follow. PRIYANK Ramos
[2017-04-11 12:27] VITALS: BP 136/83; PULSE 68; RESP 18; O2SAT 97
--- NOTE | 2017-04-11 13:50 | NUR ---
Discharge Pt to discharge to home with friend; A&Ox3, RA, SPO2 mid 90's, steady gait, 1 IV access discontinued. Pt given written and verbal instructions to f/u with her PCP Dr Stephen within 2 weeks, follow low sodium, low fat diet, no restrictions on activity and to consider repeat images for L shoulder and neck if persistent pain continues. Pt given written and verbal instructions on medication dosages and times to be taken, to which pt states verbal understanding of all discharge instruction. All personal belongings with pt at time of discharge (clothing, wallet from safe, Bi-pap machine, shoes, duffle bag, glasses, hearing aides.) Pt ambulated off the unit with her friend, steady gait.
--- NOTE | 2017-04-11 15:25 | PCM.DC.MED ---
Discharge Summary Date of Service April 11, 2017 Dates of Hospitalization Date of Hospital Admission April 08, 2017 at 20:51 Date of Discharge: April 11, 2017 Providers: Admitting Physician: Eden Mcleod DO Primary Care Physician: David Stephen MD Attending Physician: Eden Mcleod DO Diagnosis at Time of Discharge Diagnosis at Time of Discharge acute dx acute diverticulitis involving the distal descending colon degenerative joint disease on Acromioclavicular joint chronic dx Bipolar / depression, COPD. Asthma, Diabetes Type 2, Obstructive Sleep apnea, Nicotine dependence. Restless leg syndrome, Hyperlipidemia, Procedures XRay, CTs & MRIs PROCEDURE: X-RAY CERVICAL SPINE, 2 OR 3 VIEWS INDICATIONS: shoulder pain TECHNIQUE: 4 views of the cervical spine were acquired. COMPARISON: None. FINDINGS: Bones: No definite fractures or dislocations to the C7 level with evaluation limited inferior to C5-C6. The lateral masses of C1 appear intact on the odontoid view. There is mild disc space narrowing in the lower cervical spine. No suspicious bony lesions. Soft tissues: No prevertebral soft tissue swelling. IMPRESSION: 1. No definite fracture or dislocation. 2. Mild degenerative disc disease in the lower cervical spine. Dictated by: Bull Saleem M.D. on 04/10/2017 at 10:29 Approved by: Bull Saleem M.D. on 04/10/2017 at 10:31 PROCEDURE: X-RAY LEFT SHOULDER, MINIMUM TWO VIEWS ([id number]) INDICATIONS: shoulder pain TECHNIQUE: 3 views of the shoulder were acquired. COMPARISON: [facility], , SHOULDER MIN 2VW (LT), 04/04/2014, 15: 06. FINDINGS: Bones: No fractures or dislocations. There is minimal acromioclavicular joint degeneration. No suspicious bony lesions. Visualized ribs appear intact. Soft tissues: No suspicious soft tissue calcifications. IMPRESSION: 1. Minimal acromioclavicular joint degeneration. Dictated by: Bull Saleem M.D. on 04/10/2017 at 10:13 Approved by: Bull Saleem M.D. on 04/10/2017 at 10:13 PROCEDURE: CT ABDOMEN AND PELVIS WITHOUT CONTRAST ([id number]) INDICATIONS: abd pain increase, free air? TECHNIQUE: Noncontrast 5 mm thick sections acquired from the diaphragms to the symphysis. 5 mm coronal and sagittal reformats were then performed. For radiation dose reduction, the following was used: automated exposure control, adjustment of mA and/or kV according to patient size. COMPARISON: [facility], CT, CT ABD PELVIS W MARY, 04/08/2017, 19:27. FINDINGS: Image quality: Motion degraded examination. ABDOMEN: Lung bases: Lung bases are clear. Heart size is normal. Solid organs: There is hepatic steatosis with relative sparing around the gallbladder fossa, otherwise liver and spleen are normal in appearance. Gallbladder grossly unremarkable. Pancreas is normal in contours. No adrenal nodules. Kidneys are normal in size, without hydronephrosis or nephrolithiasis. Peritoneum and bowel: There is redemonstration of acute diverticulitis involving the distal descending colon as before. No abscess or definite free air is seen. Overall appearance is grossly unchanged since yesterday. No free fluid. Appendix appears normal. The rectum is decompressed otherwise unremarkable. Nodes and vessels: No retroperitoneal or mesenteric adenopathy by size criteria. Aorta and inferior vena cava are normal in caliber. Miscellaneous: No ventral hernias. PELVIS: Genitourinary: Bladder wall thickness is normal. Miscellaneous: No inguinal hernias or adenopathy. Bones: No suspicious bony lesions. No vertebral body compression fractures. IMPRESSION: Overall, stable examination since yesterday. No evidence of free air. Motion degradation of the study. Dictated by: Manuel Sandoval M.D. on 04/09/2017 at 13:36 Approved by: Manuel Sandoval M.D. on 04/09/2017 at 13:40 Brief History HPI obtained by on 04/08 Janet Pat is a 56 year old female with Diabetes, COPD, Stroke, and sleep apnea on BiPAP admitted with abdominal pain and imaging consistent with diverticulitis. The morning of 04/08 patient began having abdominal pain which increased throughout the morning into the afternoon at which time she rated it as dull 8/ 10 abdominal pain in the LLQ radiating to her umbilicus and left upper quadrant. Abdominal pain was associated with nausea but no emesis, lightheadedness, dizziness and some dyspnea which she attributes to increased pain. She denies changes in bowel movements, melena, hematochezia, chest pain, chest tightness. Her pain is different from previous abdominal pain and she denies any history of diverticulitis in the past. On presentation T 37.2, HR 52, RR 18, BP 127/64, 95% on RA. WBC elevated at 13 , glucose was elevated at 239. CT scan as per ED report with impression of diverticulitis of the distal descending colon without evidence of abscess or macroscopic free air. Hospital Course 56 year old female with Diabetes, COPD, Stroke, and sleep apnea on BiPAP admitted with abdominal pain and imaging consistent with diverticulitis. 04/09 patient labs/rads look good, clinically patient and his in a lot of pain. She has received 2 [address] scans and if I had not seen that I was ready to order her third. We discussed the SQUASH CENTRE MANAGER but because of her sleep apnea we elected to leave the nurse in charge of pain medication so we do not risk her falling asleep without her CPAP on and she knows how badly she needs it. No changes to medical management today on this medically complex patient at high risk for complications. acute dx acute diverticulitis, patient was treated with levofloxacin / metronidazole. repeat CT abdomen shows acute diverticulitis in descending colon. No complications such as perforation, abscess, fluid collection were seen. Initially pain was not continued but eventually controlled, patient was able to tolerate diet, which was advanced successfully. Pt deemed safe for d/c. Shoulder pain, pt c/o very severe shoulder pain, which was worsened from baseline pain, shoulder/cervical spine xray showed mild DJD on C-spines, AC joint. no signs of cord involvement. ROM was preserved and pain was tolerable upon d/c. MRI was contraindicated due to spinal stimulator. Patient likely benefit from PT, further images with CT myelogram if symptoms continue. chronic dx Bipolar / depression, continued home medications, prior SI, but not addressed during hospitalization COPD. Present on admission. continued home inhalers Diabetes Type 2, insulin using with diabetic neuropathy, continued Lantus 20 BID (half dose while NPO) and Lyrica, Lispro medium correction algorithm Obstructive Sleep apnea, continued BiPAP at night Asthma, Continued home montelukast Nicotine dependence. ongoing, Counseled patient concerning cessation and benefits, she is ready to quit, Nicotine patch as needed Restless leg syndrome, Continued home Mirapex Hyperlipidemia, Continued home simvastatin Exam Vital Signs (Last) Date Time Temp Pulse Resp B/P Pulse Ox O2 Delivery O2 Flow Rate FiO2 04/11/17 12:27 36.4 68 18 136/83 97 Room Air Exam morbidly obese middle aged female NAD, comfortably laying down on the bed no JVD, MMM, no LAD RRR, nl s1, s2 no mrg CTAB, no w,c S,ND,mild ttp on LLQ, normoactiveBS++ warm, no edema, pulses 2/2 Test 04/08/17 17:55 04/08/17 18:00 04/11/17 06:00 Urine Color Yellow (YELLOW) Urine Appearance Clear (CLEAR,HAZY) Urine pH 6.5 (5.0-8.0) Urine Specific [place] 1.013 (1.003-1.035) Urine Protein Negativemg/dL (NEG,TRACE) Urine Glucose (UA) 250mg/dL (NEGATIVE) Urine Ketones Negativemg/dL (NEGATIVE) Urine Occult Blood Negative (NEGATIVE) Urine Nitrite Negative (NEGATIVE) Urine Bilirubin Negative (NEGATIVE) Urine Urobilinogen Normalmg/dL (NORMAL) Urine Leukocyte Esterase Negative (NEGATIVE) Urine RBC 0-2/hpf (0-2) Urine WBC 0-5/hpf (0-5) Urine Epithelial Cells Moderate/hpf (NONE-MOD) Urine Crystals None seen (NONE SEEN) Urine Bacteria None/hpf (NONE-FEW) Urine Hyaline Casts None/lpf (NONE) Urine Granular Casts None seen (NONE SEEN) Urine Waxy Casts None seen (NONE SEEN) Urine Red Blood Cell Casts None seen (NONE SEEN) Urine White Blood Cell Casts None seen (NONE SEEN) Urine Mucus None seen (None Seen) Urine Trichomonas None seen (NONE SEEN) Urine Yeast None (NONE SEEN) Urine Culture Reflexed Not indicated Lipase 20U/L (13-60) Lactic Acid Level 1.9mmol/L (0.4-2.0) White Blood Count 7.1th/mm3 (3.8-10.1) Red Blood Count 4.33mil/mm3 (3.90-5.20) Hemoglobin 12.3g/dL (12.0-15.6) Hematocrit 38.3% (35.0-46.0) Mean Corpuscular Volume 88.5fL (81-100) Mean Corpuscular Hemoglobin 28.4pg (27.0-35.0) Mean Corpuscular Hemoglobin Concent 32.1% (32.0-37.0) Red Cell Distribution Width 14.5% (12.3-15.4) Platelet Count 179bil/L (150-400) Neutrophils (%) (Auto) 57.2% (40-74) Lymphocytes (%) (Auto) 30.3% (14-46) Monocytes (%) (Auto) 8.0% (4-12) Eosinophils (%) (Auto) 4.1% (0-5) Basophils (%) (Auto) 0.3% (0-3) Sodium Level 140mEq/L (134-144) Potassium Level 4.8mEq/L (3.5-5.2) Chloride Level 101mEq/L (97-108) Carbon Dioxide Level 25mmol/L (18-29) Blood Urea Nitrogen 8mg/dL (6-24) Creatinine 0.88mg/dL (0.57-1.00) Estimat Glomerular Filtration Rate 95mL/min (>59) Glucose Level 164mg/dL (60-99) Calcium Level 9.0mg/dL (8.5-10.1) Phosphorus Level 3.6mg/dL (2.5-4.9) Magnesium Level 2.0mg/dL (1.6-2.6) Total Bilirubin 0.5mg/dL (0.0-1.2) Aspartate Amino Transf (AST/SGOT) 24U/L (0-50) Alanine Aminotransferase (ALT/SGPT) 19U/L (0-32) Alkaline Phosphatase 98U/L (25-150) Total Protein 6.5g/dL (6.4-8.4) Albumin 3.7g/dL (3.4-5.0) Discharge Medications Discharge Medications Fluticasone Propionate (Fluticasone Propionate) 50 Mcg/Actuation Avenel.susp 1 SPRAY NS BID (Reported) Fluticasone/Vilanterol (Breo Ellipta 200-25 Mcg INH) 200 Mcg-25 Mcg/Dose Blst.w.dev 1 EACH IH QAM (Reported) Furosemide (Furosemide) 80 Mg Tab 160 MG PO BIDBL (Reported) Insulin Aspart (NovoLOG U100 Insulin Vial) 100 U/Ml U 30-50 UNIT SUBQ TIDAC ( Reported) Insulin Glargine (Lantus U100 Insulin Vial) 100 Unit/Ml Vial 60 SUBQ BID ( Reported) Levofloxacin (Levaquin) 750 Mg Tablet 750 MG PO DAILY Prescribed by: NAVEED AMIN MD Loratadine (Claritin) 10 Mg Capsule 10 MG PO HS (Reported) Metronidazole (Flagyl) 500 Mg Tablet 1,000 MG PO Q12H Prescribed by: NAVEED AMIN MD Montelukast (Montelukast) 10 Mg Tablet 10 MG PO HS (Reported) Omeprazole (Omeprazole) 40 Mg Capsule.dr 40 MG PO BIDWM (Reported) Paliperidone (Paliperidone ER) 3 Mg Tab.er.24 3 MG PO QAM (Reported) Prazosin (Prazosin) 5 Mg Capsule 5 MG PO HS (Reported) Pregabalin (Lyrica) 200 Mg Capsule 200 MG PO TID (Reported) Simvastatin (Simvastatin) 40 Mg Tablet 40 MG PO HS (Reported) Spironolactone (Spironolactone) 50 Mg Tablet 50 MG PO BIDBL (Reported) Tiotropium [place] (Spiriva Respimat) 1.25 Mcg/Actuation Mist.inhal 1.25 MCG IH QAM (Reported) Topiramate (Topiramate) 50 Mg Tablet 50 MG PO BID (Reported) Trazodone (Trazodone) 50 Mg Tablet 75 MG PO HS (Reported) oxyCODONE-Acetaminophen 5-325 mg (oxyCODONE-Acetaminophen 5-325 mg) 1 Each Tablet 1 TAB PO QID (Reported) 0800, 1200, 1700, 2200 As needed Albuterol Sulfate (Ventolin HFA Inhaler) 200 Puff/18 Gm Inhaler 2 PUFFS INH Q4H PRN PRN For Shortness of Breath (Reported) Butalbital/Acetamin/Caff 50-300-40 mg (Butalbital/Acetamin/Caff 50-300-40 mg) 1 Each Capsule 1 CAPSULE PO Q4H PRN PRN Headache (Reported) Docusate Sodium (Colace) 100 Mg Capsule 200 MG PO BID PRN PRN For Constipation ( Reported) Epinephrine (Epipen 2-Pietro) 0.3 Mg/0.3 Ml Auto.injct 0.3 MG IM PRN For Anaphyllaxis (Reported) Hydroxyzine HCl (HydrOXYzine Hcl) 50 Mg Tablet 50 MG PO Q6H PRN PRN For Anxiety (Reported) Nitroglycerin SL (Nitrostat) 0.4 Mg Tab.subl 0.4 MG SL Q5MIN PRN PRN For Chest Pain (Reported) Tizanidine (Tizanidine) 4 Mg Tablet 4 MG PO TID PRN PRN For Spasm (Reported) Additional med instructions Please continue to take Flagyl 1000mg every 12hrs, Levaquin 750mg daily for 11more days Followup Plan Disposition: home with Lavern ANGULO RN PT NETWORK SUPPORT ANALYST and CHRISTINE caregivers Discharge Diet: No restrictions, Low fat, Low Sodium Discharge Activity: No restrictions Patient Instructions You were hospitalized with abdominal pain, nausea, found to have diverticulitis , inflammation of your colon. You were treated supportively with IV fluid and antibiotics. Your symptoms were greatly improved. Please follow up with your doctor in 2weeks Please consider repeat images on your shoulder and your neck given your persistent pain Follow-up Provider: David Stephen MD Follow-up with PCP in: 2 weeks Time spent 65min Naveed Amin MD April 11, 2017 14:46
== END 2017-04-11 14:50 | disposition home or self-care (01) | DRG 392 ==
LOC: SED 17:17 → OSC 20:51
PROVIDERS: ADMIT Internal Medicine; ATTEND Internal Medicine
DX: K57.32 Diverticulitis of large intestine without perforation or abscess without bleeding (principal); Z68.43 Body mass index [BMI] 50.0-59.9, adult; E66.01 Morbid (severe) obesity due to excess calories; Z86.73 Personal history of transient ischemic attack (TIA), and cerebral infarction without residual deficits; Z79.4 Long term (current) use of insulin; Z79.52 Long term (current) use of systemic steroids; F17.210 Nicotine dependence, cigarettes, uncomplicated; G47.33 Obstructive sleep apnea (adult) (pediatric); F31.9 Bipolar disorder, unspecified; F32.9 Major depressive disorder, single episode, unspecified; E11.40 Type 2 diabetes mellitus with diabetic neuropathy, unspecified; J45.909 Unspecified asthma, uncomplicated; G25.81 Restless legs syndrome; E78.5 Hyperlipidemia, unspecified; J44.9 Chronic obstructive pulmonary disease, unspecified; M19.012 Primary osteoarthritis, left shoulder

== ENCOUNTER 2017-05-11 15:13 | Emergency (ER) | payer MEDICARE, MEDICAID ==
[~2017-05-11] VITALS: Ht 175.3 cm; Wt 176.4 kg
[~2017-05-11 15:13] MED LIST changes: -ARIP15TA7 PO; -BENZ100C8 PO; +BUTA1CAP41 PO; -CIPR-198 PO; +DOCU-41 PO; -DOCU250C2 PO; +FLUT15.88 NS; +FLUT1BLS IH; +FRSM80T PO; -HYDR-3605 PO; -IPRA3AMP IH; +LEVO750T9 PO; +LORA10CA PO; +METR500T PO; +MONT10TA23 PO; +PALI3TAB5 PO; -PRED-508 PO; +TIOT4MIS5 IH; +TIZA4TAB4 PO; -TOPI-31 PO; +TOPI50TA88 PO; -VENL75TA87 PO
[2017-05-11 15:18] VITALS: BP 134/79; PULSE 92; RESP 20; O2SAT 96
--- NOTE | 2017-05-11 15:34 | ED.REPORT ---
HPI-Dyspnea / Wheezing Date of Service May 11, 2017 ED Provider: Domo Ulloa MD Patient is a 56 year old female with a history of COPD on BiPAP, UTI, diabetes, fibromyalgia, bipolar disorder, CVA and hypertension presenting to the ED complaining of fluid retention. The pt noticed increased lower extremity edema three weeks ago. She is normally on two diuretics, but her PCP put her on a third diuretic five days ago. The pt also admits to chest pain, lower extremity pain while walking and shortness of breath onset two days ago, though she denies productive cough or fever. She also denies a history of blood clot, recent surgery, or recent travel. Nursing Notes Stated Complaint: SOB/DRS.ORDERS Chief Complaint: Respiratory Distress Nursing Notes Reviewed: Yes Allergies: Coded Allergies: Penicillins (Verified Allergy, Severe, Anaphylaxis/SWELLING, 03/28/17) fluoxetine (Verified Allergy, Severe, MOOD ALTERATION, 03/28/17) haloperidol (Verified Allergy, Severe, body jerks, 03/28/17) lithium (Verified Allergy, Severe, SWELLING, 03/28/17) morphine (Verified Allergy, Severe, Hallucinations, 03/28/17) propoxyphene (Verified Allergy, Severe, NAUSEA, 03/28/17) sumatriptan (Verified Allergy, Severe, 03/28/17) HIGH BLOOD PRESSURE tyropanic acid (Verified Allergy, Severe, Nausea, 03/28/17) erythromycin base (Verified Allergy, Intermediate, severe abd pain, 03/28/17 ) propranolol (Verified Allergy, Intermediate, hypotension, 03/28/17) cephalexin (Verified Allergy, Unknown, 03/28/17) paliperidone (Verified Allergy, Unknown, breast swelling, 05/11/17) Uncoded Allergies: ASPARAGUS (Allergy, Mild, UNKNOWN, 10/12/16) STRAWBERRIES (Allergy, Unknown, UNKNOWN, 09/22/12) Scheduled Azithromycin (Zithromax (Z-Pietro)) 250 Mg Tablet 250 MG PO DIRECTED Take two tablets by mouth on day 1, then take one tablet daily on days 2 through 5. Azithromycin (Zithromax (Z-Pietro)) 250 Mg Tablet 250 MG PO DIRECTED Take two tablets by mouth on day 1, then take one tablet daily on days 2 through 5. Fluticasone Propionate (Fluticasone Propionate) 50 Mcg/Actuation [place].susp 1 SPRAY NS BID Fluticasone/Vilanterol (Breo Ellipta 200-25 Mcg INH) 200 Mcg-25 Mcg/Dose Blst.w.dev 1 EACH IH QAM Furosemide (Furosemide) 80 Mg Tab 160 MG PO BIDBL Insulin Aspart (NovoLOG U100 Insulin Vial) 100 U/Ml U 30-50 UNIT SUBQ TIDAC Insulin Glargine (Lantus U100 Insulin Vial) 100 Unit/Ml Vial 60 SUBQ BID Loratadine (Claritin) 10 Mg Capsule 10 MG PO HS Metolazone (Metolazone) 5 Mg Tablet 5 MG PO DAILY Metronidazole (Flagyl) 500 Mg Tablet 1,000 MG PO Q12H Montelukast (Montelukast) 10 Mg Tablet 10 MG PO HS Omeprazole (Omeprazole) 40 Mg Capsule.dr 40 MG PO BIDWM Paliperidone (Paliperidone ER) 3 Mg Tab.er.24 3 MG PO QAM Prazosin (Prazosin) 5 Mg Capsule 5 MG PO HS Prednisone (PredniSONE) 20 Mg Tablet 40 MG PO DAILY Pregabalin (Lyrica) 200 Mg Capsule 200 MG PO TID Simvastatin (Simvastatin) 40 Mg Tablet 40 MG PO HS Spironolactone (Spironolactone) 50 Mg Tablet 50 MG PO BIDBL Tiotropium [place] (Spiriva Respimat) 1.25 Mcg/Actuation Mist.inhal 1.25 MCG IH QAM Topiramate (Topiramate) 50 Mg Tablet 50 MG PO BID Trazodone (Trazodone) 50 Mg Tablet 75 MG PO HS oxyCODONE-Acetaminophen 5-325 mg (oxyCODONE-Acetaminophen 5-325 mg) 1 Each Tablet 1 TAB PO QID 0800, 1200, 1700, 2200 Scheduled PRN Albuterol Sulfate (Ventolin HFA Inhaler) 200 Puff/18 Gm Inhaler 2 PUFFS INH Q4H PRN PRN For Shortness of Breath Butalbital/Acetamin/Caff 50-300-40 mg (Butalbital/Acetamin/Caff 50-300-40 mg) 1 Each Capsule 1 CAPSULE PO Q4H PRN PRN Headache Docusate Sodium (Colace) 100 Mg Capsule 200 MG PO BID PRN PRN For Constipation Epinephrine (Epipen 2-Pietro) 0.3 Mg/0.3 Ml Auto.injct 0.3 MG IM PRN For Anaphyllaxis Hydroxyzine HCl (HydrOXYzine Hcl) 50 Mg Tablet 50 MG PO Q6H PRN PRN For Anxiety Nitroglycerin SL (Nitrostat) 0.4 Mg Tab.subl 0.4 MG SL Q5MIN PRN PRN For Chest Pain Tizanidine (Tizanidine) 4 Mg Tablet 4 MG PO TID PRN PRN For Spasm Miscellaneous Medications Cefuroxime Axetil (Cefuroxime) 500 Mg Tablet 500 MG PO General Time Seen by MD: 15:32 Chief Complaint Other (fluid retention) Hx Obtained From: Patient Arrived By: Walk-in Sudden in Onset?: No Onset Occurred: More than a week ago... (3 weeks) Symptom Duration: Since onset Recent Healthcare: No recent hospitalization, Recent doctor visit Similar Sx Previous: No Risk Factors PERC Rule Age 50 or over All PERC criteria "No", PERC rule satisfied Past Medical History Past Medical History Fibromyalgia Type 2 diabetes COPD Asthma Restless leg Bipolar disorder Depression CVA Sleep apnea-On BIPAP Arthritis GERD Chronic back pain Past Surgical History Right ankle ORIF and hardware removal Exostectomy and Achilles tendon lengthening. Left eye surgery. She has a prosthetic left eye. Arthroscopic knee and shoulder surgery. Family History Mother: CHF, CKD, DM, stroke, breast cancer Father: Cardiovascular disease, CKD, alcoholic Brother: Cardiovascular disease (7 stents), alcoholic Smoking History Current Every Day Smoker Social History Alcohol Use: "Social" Drug Use: Denies drug use Other Social History: Good social support, Local resident Ambulatory Status Independent Review of Systems Review of Systems Note: lower extremity edema Constitutional: Denies: Fever Respiratory: Reports: Shortness of breath, Denies: Prod cough, clear, Prod cough, green Cardiovascular: Reports: Chest pain Musculoskeletal: Reports: Extremity pain, Extremity swelling (bilateral lower extremities) Skin: Reports Diaphoresis, Denies Rash Complete sys rev & neg: except as marked. Physical Exam Initial Vital Signs Vital Signs (First) Date Time Temp Pulse Resp B/P Pulse Ox O2 Delivery O2 Flow Rate FiO2 05/11/17 15:18 37.1 92 20 134/79 96 Room Air Initial VS: Reviewed, Vital signs normal General/Constitutional: Awake, Alert Neck: Atraumatic, Supple Respiratory / Chest: Atraumatic, Breath sounds = bilat, No respiratory distress faint wheezing bilaterally Cardiovascular: Heart rate NL, Regular rhythm, Heart sounds NL, No gallop, No murmurs, No rubs ENT: Atraumatic, Airway patent, Mucous membranes moist Abdomen: Atraumatic, Soft, Non-tender, No guarding, No rebound Back: Atraumatic, Full range of motion Lower Extremity / Pelvis / MS: Atraumatic, Full range of motion 1+ pitting edema, bilaterally Skin: Atraumatic, Warm, Dry Neurologic: Oriented X3, Speech NL Head / Eyes: Atraumatic, Normocephalic, PERRL, EOMI Upper Extremity / MS: Atraumatic, Full range of motion Psychiatric: Affect NL, Mood NL Interpretation & Diagnostics Lab Results Interpretation Result Diagram: 05/11/17 1550 05/11/17 1550 Test 05/11/17 15:50 White Blood Count 13.5th/mm3 (3.8-10.1) Red Blood Count 4.84mil/mm3 (3.90-5.20) Hemoglobin 14.0g/dL (12.0-15.6) Hematocrit 41.3% (35.0-46.0) Mean Corpuscular Volume 85.3fL (81-100) Mean Corpuscular Hemoglobin 28.9pg (27.0-35.0) Mean Corpuscular Hemoglobin Concent 33.9% (32.0-37.0) Red Cell Distribution Width 13.7% (12.3-15.4) Platelet Count 228bil/L (150-400) Neutrophils (%) (Auto) 71.2% (40-74) Lymphocytes (%) (Auto) 21.1% (14-46) Monocytes (%) (Auto) 5.6% (4-12) Eosinophils (%) (Auto) 1.8% (0-5) Basophils (%) (Auto) 0.1% (0-3) Sodium Level 134mEq/L (134-144) Potassium Level 3.7mEq/L (3.5-5.2) Chloride Level 94mEq/L (97-108) Carbon Dioxide Level 25mmol/L (18-29) Blood Urea Nitrogen 18mg/dL (6-24) Creatinine 0.87mg/dL (0.57-1.00) Estimat Glomerular Filtration Rate 96mL/min (>59) Glucose Level 257mg/dL (60-99) Calcium Level 9.4mg/dL (8.5-10.1) Total Bilirubin 0.3mg/dL (0.0-1.2) Aspartate Amino Transf (AST/SGOT) 19U/L (0-50) Alanine Aminotransferase (ALT/SGPT) 18U/L (0-32) Alkaline Phosphatase 128U/L (25-150) Troponin T < 0.010ug/L (0.0-0.011) Pro-B-Type Natriuretic Peptide 35.48pg/mL (0-287) Total Protein 7.3g/dL (6.4-8.4) Albumin 4.0g/dL (3.4-5.0) ECG Interpretation ECG Interpretation: Sinus rhythm of 86 No STT changes Time: 15:18 Interpreted by: ED physician X-Ray Chest Interpretation Chest Xray Interpretation: IMPRESSION: Mild cephalization of pulmonary vasculature and interstitial prominence compatible with CHF. Dictated by: Ada Araiza MD, PhD on 05/11/2017 at 16:30 Approved by: Ada Araiza MD, PhD on 05/11/2017 at 16:31 View: Portable, 1 view Interpretation / Wet Read by: Interpret - Radiologist Re-Eval/Medical Decision Med Decision/Clinical Course 56-year-old female with bilateral lower extremity edema times months. Also with some worsening shortness breath or recent days. Vital signs stable. Oxygen is normal. Chest x-ray no pneumonia. BNP is normal. Labs are stable. No acute kidney injury. No risk factors for DVT. PERC neg. lower extremity edema possibly venous insufficiency versus CHF though BNP is normal. Recommend BATSHEVA hose and echocardiogram as an outpatient. I do not see a reason for admission. Dyspnea possibly due to COPD exacerbation given she had bilateral wheezes. [place] better with nebulizer. We will prescribe steroid course. And azithromycin. Recommend follow-up primary doctor 1-2 days. Return precautions given. Re-Evaluation/Progress : Time of Eval: 17:25 Patient Status: Condition improved Re-Evaluation/Progress Note: Rechecked patient, who is comfortable. Discussed with patient results and plan to discharge. Patient agrees with plan. All questions answered at this time. Counseled Regarding: Diagnosis, Lab results, Need for follow-up, When/why to return to ED Discharge & Departure Impression: Primary Impression: Lower extremity edema Laterality: bilateral Qualified Code: R60.0 - Localized edema Additional Impression: COPD with acute exacerbation Disposition: Home Discharge Condition All VS Reviewed: Yes Condition: Stable Patient Instructions: COPD (Chronic Obstructive Pulmonary Disease) (ED), Edema (ED) Additional Instructions: Thank you for entrusting us with your care. Your labs indicate normal kidney function. Wear compression socks and continue to take your diuretics. Follow up with your primary care provider in several days. Return to the emergency department if you experience chest pain, fever, worsened swelling, shortness of breath, or any other new or worsening symptoms. Referrals: David Stephen MD (PCP) Scribe Attestation Portions of this note were transcribed by Leatha Mckinney & Reanna Reyes. I, Dr. Ulloa personally performed the history, physical exam and medical decision-making; I reviewed and confirmed the accuracy of the information in the transcribed note. Signed by: Tal Limon, 05/11/2017 and 1834. copies to: David Stephen MD, Ben M MD May 11, 2017 15:34 Leatha Mckinney May 11, 2017 16:02 REANNA REYES May 11, 2017 18:25
[2017-05-11] MEDS ORDERED: CEFU500T61 PO (15:41)
[2017-05-11] MEDS ORDERED: METO5TAB5 PO (15:41)
[2017-05-11 15:59] LABS: BASOPHILS % (AUTO) 0.1 % (0-3); EOSINOPHILS % (AUTO) 1.8 % (0-5); MONOCYTES % (AUTO) 5.6 % (4-12); Mean Corpuscular Hemoglobin 28.9 pg (27.0-35.0); Mean Corpuscular Volume 85.3 fL (81-100); NEUTROPHILS % (AUTO) 71.2 % (40-74); Platelet Count 228 bil/L (150-400)
[2017-05-11] MEDS ORDERED: Albuterol-Ipratropium 3 mL Inhalation Solution NEB ONE (16:00)
[2017-05-11] MEDS ORDERED: MethylprednisoLONE Sodium Succinate 62.5 mg/mL 2 mL Inj IVPUSH ONE (16:00)
[2017-05-11 16:15] VITALS: BP 121/59; PULSE 85; RESP 22; O2SAT 97
[2017-05-11 16:27] VITALS: PULSE 92; RESP 20; O2SAT 95
--- NOTE | 2017-05-11 16:33 | DRSVH ---
PROCEDURE: X-RAY CHEST ONE VIEW, PORTABLE ([id number]) INDICATIONS: Shortness of breath and congestive heart failure TECHNIQUE: One view of the chest was acquired. COMPARISON: , CR, XR CHEST 1VW (PORTABLE), 01/14/2017, 17:34. FINDINGS: Surgical changes and devices: Neural stimulator leads noted. Lungs and pleura: No pleural effusions or pneumothorax. Mild cephalization of pulmonary vasculature and interstitial prominence compatible with CHF. Mediastinum: Mediastinal contours appear normal. Heart size is normal. Bones and chest wall: No suspicious bony lesions. Overlying soft tissues appear unremarkable. IMPRESSION: Mild cephalization of pulmonary vasculature and interstitial prominence compatible with C HF. Dictated by: Ada Araiza MD, PhD on 05/11/2017 at 16:30 Approved by: Ada Araiza MD, PhD on 05/11/2017 at 16:31
[2017-05-11 16:38] LABS: TROPONIN T < 0.010 ug/L (0.0-0.011)
[2017-05-11] MEDS ORDERED: PRE20 PO (17:34)
[2017-05-11] MEDS ORDERED: AZIT250T4 PO ×2 (17:34→17:45)
[2017-05-11 18:18] VITALS: BP 103/43; PULSE 77; RESP 22; O2SAT 97
== END 2017-05-11 18:20 | disposition home or self-care (01) ==
LOC: SED 15:13
DX: R60.0 Localized edema (principal); J44.1 Chronic obstructive pulmonary disease with (acute) exacerbation; I10 Essential (primary) hypertension; K21.9 Gastro-esophageal reflux disease without esophagitis; Z86.73 Personal history of transient ischemic attack (TIA), and cerebral infarction without residual deficits; F17.200 Nicotine dependence, unspecified, uncomplicated; Z88.0 Allergy status to penicillin; Z88.1 Allergy status to other antibiotic agents; Z88.8 Allergy status to other drugs, medicaments and biological substances; Z79.4 Long term (current) use of insulin; Z79.899 Other long term (current) drug therapy
CPT/HCPCS: 36415; 71010; 80053; 83880; 84484; 85025; 93005; 94664; 96374; 99285; J2930; J7620

== ENCOUNTER 2017-08-12 13:14 | Inpatient (IN) | payer MEDICARE, MEDICAID ==
[2017-08-12] VITALS (10 sets, daily range): BP systolic 111–152; BP diastolic 52–85; PULSE 71–110; RESP 15–28; O2SAT 93–97
[~2017-08-12] VITALS: Ht 175.3 cm; Wt 179.5 kg
[~2017-08-12 13:14] MED LIST changes: +AZIT250T4 PO; +CEFU500T61 PO; -LEVO750T9 PO; +METO5TAB5 PO; +PRE20 PO
[2017-08-12] MEDS ORDERED: Albuterol-Ipratropium 3 mL Inhalation Solution ONE (13:21)
--- NOTE | 2017-08-12 13:42 | ED.REPORT ---
HPI-Dyspnea / Wheezing Date of Service Aug 12, 2017 ED Provider: Naeem Mcdonald MD Pt is a 56 y/o female with a history of COPD, asthma, sleep apnea, hypertension , and DM who presents to the ED c/o SOB onset earlier today when she woke up. Additional symptoms include fatigue, cough, nausea during a bad coughing episode , and lower leg edema that is baseline. She denies fever, bloody cough, or vomiting. She has had similar symptoms previously, but never this bad. Pt denies taking any new medications recently. Nursing Notes Stated Complaint: SOB Chief Complaint: Respiratory Distress Nursing Notes Reviewed: Yes ([employer], [employer] not reconciled) Allergies: Coded Allergies: Penicillins (Verified Allergy, Severe, Anaphylaxis/SWELLING, 08/12/17) fluoxetine (Verified Allergy, Severe, MOOD ALTERATION, 08/12/17) haloperidol (Verified Allergy, Severe, body jerks, 08/12/17) lithium (Verified Allergy, Severe, SWELLING, 08/12/17) morphine (Verified Allergy, Severe, Hallucinations, 08/12/17) propoxyphene (Verified Allergy, Severe, NAUSEA, 08/12/17) sumatriptan (Verified Allergy, Severe, 08/12/17) HIGH BLOOD PRESSURE tyropanic acid (Verified Allergy, Severe, Nausea, 08/12/17) erythromycin base (Verified Allergy, Intermediate, severe abd pain, ) propranolol (Verified Allergy, Intermediate, hypotension, 08/12/17) cephalexin (Verified Allergy, Unknown, 08/12/17) paliperidone (Verified Allergy, Unknown, breast swelling, 08/12/17) Uncoded Allergies: ASPARAGUS (Allergy, Mild, UNKNOWN, 10/12/16) STRAWBERRIES (Allergy, Unknown, UNKNOWN, 09/22/12) Scheduled Ascorbate Calcium (Vitamin C) 500 Mg Tablet 1,000 MG PO DAILY Bacillus Coagulans (Probiotic) 10 Billion Cell Capsule.dr 1 EACH PO DAILY Cholecalciferol (Vitamin D3) (Vitamin D) 1,000 Unit Tablet 2,000 UNIT PO DAILY Cyanocobalamin (Cyanocobalamin Injection) 1,000 Mcg/1 Ml Vial 1,000 MCG IM every OTHER month Fluticasone Propionate (Fluticasone Propionate) 50 Mcg/Actuation [place].susp 1 SPRAY NS BID Fluticasone/Vilanterol (Breo Ellipta 200-25 Mcg INH) 200 Mcg-25 Mcg/Dose Blst.w.dev 1 EACH IH QAM Furosemide (Furosemide) 80 Mg Tab 160 MG PO BIDBL Insulin Aspart (NovoLOG U-100 Pen) 100 Unit/Ml Insuln.pen 60-80 UNITS SUBQ TIDAC Insulin Glargine (Lantus U100 Solostar Insulin Pen) 100 Unit/1 Ml Insuln.pen 75 UNITS SUBQ BID Montelukast (Singulair) 10 Mg Tablet 10 MG PO HS Mupirocin (Mupirocin Ointment) 22 Gm Oint...g. 1 APPLIC TOP TID Omeprazole (Omeprazole) 40 Mg Capsule.dr 40 MG PO QAM Pramipexole Dihydrochloride (Mirapex) 0.5 Mg Tablet 0.5 MG PO HS Prednisone (Deltasone) 20 Mg Tablet 40 MG PO DAILY Pregabalin (Lyrica) 200 Mg Capsule 200 MG PO TID Quetiapine Fumarate (Quetiapine Fumarate) 50 Mg Tablet 50 MG PO HS Simvastatin (Simvastatin) 40 Mg Tablet 40 MG PO HS Spironolactone (Spironolactone) 50 Mg Tablet 50 MG PO BIDBL Tiotropium [place] (Spiriva Respimat) 4 Gm Mist.inhal 2 PUFFS INHALATION DAILY Topiramate (Topiramate) 50 Mg Tablet 50 MG PO BID Trazodone (Trazodone) 50 Mg Tablet 100 MG PO HS Scheduled PRN Albuterol Neb Soln (Albuterol Neb Soln) 2.5 Mg/3 Ml Vial.neb 2.5 MG INHALATION QID PRN PRN For Shortness of Breath Albuterol Sulfate (Ventolin HFA Inhaler) 200 Puff/18 Gm Inhaler 2 PUFFS INH Q4H PRN PRN For Shortness of Breath Benzonatate (Benzonatate) 100 Mg Capsule 100 MG PO TID PRN PRN For Cough Butalbital/Acetamin/Caff 50-300-40 mg (Butalbital/Acetamin/Caff 50-300-40 mg) 1 Each Capsule 1 CAPSULE PO Q4H PRN PRN Headache Docusate Sodium (Colace) 100 Mg Capsule 200 MG PO BID PRN PRN For Constipation Epinephrine (Epipen 2-Pietro) 0.3 Mg/0.3 Ml Auto.injct 0.3 MG IM PRN For Anaphyllaxis Ipratropium/Albuterol Sulfate (Iprat-Albut 0.5-3(2.5) mg/3 mL Inhalant Soln) 3 Ml Ampul.neb 3 ML IH Q3H PRN PRN For Shortness of Breath Meclizine (Bonine) 25 Mg Tab.chew 25 MG PO TID PRN PRN For Dizziness Melatonin/Pyridoxine (Melatonin 5 mg Tablet) 1 Each Tablet 1-2 EACH PO HS PRN PRN Insomnia Nitroglycerin SL (Nitrostat) 0.4 Mg Tab.subl 0.4 MG SL Q5MIN PRN PRN For Chest Pain Prochlorperazine Maleate (Prochlorperazine) 10 Mg Tablet 10 MG PO Q8 PRN PRN For Nausea/Vomiting for nausea with migraine hydrOXYzine Hcl (HydrOXYzine Hcl) 25 Mg Tablet 25 MG PO BID PRN PRN For Anxiety or Agitation oxyCODONE-Acetaminophen 10-325 mg (oxyCODONE-Acetaminophen 10-325 mg) 1 Each Tablet 1 EACH PO QID PRN PRN For Pain General Time Seen by MD: 13:40 Chief Complaint Shortness of breath Hx Obtained From: Patient Arrived By: Walk-in Sudden in Onset?: Yes Onset Occurred: 1 - 4 hours ago Symptom Duration: Constant Quality: Painful Severity: Current: Mild Severity: Maximum: Moderate Recent Healthcare: Recent doctor visit Similar Sx Previous: Yes Past Medical History Past Medical History Fibromyalgia Type 2 diabetes COPD Asthma Restless leg Bipolar disorder Depression CVA Sleep apnea-On BIPAP Arthritis GERD Chronic back pain Past Surgical History Right ankle ORIF and hardware removal Exostectomy and Achilles tendon lengthening. Left eye surgery. She has a prosthetic left eye. Arthroscopic knee and shoulder surgery. Family History Mother: CHF, CKD, DM, stroke, breast cancer Father: Cardiovascular disease, CKD, alcoholic Brother: Cardiovascular disease (7 stents), alcoholic Smoking History Current Every Day Smoker Social History Alcohol Use: "Social" Drug Use: Denies drug use Other Social History: Good social support, Local resident Ambulatory Status Independent Review of Systems Constitutional: Reports: Fatigue, Denies: Fever Respiratory: Reports: Shortness of breath, Denies: Prod cough, bloody Musculoskeletal: Reports: Extremity swelling (lower leg edema, baseline) Complete sys rev & neg: except as marked. GI: Reports: Nausea, Denies: Vomiting Physical Exam Initial Vital Signs Vital Signs (First) Date Time Temp Pulse Resp B/P Pulse Ox O2 Delivery O2 Flow Rate FiO2 08/12/17 13:16 36.8 86 28 152/85 96 Room Air Initial VS: Reviewed, Vital signs abnormal Head / Eyes: Atraumatic Abdomen / GI: Soft, Non-tender, No guarding, No rebound, No distention Extremities: Vascular intact, Neuro intact, No swelling, No tenderness Skin: Warm, Dry, No cyanosis Psychiatric: Mood/affect normal, Behavior normal, Normal thought content General/Constitutional: Awake, Alert Distress / Hydration: Positive: Distress moderate Behavior: Positive: Anxious Appearance / Presentation: Positive: Obese Dyspneic Neck: Atraumatic, Supple, No meningismus Resp Distress / Stridor: Positive: Resp distress moderate Wheezing / Retractions: Positive: Wheezing inspiratory, Wheezing moderate Cardiovascular: Heart rate NL, Regular rhythm, Heart sounds NL, No gallop, No murmurs Heart Sounds / Murmur: Negative: Murmur present... Abdomen: Atraumatic, Soft Trauma - General: Negative: Stab wound, Stab wounds multiple Lower Extremity / Pelvis / MS: Atraumatic, Inspection NL, Full range of motion , No swelling, Non-tender, No erythema, No deformity, Neurologic intact Skin: Color NL, No rash, Warm, Dry, Turgor NL Neurologic: Oriented X3, Speech NL, No motor deficits, No sensory deficits Interpretation & Diagnostics Lab Results Interpretation Result Diagram: 08/13/17 0310 08/13/17 0310 Test 08/12/17 13:51 08/12/17 14:09 08/12/17 14:23 Hemoglobin A1c 7.9% (4.8-5.6) Troponin T 0.010ug/L (0.0-0.011) Pro-B-Type Natriuretic Peptide 108.6pg/mL (0-287) Urine Color Straw (YELLOW) Urine Appearance Hazy (CLEAR,HAZY) Urine pH 6.0 (5.0-8.0) Urine Specific [place] 1.010 (1.003-1.035) Urine Protein Negativemg/dL (NEG,TRACE) Urine Glucose (UA) Negativemg/dL (NEGATIVE) Urine Ketones Negativemg/dL (NEGATIVE) Urine Occult Blood Trace (NEGATIVE) Urine Nitrite Negative (NEGATIVE) Urine Bilirubin Negative (NEGATIVE) Urine Urobilinogen Normalmg/dL (NORMAL) Urine Leukocyte Esterase Negative (NEGATIVE) Urine RBC 0-2/hpf (0-2) Urine WBC 0-5/hpf (0-5) Urine Epithelial Cells Occasional/hpf (NONE-MOD) Urine Crystals None seen (NONE SEEN) Urine Bacteria None/hpf (NONE-FEW) Urine Hyaline Casts None/lpf (NONE) Urine Granular Casts None seen (NONE SEEN) Urine Waxy Casts None seen (NONE SEEN) Urine Red Blood Cell Casts None seen (NONE SEEN) Urine White Blood Cell Casts None seen (NONE SEEN) Urine Mucus None seen (None Seen) Urine Trichomonas None seen (NONE SEEN) Urine Yeast None (NONE SEEN) Urinalysis Comment None Urine Culture Reflexed Not indicated Hold [place] Top Tube Received (Received) Lab Results Interpretation: CBC normal CMP normal ECG Interpretation ECG Interpretation: Sinus rhythm, rate 72 Time: 13:51 Interpreted by: ED physician X-Ray Chest Interpretation Chest Xray Interpretation: IMPRESSION: No acute disease Dictated by: Manuel Sandoval M.D. on 08/12/2017 at 13:28 Approved by: Manuel Sandoval M.D. on 08/12/2017 at 13:29 View: Portable, 1 view Interpretation / Wet Read by: Interpret - Radiologist Re-Eval/Medical Decision Med Decision/Clinical Course This is a 56-year-old female with a history of COPD and obstructive sleep apnea woke with increasing shortness of breath and wheezing today. On exam she is significantly bronchospastic, afebrile. She has increased work of breathing. She is a home BiPAP machine she brought with her, so were doing some in-line nebs as well. Nasal end-tidal CO2 was normal at 36 without evidence of hypercapnic respiratory failure. Chest x-rays negative. Patient to steroids magnesium. Labs are normal. She remains significant bronchospasm and admitted for ongoing therapy. A britta infiltrate is not evident. Patient has azithromycin/macrolide allergy. This been discussed with Dr. aydee Donaldson Source of Hx: Old records Re-Evaluation/Progress #1: Time of Eval: 14:00 Re-Evaluation/Progress Note: Lab analyzer down, labs are not reading Re-Evaluation/Progress #2: Time of Eval: 15:34 Re-Evaluation/Progress Note: Pt rechecked. Discussed plan for admission. Pt understands and agrees with plan. All questions addressed. Consultation : Referral / Consult Name: Aydee Donaldson DO Consulted With: Hospitalist Call Returned at: 14:25 Weather Stripper: Will see patient, Agrees with plan, Accepts admit Note: Discussed pt's case with hospitalist, Dr. Donaldson. She accepts admission. Differential Diagnosis: Positive: COPD exacerbation, Respiratory insufficiency , Negative: Acute coronary syndrome, Cardiogenic shock, Dysrhythmia, Myocardial infarction, Pneumonia, Pneumothorax, Pulmonary embolism Counseled Regarding: Diagnosis, Lab results, Need for admission Discharge & Departure Impression: Primary Impression: COPD with acute exacerbation Discharge Condition All VS Reviewed: Yes Condition: Stable Referrals: David Stephen MD (PCP) Crit Care Except Billable Proc Time Spent: 30-74 minutes Services Performed: Patient management by me, Time spent at bedside, Reviewing test results, Reviewing imaging, Discussing patient care, Documentation in record Scribe Attestation Portions of this note were transcribed by Lavinia Saldivar. I, Dr. Mcdonald, personally performed the history, physical exam and medical decision-making; I reviewed and confirmed the accuracy of the information in the transcribed note. Signed by: Tal Bernard, 08/12/17. copies to: David Stephen MD, Matthew F MD Aug 12, 2017 13:41 Lavinia Saldivar Aug 12, 2017 13:51 None seen (NONE SEEN) Urine White Blood Cell Casts None seen (NONE SEEN) Urine Mucus None seen (None Seen) Urine Trichomonas None seen (NONE SEEN) Urine Yeast None (NONE SEEN) Urinalysis Comment None Urine Culture Reflexed Not indicated Hold [place]rd Top Tube Received (Received) Lab Results Interpretation: CBC normal CMP normal ECG Interpretation ECG Interpretation: Sinus rhythm, rate 72 Time: 13:51 Interpreted by: ED physician X-Ray Chest Interpretation Chest Xray Interpretation:
[2017-08-12] MEDS ORDERED: Albuterol 2.5 mg/3 mL Inhalation Solution NEB ONE ×3 (13:44→18:18)
[2017-08-12] MEDS ORDERED: MethylprednisoLONE Sodium Succinate 62.5 mg/mL 2 mL Inj IVPUSH ONE (13:45)
[2017-08-12] MEDS ORDERED: Magnesium Sulf 2 Gm/50mL Water 2 GM in IV Premix 1 EACH IV ONE (13:45)
[2017-08-12] MEDS ORDERED: Butalbital-Acet-Caffeine Tablet PO ONE (14:20)
--- NOTE | 2017-08-12 14:30 | DRSVH ---
PROCEDURE: X-RAY CHEST ONE VIEW, PORTABLE ([id number]) INDICATIONS: SHORTNESS OF BREATH TECHNIQUE: One view of the chest was acquired. COMPARISON: [facility], CR, XR CHEST 1VW (PORTABLE), 05/11/2017, 15:27. FINDINGS: Surgical changes and devices: Spinal electrodes noted Lungs and pleura: No pleural effusions or pneumothorax. Lungs are clear. Diffuse scarring/atelectas is, unchanged. Mediastinum: Mediastinal contours appear normal. Heart size is normal. Bones and chest wall: No suspicious bony lesions. Overlying soft tissues appear unremarkable. IMPRESSION: No acute disease Dictated by: Manuel Sandoval M.D. on 08/12/2017 at 13:28 Approved by: Manuel Sandoval M.D. on 08/12/2017 at 13:29
[2017-08-12 14:31] LABS: BASOPHILS % (AUTO) 0.4 % (0-3); EOSINOPHILS % (AUTO) 2.4 % (0-5); MONOCYTES % (AUTO) 8.6 % (4-12); Mean Corpuscular Hemoglobin 28.1 pg (27.0-35.0); Mean Corpuscular Volume 85.7 fL (81-100); NEUTROPHILS % (AUTO) 62.9 % (40-74); Platelet Count 219 bil/L (150-400)
[2017-08-12 14:52] LABS: TROPONIN T 0.01 ug/L (0.0-0.011)
[2017-08-12] MEDS ORDERED: IPRA3AMP IH (14:52)
[2017-08-12] MEDS ORDERED: HYDR-656 PO (14:52)
[2017-08-12] MEDS ORDERED: ALBU2.5V4 INHALATION (14:52)
[2017-08-12] MEDS ORDERED: BENZ100C8 PO (14:52)
[2017-08-12] MEDS ORDERED: CYA1000I IM (14:52)
[2017-08-12] MEDS ORDERED: INSU100I13 SUBQ (14:52)
[2017-08-12] MEDS ORDERED: NITR0.4T SL (14:57)
[2017-08-12] MEDS ORDERED: MECL-114 PO (14:57)
[2017-08-12] MEDS ORDERED: MUPI22OI2 TOP (14:57)
[2017-08-12] MEDS ORDERED: MELA1TAB16 PO (14:57)
[2017-08-12] MEDS ORDERED: PRAM0.5T3 PO (14:57)
[2017-08-12] MEDS ORDERED: INSU100I SUBQ (15:03)
[2017-08-12] MEDS ORDERED: OXYC-466 PO (15:03)
[2017-08-12] MEDS ORDERED: BACI1CAP6 PO (15:03)
[2017-08-12] MEDS ORDERED: MONT10TA20 PO (15:03)
[2017-08-12] MEDS ORDERED: QUET50TA55 PO (15:03)
[2017-08-12] MEDS ORDERED: PROC10TA PO (15:03)
[2017-08-12] MEDS ORDERED: CHOL100043 PO (15:06)
[2017-08-12] MEDS ORDERED: ASCO-294 PO (15:06)
[2017-08-12] MEDS ORDERED: TIOT4MIS2 INHALATION (15:06)
[2017-08-12] MEDS ORDERED: Alum-Mag Hydrox-Simeth 30 mL Suspension PO PRN ×2 (15:10→17:00)
[2017-08-12] MEDS ORDERED: Ondansetron 2 mg/mL 2 mL Inj IVPUSH PRN ×2 (15:10→17:00)
[2017-08-12 15:24] LABS: APPEARANCE,URINE HAZY (CLEAR,HAZY); COLOR,URINE STRAW (YELLOW); OCCULT BLOOD,URINE TRACE (NEGATIVE); UROBILINOGEN,URINE NORMAL (NORMAL)
[2017-08-12] MEDS ORDERED: Polyethylene Glycol (PEG) 17 Gm Powder PO PRN (17:00)
[2017-08-12] MEDS ORDERED: _Albuterol 2.5 mg/3 mL Neb NEB PRN (17:05)
[2017-08-12] MEDS ORDERED: hydrOXYzine Pamoate 25 mg Capsule PO PRN (17:05)
--- NOTE | 2017-08-12 17:11 | NUR ---
Arrived 1435 - Received report from Adebayo BUSTILLO in the ED. 1545 - She arrived from the ED to [facility] 2006 with a COPD exacerbation. She was assisted into bed and was noted to be short of breath. Settled into her room. Her partner came with her. She requested to be placed on her home CPAP due to her shortness of breath even though her SpO2 readings were within limits. Admit completed by the Admission Nurse. This nurse completed her skin check and initial assessment. Telemetry and vitals obtained. 1611 - Paged Dr. Ryan. 165 - Paged Dr. Ryan who called back. He was notified that the patient had arrived, was requesting something solid to eat (instead of the ordered clear liquid diet), and wanted her home pain medications. Also, asked him if she could get some prn nebulizers. He said he was currently working on getting her orders in and would look into those things. Care continues. Addendum: 08/12/17 at 1942 by VIC JENSEN RN 1819 - Spoke to Dr. Donaldson who asked that this nurse pass along a message to Dr. Ryan. She wanted him to order an Echocardiogram, 40 mg of Prednisone daily, give him an inpatient status as he would be here for a couple days, and order 500 mg of Azithromycin daily if she was not allergic to it. 1832 - Paged Dr. Ryan who called back. This information was relayed to him. He said that he was going to order 80 mg of IV Furosemide which he wanted given TOMÁS. 1847 - Called the Pharmacy and asked that the medication be acknowledged as soon as possible. They said that a Pharmacist was working on his orders right then. Asked Gina RN, the night charge nurse, if she could give the medication as this nurse was needing to give report to the oncoming shift. She said she would. 1901 - Gina said she called the Pharmacy twice and was told the medication would have to be sent up from Pharmacy. About 1914 - Gina said the Furosemide came and she was able to administer it. patternmaker pressure cast notified. Care continues.
--- NOTE | 2017-08-12 17:29 | PCM.HPMED ---
Subjective Date of Service Aug 12, 2017 Primary Provider: Admitting Physician: Aydee Donaldson DO Primary Care Physician: David Stephen MD Attending Physician: Aydee Donaldson DO Chief Complaint: Shortness of breath History of Present Illness: Pt is a 56 y/o female with a history of COPD, asthma, sleep apnea, hypertension , and DM who presents to the ED with SOB. Patient states that over the course of the last 2 days she has become progressively short of breath, she attributes this mainly to an upper respiratory infection which has not gone away. This morning the patient awoke feeling significantly short of breath and immediately reported to the emergency department at that time. Additional symptoms include fatigue, cough, nausea during a bad coughing episode, and baseline lower leg edema. She denies fever, bloody cough, or vomiting. She states that she has only recently been diagnosed with COPD and has never had an exacerbation of such. Patient is currently seeing Dr. Durbin as an outpatient, and states that she has an appointment scheduled for 08/13. Pt denies taking any new medications recently. Upon arrival to the emergency department she was found to be significantly bronchospastic with increased work of breathing. Patient was treated with home BiPAP as well as duonebs. Nasal end-tidal CO2 was normal at 36 without evidence of hypercapnia or respiratory failure. Chest x-ray was negative for fluid congestion or suggestion of pneumonia. Patient's labs are all within normal limits with the exception of glucose which was mildly elevated at 127. Patient was admitted to the hospital for significant bronchospasm and admitted for ongoing therapy. Review of Systems: Review of systems negative except as listed in history of present illness Allergies Coded Allergies: Penicillins (Verified Allergy, Severe, Anaphylaxis/SWELLING, 08/12/17) fluoxetine (Verified Allergy, Severe, MOOD ALTERATION, 08/12/17) haloperidol (Verified Allergy, Severe, body jerks, 08/12/17) lithium (Verified Allergy, Severe, SWELLING, 08/12/17) morphine (Verified Allergy, Severe, Hallucinations, 08/12/17) propoxyphene (Verified Allergy, Severe, NAUSEA, 08/12/17) sumatriptan (Verified Allergy, Severe, 08/12/17) HIGH BLOOD PRESSURE tyropanic acid (Verified Allergy, Severe, Nausea, 08/12/17) erythromycin base (Verified Allergy, Intermediate, severe abd pain, ) propranolol (Verified Allergy, Intermediate, hypotension, 08/12/17) cephalexin (Verified Allergy, Unknown, 08/12/17) paliperidone (Verified Allergy, Unknown, breast swelling, 08/12/17) Uncoded Allergies: ASPARAGUS (Allergy, Mild, UNKNOWN, 10/12/16) STRAWBERRIES (Allergy, Unknown, UNKNOWN, 09/22/12) Home Medications Albuterol nebulized 2.3 mg per 3 mL PRN Albuterol sulfate 2 puffs every 4 hours when necessary Butalbital/acetaminophen/caffeine 50-300-40 milligrams Breo one puff daily Furosemide 160 mg twice a day Hydroxyzine 25 mg twice a day when necessary Insulin aspart 60-80 units subcutaneous 3 times a day Insulin Lantus 75 units twice a day DuoNeb's 3 mL every 3 hours when necessary Meclizine 25 mg 3 times a day Melatonin 5 mg daily at bedtime Montelukast 10 mg daily at bedtime Omeprazole 40 mg daily Oxycodone 10-325 mg 4 times a day when necessary Mirapex 0.5 mg daily at bedtime Lyrica 200 mg 3 times a day 2 type 50 mg daily at bedtime Simvastatin 40 mg daily at bedtime Spironolactone 50 mg twice a day Spiriva 2 puffs daily Topiramate 50 mg twice a day Trazodone 100 mg daily at bedtime PMH Fibromyalgia Type 2 diabetes COPD Asthma Restless leg Bipolar disorder Depression CVA Sleep apnea-On BIPAP Arthritis GERD Chronic back pain Surgical History Right ankle ORIF and hardware removal Exostectomy and Achilles tendon lengthening. Left eye surgery. She has a prosthetic left eye. Arthroscopic knee and shoulder surgery. Family History Mother: CHF, CKD, DM, stroke, breast cancer Father: Cardiovascular disease, CKD, alcoholic Brother: Cardiovascular disease (7 stents), alcoholic Social History Hx Alcohol Use: No Hx Substance Use: No Hx Tobacco Use: Yes (10 cigarettes/day) Smoking Status: Current Every Day Smoker Exam Vital Signs Vital Sign - Last Date Time Temp Pulse Resp B/P Pulse Ox O2 Delivery O2 Flow Rate FiO2 08/12/17 16:34 79 08/12/17 16:20 CPAP/BIPAP 08/12/17 15:51 37.1 22 123/62 96 Exam General: Moderate respiratory distress, extremely well-nourished Head: Normocephalic, atraumatic. External ears without defect. Eyes: Pupils equal, round, and reactive to light and accommodation. Anicteric sclerae, moist conjunctivae. Neck: Normal range of motion, no lymphadenopathy noted Cardiovascular: Regular rate and rhythm with no murmurs, rubs, or gallops appreciated Pulmonary: Course breath sounds bilaterally with no crackles, wheezes, or rhonchi. Dyspnea with talking in full sentences, no use of accessory muscles. Abdomen: Bowel tones present. Morbidly obese, Soft, nontender, nondistended. Extremities: No clubbing, cyanosis, trace edema of the lower legs bilaterally Skin: Normal temperature, turgor, and texture; no rash, ulcers, or subcutaneous nodules appreciated. Neurological: Cranial nerves grossly intact. Reflexes, coordination, and sensory function within normal limits. Normal muscle strength, tone, and bulk. Psychiatric: Normal mood and affect. Alert and oriented to person, place, and time Lab and Diagnostics Result Diagram: 08/12/17 1351 08/12/17 1351 X-Rays, CTs and MRIs X-RAY CHEST ONE VIEW, PORTABLE IMPRESSION: No acute disease Dictated by: Manuel Sandoval M.D. on 08/12/2017 at 13:28 Approved by: Manuel Sandoval M.D. on 08/12/2017 at 13:29 Assessment & Plan Pt is a 56 y/o female with a history of COPD, asthma, sleep apnea, hypertension , and DM who presents to the ED with SOB. Acute respiratory distress: multifactorial, present on admission, active Patient's shortness of breath likely secondary to a combination of the following diagnoses: Viral upper respiratory infection leading to COPD and/or asthma exacerbation, acute on chronic diastolic congestive heart failure, obesity hypoventilation syndrome - Not hypercapnic or hypoxic at this time - Patient given 125 mg Solu-Medrol ED - Prednisone 40 mg daily starting 08/13 for 5 days - No Azithromycin given as patient has an allergy - Chest x-ray negative - All initial labs within normal limits - Echocardiogram completed on 06/07/17 showing ejection fraction 65-70% and E/e' suggestive of diastolic CHF - Patient managed on triple therapy diuretics including high-dose Lasix and complains of increased leg swelling periodically - Continue home diuretics (spironolactone, Lasix) - Patient currently saturating well on room air with and without BiPAP in place , oxygen supplementation as needed - Keep oxygen saturation between 90-95% - Continue montelukast - Continue home inhalers/nebs (Spiriva, albuterol, DuoNeb, Breo changed to Advair) - DuoNeb scheduled every 4 while awake - Respiratory PCR pending - MRSA PCR pending Chronic diagnoses include: Type 2 diabetes - Glucose 127 on arrival - 60-80 units lispro 3 times a day with meals - 75 units Lantus nightly - A1c pending Arthritis, Fibromyalgia and Chronic back pain - Continue oxycodone - Continue Lyrica Chronic headaches - Continue Fioricet Hyperlipidemia - Continue Atorvastatin Bipolar disorder - Continue quetiapine Restless leg syndrome - Continue Mirapex Anxiety/Depression - Continue hydroxyzine - Continue quetiapine Insomnia - Continue melatonin Sleep apnea - On BIPAP Chronic nausea - Continue Compazine GERD - Protonix Disposition: Patient admitted under inpatient status with expected length of stay > 2 midnights for severity of present symptoms, complexities of treatment plan and risk for adverse event Pain Evaluation: Adequate Pain Control GI Prophylaxis: Proton Pump Inhibitor VTE Prophylaxis Indicated: VTE on Admission VTE Prophylaxis: Sub-Q Heparin (Unfractionated) Resuscitation Status: CPR: Attempt Resuscitation Time spent 60 minutes Attending Statement The patient was seen and examined together with Dr. Ryan on 08/12/17 and I have added additional information to the note above. Christiano Ryan DO Aug 12, 2017 17:29 Aydee Donaldson DO Aug 13, 2017 01:03
[2017-08-12] MEDS ORDERED: Furosemide 10 mg/mL 10 mL Inj IVPUSH ONE (18:35)
[2017-08-12] MEDS ORDERED: Glucose 40% Oral Gel 15 Gm Tube PO SCH (18:35)
[2017-08-12] MEDS ORDERED: Dextrose 10% 250 ML IV PRN (18:35)
[2017-08-12] MEDS ORDERED: Albuterol 2.5 mg/3 mL Inhalation Solution NEB PRN (20:00)
[2017-08-12] MEDS: oxyCODONE-Acetamin 10-325 mg Tablet PO PRN (20:16)
[2017-08-12] MEDS: Heparin 5,000 Unit/mL Inj SUBQ SCH (20:17)
[2017-08-12] MEDS: Albuterol-Ipratropium 3 mL Inhalation Solution NEB SCH (20:30)
[2017-08-12] MEDS: Fluticasone-Salmeterol 500-50 Inhaler INHALATION SCH (21:37)
[2017-08-12] MEDS: Butalbital-Acet-Caffeine Tablet PO PRN (21:38)
[2017-08-12] MEDS: Insulin GLARgine 100 Unit/mL Syringe SUBQ SCH (21:52)
[2017-08-12] MEDS: Insulin LISPRO High-Dose Scale SUBQ SCH (21:57)
[2017-08-13] VITALS (9 sets, daily range): BP systolic 115–134; BP diastolic 62–75; PULSE 65–89; RESP 15–22; O2SAT 89–99
[2017-08-13] MEDS: Heparin 5,000 Unit/mL Inj SUBQ SCH ×2 (00:12→08:06)
--- NOTE | 2017-08-13 00:17 | NUR ---
Lab result/ notified Dr. Barrera notified at 0003 pt tested positive for Rhino-Entero virus. No new orders at this time. Addendum: 08/13/17 at 0027 by SHAMA MICHAELS RN 0027- called back and placed pt on droplet precautions.
--- NOTE | 2017-08-13 00:27 | NUR ---
Pain/Anxiety 2114- Pt c/o generalized pain and appeared to be in high stess. Pt given hydrocodone 10mg hour previous. No c/o n/v cp. Pt received breathing tx at this time and was given HS meds including prn melatonin and fiorcet for moderate 6/10 headache. MD was notified and at bedside. MD ordered viral screen and to continue to monitor pt. 2214- Pt resting comfortably with CPAP.
[2017-08-13] MEDS: Albuterol-Ipratropium 3 mL Inhalation Solution NEB SCH ×3 (03:01→12:21)
[2017-08-13 04:40] LABS: BASOPHILS % (AUTO) 0 % (0-3); EOSINOPHILS % (AUTO) 0 % (0-5); MONOCYTES % (AUTO) 5.6 % (4-12); Mean Corpuscular Hemoglobin 28.6 pg (27.0-35.0); Mean Corpuscular Volume 85.5 fL (81-100); NEUTROPHILS % (AUTO) 82.4 % (40-74); Platelet Count 219 bil/L (150-400)
--- NOTE | 2017-08-13 04:59 | NUR ---
Respiratory 0300 Pt requested duo neb tx and RT called. Pt resting comfortably with CPAP s/p tx.
[2017-08-13 05:10] LABS: Magnesium 1.9 mg/dL (1.6-2.6); Phosphorus 2.8 mg/dL (2.5-4.9)
[2017-08-13] MEDS ORDERED: Pantoprazole 40 mg ER24 Tablet PO SCH (07:30)
[2017-08-13] MEDS ORDERED: Insulin ASPART 70/30 FlexPen 300 Unit/3 mL Inj SUBQ SCH (07:30)
[2017-08-13] MEDS: Insulin LISPRO High-Dose Scale SUBQ SCH ×2 (08:01→12:51)
[2017-08-13] MEDS: Fluticasone-Salmeterol 500-50 Inhaler INHALATION SCH (08:04)
[2017-08-13] MEDS: Insulin GLARgine 100 Unit/mL Syringe SUBQ SCH (08:09)
[2017-08-13] MEDS ORDERED: Fluticasone-Salmererol 250-50 Inhaler INHALATION ONE (08:30)
[2017-08-13] MEDS ORDERED: Tiotropium 18mcg/Cap 5 Capsule Inhaler Kit INHALATION SCH (08:30)
[2017-08-13] MEDS ORDERED: predniSONE 20 mg Tablet PO SCH (08:30)
[2017-08-13] MEDS: oxyCODONE-Acetamin 10-325 mg Tablet PO PRN (09:55)
[2017-08-13] MEDS ORDERED: PRED-508 PO (12:42)
--- NOTE | 2017-08-13 12:57 | PCM.DIMED ---
Christiano Ryan DO 08/13/17 1257: Discharge Instructions Date of Service Aug 13, 2017 Dates of Hospitalization Aug 12, 2017 at 14:36 Discharge Diagnosis Discharge Diagnosis Acute respiratory distress: multifactorial, present on admission, active Chronic diagnoses include: Type 2 diabetes Arthritis, Fibromyalgia and Chronic back pain Chronic headaches Hyperlipidemia Bipolar disorder Restless leg syndrome Anxiety/Depression Insomnia Sleep apnea Chronic nausea GERD Medication Instructions Additional med instructions We would like you to continue taking all medications as previously prescribed except for the following changes: We would like you to take prednisone 40 mg a day for the next 4 days and then stop. Test Results Test Results Chest x-ray shows no acute disease. Diet Discharge Diet: Heart Healthy, Diabetic Activity Discharge Activity: No restrictions Call your provider Call your provider for: Fever or Chills, Shortness of breath, Bleeding, Chest pain, Vomitting, Excessive diarrhea, Weakness (unilateral) Patient Instructions Patient Instructions You came to the emergency department for shortness of breath caused by an upper respiratory infection confirmed by PCR testing. We can find no other acute cause of shortness of breath at this time, however, you carry various diagnoses which would pre-dispose you to being short of breath including: COPD, asthma, obstructive sleep apnea, obesity hypoventilation syndrome. Most of these diseases are currently managed by your medication regimen, however these will continue to get worse over time if nothing is done to prevent the progression. The single most beneficial thing you could do for yourself at this time is to lose weight, eat a more healthy diet, and stop smoking. Based on your current insulin regimen, I highly suggest a ketogenic diet interspersed with long-term fasting. Please take prednisone as described above, be aware that this may increase her blood glucose over the next 5-6 days. Continue BiPAP supplementation for shortness of breath as needed. We suggest that you continue to rest. I would expect that the virus will take its course within the next 2-3 days and symptoms will slowly decrease from that point on. Continue to monitor your oxygen at home if at any point your oxygen begins to decrease below 85 and your unable to maintain saturations even with BiPAP we suggest to return to the emergency department at that time. Follow-up plan Follow-up with your primary care provider if your shortness of breath becomes acute or if the virus does not resolve within the next 5-6 days. Follow-up Provider: David Stephen MD Follow-up with PCP in: Other (as needed) Pineda Turpin MD 08/13/17 1724: Discharge Instructions Attending's Statement The patient was seen and examined together with Dr. Ryan on 08/13/2017 and I agree with the history, exam and plan as outlined in the note above. . Christiano Ryan DO Aug 13, 2017 12:57 Pineda Turpin MD Aug 13, 2017 17:24
--- NOTE | 2017-08-13 14:07 | NUR ---
Social Work: Home Health Recommendation SW received T/C from PT stating they evaluated pt and are recommending HH PT for balance training and mobility. SW paged MD requesting HH order based on PT recommendations. SW to coordinate HH after MD has placed HH orders and completed F2F. PUSHPA will continue to follow. PRIYANK Ramos
--- NOTE | 2017-08-13 14:14 | NUR ---
Ulises Page: (R2) for HH order based on PT recommendations PRIYANK Ramos
--- NOTE | 2017-08-13 14:36 | NUR ---
Evaluation completed. Please go to "Notes" then click on "Assessments and Notes" (bottom left corner of screen). Then select appropriate discipline tab on top of screen.
[2017-08-13] MEDS: Butalbital-Acet-Caffeine Tablet PO PRN (14:45)
--- NOTE | 2017-08-13 14:49 | NUR ---
Social Work: Initial Assessment/Discharge/Multidisciplinary Rounds D: EMR reviewed. Please see initial assessment linked for more information. Pt is a 56 y/o female admitted [place] - readmit risk score of 6 - for COPD exacerbation per H&P. Pt's insurance is [facility] and [facility]. PCP is David Stephen MD. PUSHPA met with pt and S/O at bedside to conduct initial assessment. Pt was alert and oriented x3. PUSHPA explained role, wrote phone number on board in room, and provided [facility] Discharge Planning Checklist and encouraged pt to contact SW with any discharge planning needs or questions. Pt discussed in multidisciplinary rounds and is medically stable for discharge home today with via POV. SW received MD order for PT. Pt is currently open with [facility] for OT and RN. SW provided choicelist. Pt would like to resume services with [facility]. PUSHPA received completed F2F to add PT to current services. T/C to Candy at [facility] regarding pt's discharge and new PT order. Maynor vasquez retrieved F2F from hospital today. SW provided access. Pt lives in a single-level home - with no steps to enter and wheelchair access - with her S/O in [place]. Pt has hx at [facility] and with [facility]. Pt owns a nebulizer, CPAP, wheelchair, walker, and cane. Pt has CHRISTINE caregiver 115 hrs/month. CM is Sampson Ag. PUSHPA faxed H&P to at [phone]. PUSHPA discussed discharge plan with pt and S/O. Pt to discharge home with [facility] PT and resume OT and RN services. Pt's S/O Jocelynn to provide transport home today via POV. No other discharge needs identified. Pt and spouse do not have concerns regarding discharge and are agreeable to discharge plan. A: Pt who has CHRISTINE 115 hrs/month at baseline. P: Pt to discharge home with S/O today via POV. Pt to resume [facility] OT RN and start new PT services. Candy from [facility] retrieved F2F and confirmed resumption of services. No other discharge needs identified or MD orders received. PRIYANK Ramos Addendum: 08/13/17 at 1504 by GILLIAN DAVE SS Amended: Links added.
--- NOTE | 2017-08-13 15:41 | NUR ---
Discharge Pt discharged to home with transportation by her partner. Pt's IV dc'd intact. Telemetry removed and tech notified. Pt's follow up appointments, discharge instructions and new medications were reviewed. All questions answered and pt voiced understanding. Pt's belongings, including cpap machine, were packed and gathered for transportation home with pt. Pt was escorted off unit to her partner's vehicle by RADHA.
--- NOTE | 2017-08-13 16:41 | PCM.DC.MED ---
Discharge Summary Date of Service Aug 13, 2017 Dates of Hospitalization Date of Hospital Admission Aug 12, 2017 at 14:36 Date of Discharge: Aug 13, 2017 Providers: Admitting Physician: Aydee Donaldson DO Primary Care Physician: David Stephen MD Attending Physician: Pineda Turpin MD Diagnosis at Time of Discharge Diagnosis at Time of Discharge Acute respiratory distress: multifactorial, present on admission, active Chronic diagnoses include: Type 2 diabetes Arthritis, Fibromyalgia and Chronic back pain Chronic headaches Hyperlipidemia Bipolar disorder Restless leg syndrome Anxiety/Depression Insomnia Sleep apnea Chronic nausea GERD Procedures XRay, CTs & MRIs X-RAY CHEST ONE VIEW, PORTABLE IMPRESSION: No acute disease Dictated by: Manuel Sandoval M.D. on 08/12/2017 at 13:28 Approved by: Manuel Sandoval M.D. on 08/12/2017 at 13:29 Brief History Pt is a 56 y/o female with a history of COPD, asthma, sleep apnea, hypertension , and DM who presents to the ED with SOB. Patient states that over the course of the last 2 days she has become progressively short of breath, she attributes this mainly to an upper respiratory infection which has not gone away. This morning the patient awoke feeling significantly short of breath and immediately reported to the emergency department at that time. Additional symptoms include fatigue, cough, nausea during a bad coughing episode, and baseline lower leg edema. She denies fever, bloody cough, or vomiting. She states that she has only recently been diagnosed with COPD and has never had an exacerbation of such. Patient is currently seeing Dr. Durbin as an outpatient, and states that she has an appointment scheduled for 08/13. Pt denies taking any new medications recently. Upon arrival to the emergency department she was found to be significantly bronchospastic with increased work of breathing. Patient was treated with home BiPAP as well as duonebs. Nasal end-tidal CO2 was normal at 36 without evidence of hypercapnia or respiratory failure. Chest x-ray was negative for fluid congestion or suggestion of pneumonia. Patient's labs are all within normal limits with the exception of glucose which was mildly elevated at 127. Patient was admitted to the hospital for significant bronchospasm and admitted for ongoing therapy. Hospital Course Pt is a 56 y/o female with a history of COPD, asthma, sleep apnea, hypertension , and DM who presents to the ED with SOB. Of note: Due to the patient's body habitus and subsequent medical conditions secondary to this state, the patient presents with difficulty leaving the house. For this reason home health with nursing is highly suggested. Physical therapy also saw the patient and felt that she was in great need of home health with PT for at-home support. Acute respiratory distress: multifactorial, present on admission, active Patient's shortness of breath likely secondary to a combination of the following diagnoses: Viral upper respiratory infection leading to COPD and/or asthma exacerbation, acute on chronic diastolic congestive heart failure, obesity hypoventilation syndrome - Not hypercapnic or hypoxic at this time - Patient given 125 mg Solu-Medrol ED - Prednisone 40 mg daily starting 08/13 for 5 days - No Azithromycin given as patient has an allergy - Chest x-ray negative - All initial labs within normal limits - Echocardiogram completed on 06/07/17 showing ejection fraction 65-70% and E/e' suggestive of diastolic CHF - Patient managed on triple therapy diuretics including high-dose Lasix and complains of increased leg swelling periodically - Continue home diuretics (spironolactone, Lasix) - Patient currently saturating well on room air with and without BiPAP in place , oxygen supplementation as needed - Keep oxygen saturation between 90-95% - Continue montelukast - Continue home inhalers/nebs (Spiriva, albuterol, DuoNeb, Breo changed to Advair) - DuoNeb scheduled every 4 while awake - Respiratory PCR showing rhinovirus infection - MRSA PCR negative Chronic diagnoses include: Type 2 diabetes, uncontrolled - Glucose 127 on arrival - 60-80 units lispro 3 times a day with meals - 75 units Lantus nightly Arthritis, Fibromyalgia and Chronic back pain - Continue oxycodone - Continue Lyrica Chronic headaches - Continue Fioricet Hyperlipidemia - Continue Atorvastatin Bipolar disorder - Continue quetiapine Restless leg syndrome - Continue Mirapex Anxiety/Depression - Continue hydroxyzine - Continue quetiapine Insomnia - Continue melatonin Sleep apnea - On BIPAP Chronic nausea - Continue Compazine GERD - Protonix Morbid obesity - BMI greater than 55 -Tobacco dependence - Greater than 5 minutes of tobacco cessation counseling provided . Exam Vital Signs (Last) Date Time Temp Pulse Resp B/P Pulse Ox O2 Delivery O2 Flow Rate FiO2 08/13/17 12:21 70 15 99 BiPAP 9.00 08/13/17 11:27 37.0 134/75 Exam General: Moderate respiratory distress, extremely well-nourished Head: Normocephalic, atraumatic. External ears without defect. Eyes: Pupils equal, round, and reactive to light and accommodation. Anicteric sclerae, moist conjunctivae. Neck: Normal range of motion, no lymphadenopathy noted Cardiovascular: Regular rate and rhythm with no murmurs, rubs, or gallops appreciated Pulmonary: Course breath sounds bilaterally with no crackles, wheezes, or rhonchi. Dyspnea with talking in full sentences, no use of accessory muscles. Abdomen: Bowel tones present. Morbidly obese, Soft, nontender, nondistended. Extremities: No clubbing, cyanosis, trace edema of the lower legs bilaterally Skin: Normal temperature, turgor, and texture; no rash, ulcers, or subcutaneous nodules appreciated. Neurological: Cranial nerves grossly intact. Reflexes, coordination, and sensory function within normal limits. Psychiatric: Normal mood and affect. Alert and oriented to person, place, and time Test 08/12/17 13:51 08/12/17 14:09 08/12/17 14:23 08/12/17 19:54 Hemoglobin A1c 7.9% (4.8-5.6) Troponin T 0.010ug/L (0.0-0.011) Pro-B-Type Natriuretic Peptide 108.6pg/mL (0-287) Urine Color Straw (YELLOW) Urine Appearance Hazy (CLEAR,HAZY) Urine pH 6.0 (5.0-8.0) Urine Specific [place] 1.010 (1.003-1.035) Urine Protein Negativemg/dL (NEG,TRACE) Urine Glucose (UA) Negativemg/dL (NEGATIVE) Urine Ketones Negativemg/dL (NEGATIVE) Urine Occult Blood Trace (NEGATIVE) Urine Nitrite Negative (NEGATIVE) Urine Bilirubin Negative (NEGATIVE) Urine Urobilinogen Normalmg/dL (NORMAL) Urine Leukocyte Esterase Negative (NEGATIVE) Urine RBC 0-2/hpf (0-2) Urine WBC 0-5/hpf (0-5) Urine Epithelial Cells Occasional/hpf (NONE-MOD) Urine Crystals None seen (NONE SEEN) Urine Bacteria None/hpf (NONE-FEW) Urine Hyaline Casts None/lpf (NONE) Urine Granular Casts None seen (NONE SEEN) Urine Waxy Casts None seen (NONE SEEN) Urine Red Blood Cell Casts None seen (NONE SEEN) Urine White Blood Cell Casts None seen (NONE SEEN) Urine Mucus None seen (None Seen) Urine Trichomonas None seen (NONE SEEN) Urine Yeast None (NONE SEEN) Urinalysis Comment None Urine Culture Reflexed Not indicated Hold Byrd Top Tube Received (Received) Hold Urine Received (Received) Test 08/13/17 03:10 White Blood Count 8.0th/mm3 (3.8-10.1) Red Blood Count 4.82mil/mm3 (3.90-5.20) Hemoglobin 13.8g/dL (12.0-15.6) Hematocrit 41.2% (35.0-46.0) Mean Corpuscular Volume 85.5fL (81-100) Mean Corpuscular Hemoglobin 28.6pg (27.0-35.0) Mean Corpuscular Hemoglobin Concent 33.5% (32.0-37.0) Red Cell Distribution Width 13.5% (12.3-15.4) Platelet Count 219bil/L (150-400) Neutrophils (%) (Auto) 82.4% (40-74) Lymphocytes (%) (Auto) 11.8% (14-46) Monocytes (%) (Auto) 5.6% (4-12) Eosinophils (%) (Auto) 0% (0-5) Basophils (%) (Auto) 0% (0-3) Sodium Level 138mEq/L (134-144) Potassium Level 4.6mEq/L (3.5-5.2) Chloride Level 99mEq/L (97-108) Carbon Dioxide Level 19mmol/L (18-29) Blood Urea Nitrogen 18mg/dL (6-24) Creatinine 1.10mg/dL (0.57-1.00) Estimat Glomerular Filtration Rate 73mL/min (>59) Glucose Level 273mg/dL (60-99) Calcium Level 9.5mg/dL (8.5-10.1) Phosphorus Level 2.8mg/dL (2.5-4.9) Magnesium Level 1.9mg/dL (1.6-2.6) Total Bilirubin 0.4mg/dL (0.0-1.2) Aspartate Amino Transf (AST/SGOT) 25U/L (0-50) Alanine Aminotransferase (ALT/SGPT) 22U/L (0-32) Alkaline Phosphatase 111U/L (25-150) Total Protein 6.8g/dL (6.4-8.4) Albumin 4.0g/dL (3.4-5.0) Triglycerides Level 116mg/dL (0-149) Cholesterol Level 166mg/dL (100-199) LDL Cholesterol, Calculated 119.800mg/dL (0-99) VLDL Cholesterol 23.200mg/dL HDL Cholesterol 23mg/dL (>39) Cholesterol/HDL Ratio 7.22 (0.0-4.4) Procalcitonin 0.03ng/mL (0.00-0.08) Thyroid Stimulating Hormone (TSH) 0.312uIU/mL (0.450-4.500) Discharge Medications Discharge Medications Ascorbate Calcium (Vitamin C) 500 Mg Tablet 1,000 MG PO DAILY (Reported) Bacillus Coagulans (Probiotic) 10 Billion Cell Capsule.dr 1 EACH PO DAILY ( Reported) Cholecalciferol (Vitamin D3) (Vitamin D) 1,000 Unit Tablet 2,000 UNIT PO DAILY ( Reported) Cyanocobalamin (Cyanocobalamin Injection) 1,000 Mcg/1 Ml Vial 1,000 MCG IM every OTHER month (Reported) Fluticasone Propionate (Fluticasone Propionate) 50 Mcg/Actuation Delta.susp 1 SPRAY NS BID (Reported) Fluticasone/Vilanterol (Breo Ellipta 200-25 Mcg INH) 200 Mcg-25 Mcg/Dose Blst.w.dev 1 EACH IH QAM (Reported) Furosemide (Furosemide) 80 Mg Tab 160 MG PO BIDBL (Reported) Insulin Aspart (NovoLOG U-100 Pen) 100 Unit/Ml Insuln.pen 60-80 UNITS SUBQ TIDAC (Reported) Insulin Glargine (Lantus U100 Solostar Insulin Pen) 100 Unit/1 Ml Insuln.pen 75 UNITS SUBQ BID (Reported) Montelukast (Singulair) 10 Mg Tablet 10 MG PO HS (Reported) Mupirocin (Mupirocin Ointment) 22 Gm Oint...g. 1 APPLIC TOP TID (Reported) Omeprazole (Omeprazole) 40 Mg Capsule.dr 40 MG PO QAM (Reported) Pramipexole Dihydrochloride (Mirapex) 0.5 Mg Tablet 0.5 MG PO HS (Reported) Prednisone (Deltasone) 20 Mg Tablet 40 MG PO DAILY Prescribed by: ISABELLE GOLDBERG DO Pregabalin (Lyrica) 200 Mg Capsule 200 MG PO TID (Reported) Quetiapine Fumarate (Quetiapine Fumarate) 50 Mg Tablet 50 MG PO HS (Reported) Simvastatin (Simvastatin) 40 Mg Tablet 40 MG PO HS (Reported) Spironolactone (Spironolactone) 50 Mg Tablet 50 MG PO BIDBL (Reported) Tiotropium [place] (Spiriva Respimat) 4 Gm Mist.inhal 2 PUFFS INHALATION DAILY ( Reported) Topiramate (Topiramate) 50 Mg Tablet 50 MG PO BID (Reported) Trazodone (Trazodone) 50 Mg Tablet 100 MG PO HS (Reported) As needed Albuterol Neb Soln (Albuterol Neb Soln) 2.5 Mg/3 Ml Vial.neb 2.5 MG INHALATION QID PRN PRN For Shortness of Breath (Reported) Albuterol Sulfate (Ventolin HFA Inhaler) 200 Puff/18 Gm Inhaler 2 PUFFS INH Q4H PRN PRN For Shortness of Breath (Reported) Benzonatate (Benzonatate) 100 Mg Capsule 100 MG PO TID PRN PRN For Cough ( Reported) Butalbital/Acetamin/Caff 50-300-40 mg (Butalbital/Acetamin/Caff 50-300-40 mg) 1 Each Capsule 1 CAPSULE PO Q4H PRN PRN Headache (Reported) Docusate Sodium (Colace) 100 Mg Capsule 200 MG PO BID PRN PRN For Constipation ( Reported) Epinephrine (Epipen 2-Pietro) 0.3 Mg/0.3 Ml Auto.injct 0.3 MG IM PRN For Anaphyllaxis (Reported) Ipratropium/Albuterol Sulfate (Iprat-Albut 0.5-3(2.5) mg/3 mL Inhalant Soln) 3 Ml Ampul.neb 3 ML IH Q3H PRN PRN For Shortness of Breath (Reported) Meclizine (Bonine) 25 Mg Tab.chew 25 MG PO TID PRN PRN For Dizziness (Reported) Melatonin/Pyridoxine (Melatonin 5 mg Tablet) 1 Each Tablet 1-2 EACH PO HS PRN PRN Insomnia (Reported) Nitroglycerin SL (Nitrostat) 0.4 Mg Tab.subl 0.4 MG SL Q5MIN PRN PRN For Chest Pain (Reported) Prochlorperazine Maleate (Prochlorperazine) 10 Mg Tablet 10 MG PO Q8 PRN PRN For Nausea/Vomiting (Reported) for nausea with migraine hydrOXYzine Hcl (HydrOXYzine Hcl) 25 Mg Tablet 25 MG PO BID PRN PRN For Anxiety or Agitation (Reported) oxyCODONE-Acetaminophen 10-325 mg (oxyCODONE-Acetaminophen 10-325 mg) 1 Each Tablet 1 EACH PO QID PRN PRN For Pain (Reported) Additional med instructions We would like you to continue taking all medications as previously prescribed except for the following changes: We would like you to take prednisone 40 mg a day for the next 4 days and then stop. Followup Plan Disposition: Home Follow-up plan Follow-up with your primary care provider if your shortness of breath becomes acute or if the virus does not resolve within the next 5-6 days. Discharge Diet: Heart Healthy, Diabetic Discharge Activity: No restrictions Patient Instructions You came to the emergency department for shortness of breath caused by an upper respiratory infection confirmed by PCR testing. We can find no other acute cause of shortness of breath at this time, however, you carry various diagnoses which would pre-dispose you to being short of breath including: COPD, asthma, obstructive sleep apnea, obesity hypoventilation syndrome. Most of these diseases are currently managed by your medication regimen, however these will continue to get worse over time if nothing is done to prevent the progression. The single most beneficial thing you could do for yourself at this time is to lose weight, eat a more healthy diet, and stop smoking. Based on your current insulin regimen, I highly suggest a ketogenic diet interspersed with long-term fasting. Please take prednisone as described above, be aware that this may increase her blood glucose over the next 5-6 days. Continue BiPAP supplementation for shortness of breath as needed. We suggest that you continue to rest. I would expect that the virus will take its course within the next 2-3 days and symptoms will slowly decrease from that point on. Continue to monitor your oxygen at home if at any point your oxygen begins to decrease below 85 and your unable to maintain saturations even with BiPAP we suggest to return to the emergency department at that time. Follow-up Provider: Daivd Stephen MD Follow-up with PCP in: Other (as needed) Time spent Greater than 30 minutes was spent in preparation of discharge with greater than 50% of that time dedicated to patient counseling and coordination of care. . Attending Statement The patient was seen and examined together with Dr. Goldberg on 08/13/2017 and I agree with the history, exam and plan as outlined in the note above. . copies to: David Stephen MD, Adam J DO Aug 13, 2017 16:41 Pineda Turpin MD Aug 13, 2017 17:23
== END 2017-08-13 15:14 | disposition home health service (06) | DRG 190 ==
LOC: SED 13:14 → PCC 14:36
PROVIDERS: ADMIT Neuromusculoskeletal Medicine & OMM; ATTEND Internal Medicine
DX: J44.1 Chronic obstructive pulmonary disease with (acute) exacerbation (principal); I50.33 Acute on chronic diastolic (congestive) heart failure; E66.2 Morbid (severe) obesity with alveolar hypoventilation; Z68.43 Body mass index [BMI] 50.0-59.9, adult; I10 Essential (primary) hypertension; G25.81 Restless legs syndrome; K21.9 Gastro-esophageal reflux disease without esophagitis; M79.7 Fibromyalgia; F17.210 Nicotine dependence, cigarettes, uncomplicated; E11.65 Type 2 diabetes mellitus with hyperglycemia; G47.00 Insomnia, unspecified; Z79.4 Long term (current) use of insulin; Z88.0 Allergy status to penicillin; Z79.51 Long term (current) use of inhaled steroids